=== PATIENT | female | born 1980 | race African-American/Black ===

== ENCOUNTER 2016-10-12 14:43 | Emergency (ER) | payer OTHER ==
[2016-10-12 15:07] VITALS: BP 131/63; PULSE 87; TEMP 98.5; BMI 34.1
[2016-10-12] MEDS ORDERED: SODIUM CHLORIDE 1,000 ML IV ONE (16:36)
[2016-10-12] MEDS ORDERED: ONDANSETRON 4 MG/2 ML VIAL IVPB ONE (16:36)
[2016-10-12] MEDS ORDERED: ONDANSETRON 4 MG/2 ML VIAL ONE (16:40)
--- NOTE | 2016-10-12 17:26 | PDOC ---
History of Present Illness - General Chief Complaint: Vomiting/Diarrhea Stated Complaint: ABD PAIN, VOMIT, HX OF CROHNS DX Time Seen by Provider: 10/12/16 16:21 History Source: Patient Exam Limitations: No Limitations - History of Present Illness Travel History: No Initial Comments: 10/12/16 19:16 The patient is a 36 year old female with significant past medical history of bipolar disorder, asthma, GERD, gastroparesis, pancreatitis, interstitial cystitis, colitis, C. difficile, Crohn's disease, diabetes, arthritis, avascular necrosis, kidney stone status post stents, cholecystectomy and lupus who presents to the ED with diarrhea, right lower abdominal pain, nausea and vomiting. She states that she has been having diarrhea for 7 days that initially started as watery and brown and now is watery and darker colored, denies melena.Pt endorsedfoul smell for th stool. She reports having one episode of blood in her stool for which she saw Dr. Herzog for who prompted her to present to the ED. She notes that her abdominal pain has worsened. She reports 2-3 days of vomiting yellowish in nature. She notes that using the bathroom or vomiting does not alleviate her symptoms. She reports chills but denies fever. She reports recent abx use for sinusitis her last done was 10/07. No sick contact. PCP: Dr. Chadwick Energy Sales Broker: Dr. Herzog Past History - Past Medical History Allergies/Adverse Reactions: Allergies Allergy/AdvReac Type Severity Reaction Status Date / Time metronidazole [From Flagyl] Allergy Rash Verified 10/12/16 15:02 PAPER TAPE Allergy Rash Uncoded 10/12/16 15:02 raw onion Allergy Uncoded 10/12/16 15:02 Home Medications: Ambulatory Orders Adalimumab [Humira] 40 mg SQ ASDIR 06/23/15 Azelastine HCl [Astepro] 1 - 2 spr NS BID 06/23/15 Calcium 600 mg PO DAILY 06/23/15 Cyclobenzaprine HCl [Flexeril] 10 mg PO TID 06/23/15 Escitalopram Oxalate [Lexapro -] 15 mg PO DAILY 06/23/15 Fluticasone Prop 0.05% Nasal [Flonase -] 1 - 2 spray NS DAILY 06/23/15 Gabapentin [Neurontin] 600 mg PO QID 06/23/15 Mometasone/Formoterol [Dulera 100 Mcg/5 Mcg Inhaler] 2 inh IH BID 06/23/15 Multivitamin [Poly-Vitamin] 1 each PO DAILY 06/23/15 Omalizumab [Xolair -] 150 mg SQ ASDIR 06/23/15 Omeprazole [Prilosec] 40 mg PO HS 06/23/15 Pentosan Polysulfate Sodium [Elmiron] 100 mg PO DAILY 06/23/15 Quetiapine Fumarate [Seroquel -] 200 mg PO AM 06/23/15 Quetiapine Fumarate [Seroquel -] 600 mg PO HS 06/23/15 Ergocalciferol (Vitamin D2) [Vitamin D2] 50,000 unit PO ASDIR 07/02/15 Oxybutynin Chloride [Ditropan -] 5 mg PO DAILY 07/02/15 Erythromycin Base [Erythromycin] 250 mg PO BID 10/03/15 Levocetirizine Dihydrochloride [Xyzal] 5 mg PO DAILY 10/03/15 Atorvastatin Ca [Lipitor] 10 mg PO HS 02/09/16 Lipase/Protease/Amylase [Crefina Dr 36,000 Units Capsule] 1 each PO TID 02/09/16 Lamotrigine [LaMICtal -] 100 mg PO DAILY 05/02/16 Benztropine Mesylate [Cogentin -] 0.5 mg PO DAILY 06/28/16 Nitrofurantoin Monohyd/M-Cryst [Macrobid -] 100 mg PO HS 06/28/16 Pantoprazole Sodium [Protonix] 40 mg PO DAILY #30 tablet.dr 06/28/16 Trazodone HCl [Oleptro ER] 150 mg PO HS 06/28/16 Anemia: Yes Asthma: Yes Cancer: No Cardiac Disorders: No CVA: No COPD: No CHF: No Dementia: No Diabetes: Yes (NIDDM) GI Disorders: Yes (Crohn's disease, GASTROPARESIS, IBS, GERD) Disorders: Yes (kidney stones, INTERSTITIAL CYSTITIS) HTN: No Hypercholesterolemia: Yes Kidney Stones: Yes Liver Disease: No Psychiatric Problems: Yes (BIPOLAR, SCHIZOPHRENIA) Suicide Attempt (Hx): No Seizures: No Thyroid Disease: No - Surgical History Abdominal Surgery: Yes Appendectomy: No Cardiac Surgery: No Cholecystectomy: Yes Lung Surgery: No Neurologic Surgery: Yes (SPINAL FUSION) Orthopedic Surgery: Yes (spinal fusion 05/2011,L KNEE ARTHROSCOPY) - Immunization History Immunization Up to Date: Yes (FLU AND PNA 05/2012) - Psycho/Social/Smoking Cessation Hx Anxiety: No Suicidal Ideation: No Smoking Status: Yes Smoking History: Current some day smoker Have you smoked in the past 12 months: No Number of Cigarettes Smoked Daily: 2 If you are a former smoker, when did you quit?: 2013 Cigars Per Day: 2 Information on smoking cessation initiated: No 'Breaking Loose' booklet given: 01/15/15 Hx Alcohol Use: No Drug/Substance Use Hx: No Substance Use Type: None Hx Substance Use Treatment: No Review of Systems - Review of Systems Able to Perform ROS?: Yes Comments:: 10/12/16 19:17 CONSTITUTIONAL: Reported: chills No reported: Fever, Diaphoresis, Generalized Weakness, Malaise, Loss of Appetite HEENT: No reported: Rhinorrhea, Nasal Congestion, Throat Pain, Throat Swelling, Difficulty Swallowing, Mouth Swelling, Ear Pain, Eye Pain, Visual Changes CARDIOVASCULAR: No reported: Chest Pain, Syncope, Palpitations, Irregular Heart Rate, Lightheadedness, Peripheral Edema RESPIRATORY: No reported: Cough, Shortness of Breath, SOB with Exertion, Orthopnea, Wheezing , Stridor, Hemoptysis GASTROINTESTINAL: Reported: abdominal pain, nausea, vomiting, diarrhea, melena, hematochezia No reported: Abdominal Distension, Constipation GENITOURINARY: No reported: Dysuria, Frequency, Urgency, Hesitancy, Flank Pain, Genital Pain MUSCULOSKELETAL: No reported: Myalgia, Arthralgia, Joint Swelling, Back pain, Neck Pain SKIN: No reported: Rash, Itching, Pallor HEMATOLOGIC/IMMUNOLOGIC: No reported: Easy Bleeding, Easy Bruising, Lymphadenopathy, Frequent infections ENDOCRINE: No reported: Unexplained Weight Gain, Unexplained Weight Loss, Heat Intolerance , Cold Intolerance NEUROLOGIC: No reported: Headache, Focal Weakness, Paresthesias, Vertigo, Lightheadedness, Unsteady Gait, Seizure, Mental Status Changes, Incontinence PSYCHIATRIC: No reported: Anxiety, Depression *Physical Exam - Vital Signs Last Vital Signs Temp Pulse Resp BP Pulse Ox 98.5 F 87 19 131/63 99 10/12/16 15:03 10/12/16 15:03 10/12/16 15:03 10/12/16 15:03 10/12/16 15:03 - Physical Exam Comments: 10/12/16 19:18 GENERAL: The patient is awake, alert, and fully oriented, Nontoxic - in no acute distress. HEAD: Normocephalic, atraumatic. EYES: extraocular movements intact, sclera anicteric, conjunctiva clear. ENT: Normal voice, Moist mucous membranes. NECK: Normal range of motion, No JVD LUNGS: Breath sounds equal, clear to auscultation bilaterally. No wheezes, no rhonchi, no rales. HEART: Regular rate and rhythm, normal S1 and S2 without murmur, rub or gallop. ABDOMEN: +Tenderness over RLQ. Soft, normoactive bowel sounds. No guarding, no rebound. No masses. No CVA tenderness EXTREMITIES: Normal range of motion, no edema. No clubbing or cyanosis. No cords , erythema, or tenderness. NEUROLOGICAL: No facial asymmetry, Normal speech, normal gait. PSYCH: Normal mood, normal affect. SKIN: Warm, Dry, normal turgor. ED Treatment Course - LABORATORY CBC & Chemistry Diagram: 10/12/16 18:00 10/12/16 18:00 - Medications Given in the ED: ED Medications Discontinued Medications Generic Name Dose Route Start Last Admin Trade Name Freq PRN Reason Stop Dose Admin Ondansetron HCl 4 mg 10/12/16 16:36 10/12/16 16:42 Zofran Injection IVPB 10/12/16 16:37 4 mg ONCE ONE Administration Medical Decision Making - Medical Decision Making 10/12/16 18:43 36y hx of crohns on meds (no history of compliations secondary to crohns), pancreatitis, gastroparesis, bipolar disorder, gerd, cdiff presents with abdominal pain diarrhe x 7 days associated with vomiting for 3 days. pt had one episode of bloody diarrhea earlier today. on exam the pt is well appearing in no acute distress, mild R sided abdominal tenderness blood work reviewed will obtain CT abd with iv contrast pt given fluids/zofran for symptomatic releive morphine for pain. will sign pt out to dr. vargas to fu with CT results fallick: AMA christiansen PMD A portion of this note was documented by scribe services under my direction. I have reviewed the details of the note, within reason, and agree with the documentation with the following case summary and management plan written by me *DC/Admit/Observation/Transfer Diagnosis at time of Disposition: Abdominal pain - Discharge Dispostion Disposition: HOME Condition at time of disposition: Stable - Referrals Referrals: Behzad Chadwick MD [Primary Care Provider] - Karsten Herzog MD [Staff Physician] - - Patient Instructions Printed Discharge Instructions: DI for Abdominal Pain-Adult
[2016-10-12] MEDS ORDERED: morphine CARPU-JECT 2 MG/1 ML DISP.SYRIN IVPUSH ONE (18:02)
[2016-10-12] MEDS ORDERED: morphine CARPU-JECT 4 MG/1 ML DISP.SYRIN IVPUSH ONE (18:03)
[2016-10-12] MEDS ORDERED: morphine CARPU-JECT 4 MG/1 ML DISP.SYRIN ONE (18:04)
[2016-10-12 18:08] LABS: BASOPHIL 0.8 % (0-2.0); EOSINOPHIL 0.4 % (0-4.5); MCH 30.8 pg (25.7-33.7); MCHC 33.6 g/dl (32.0-36.0); MEAN CELL VOLUME 91.5 fl (80-96); MEAN PLT VOLUME 8.8 fl (7.5-11.1); NEUTROPHILS 57.5 % (42.8-82.8); PLATELET COUNT 298 K/MM3 (134-434); RDW 13.7 % (11.6-15.6); WHITE BLOOD COUNT 12.4 K/mm3 (4.0-10.0)
[2016-10-12 18:35] LABS: URINE APPEARANCE CLEAR; URINE BILIRUBIN NEGATIVE (NEGATIVE); URINE BLOOD NEGATIVE (NEGATIVE); URINE COLOR LTYELLOW; URINE GLUCOSE (UA) NEGATIVE (NEGATIVE); URINE KETONE NEGATIVE (NEGATIVE); URINE LEUK ESTERASE NEGATIVE (NEGATIVE); URINE NITRITE NEGATIVE (NEGATIVE); URINE PROTEIN NEGATIVE (NEGATIVE); URINE UROBILINOGEN NEGATIVE E.U./dl (0.2-1.0)
[2016-10-12 18:38] LABS: ALBUMIN 4.5 g/dl (3.4-5.0); ALK PHOS 83 U/L (45-117); ANION GAP 13 (8-16); BILIRUBIN,TOTAL 0.4 mg/dL (0.2-1.0); CALCIUM 9.6 mg/dL (8.5-10.1); CO2 22 mmol/L (21-32); CREATININE 0.8 mg/dL (0.55-1.02); GLUCOSE,RANDOM 79 mg/dL (74-106); SGOT/AST 22 U/L (15-37); SGPT/ALT 68 U/L (12-78); TOT PROT 8.2 g/dl (6.4-8.2)
--- NOTE | 2016-10-12 21:55 | PDOC ---
*Physical Exam - Vital Signs Last Vital Signs Temp Pulse Resp BP Pulse Ox 98.5 F 87 19 131/63 99 10/12/16 15:03 10/12/16 15:03 10/12/16 15:03 10/12/16 15:03 10/12/16 15:03 ED Treatment Course - LABORATORY CBC & Chemistry Diagram: 10/12/16 18:00 10/12/16 18:00 - ADDITIONAL ORDERS Additional order review: Laboratory Results 10/12/16 10/12/16 10/12/16 18:11 18:00 18:00 Sodium 142 Potassium 4.0 Chloride 107 Carbon Dioxide 22 Anion Gap 13 BUN 6 L Creatinine 0.8 D Creat Clearance w eGFR > 60 Random Glucose 79 Calcium 9.6 Total Bilirubin 0.4 D AST 22 D ALT 68 D Alkaline Phosphatase 83 Total Protein 8.2 Albumin 4.5 Lipase 165 Serum , Qual Negative Urine Color Ltyellow Urine Appearance Clear Urine pH 6.0 Ur Specific Gulliver 1.011 Urine Protein Negative Urine Glucose (UA) Negative Urine Ketones Negative Urine Blood Negative Urine Nitrite Negative Urine Bilirubin Negative Urine Urobilinogen Negative Ur Leukocyte Esterase Negative 10/12/16 18:00 RBC 4.87 MCV 91.5 MCHC 33.6 RDW 13.7 MPV 8.8 Neutrophils % 57.5 Lymphocytes % 38.0 Monocytes % 3.3 L Eosinophils % 0.4 D Basophils % 0.8 - Medications Given in the ED: ED Medications Discontinued Medications Generic Name Dose Route Start Last Admin Trade Name Freq PRN Reason Stop Dose Admin Sodium Chloride 1,000 mls @ 1,000 mls/hr 10/12/16 16:36 10/12/16 16:42 Normal Saline - IV 10/12/16 17:35 1,000 mls/hr .Q1H ONE Administration Morphine Sulfate 2 mg 10/12/16 18:02 10/12/16 20:50 Morphine Injection - IVPUSH 10/12/16 18:03 Not Given ONCE ONE Morphine Sulfate 4 mg 10/12/16 18:03 10/12/16 18:10 Morphine Injection - IVPUSH 10/12/16 18:04 4 mg ONCE ONE Administration Ondansetron HCl 4 mg 10/12/16 16:36 10/12/16 16:42 Zofran Injection IVPB 10/12/16 16:37 4 mg ONCE ONE Administration Medical Decision Making - Medical Decision Making 10/12/16 21:54 Ct scan negative for intra-abdominal pathology. Pt will be discharge Pt to follow up with Dr. Herzog *DC/Admit/Observation/Transfer Diagnosis at time of Disposition: Abdominal pain Qualifiers: Abdominal location: generalized Qualified Code(s): R10.84 - Generalized abdominal pain - Discharge Dispostion Disposition: HOME Condition at time of disposition: Stable Admit: No - Referrals Referrals: Behzad Chadwick MD [Primary Care Provider] - Karsten Herzog MD [Staff Physician] - - Patient Instructions Printed Discharge Instructions: DI for Abdominal Pain-Adult
== END 2016-10-12 22:18 | disposition home or self-care (01) ==
LOC: JER 14:43
PROC: 3E033NZ Introduction of Analgesics, Hypnotics, Sedatives into Peripheral Vein, Percutaneous Approach (ICD-10-PCS; principal; 2016-10-12)
PROC: 3E033GC Introduction of Other Therapeutic Substance into Peripheral Vein, Percutaneous Approach (ICD-10-PCS; 2016-10-12)
DX: R10.84 Generalized abdominal pain (principal); K50.90 Crohn's disease, unspecified, without complications; E11.9 Type 2 diabetes mellitus without complications; Z79.84 Long term (current) use of oral hypoglycemic drugs; K86.1 Other chronic pancreatitis; K31.84 Gastroparesis; J45.909 Unspecified asthma, uncomplicated; D64.9 Anemia, unspecified; F25.0 Schizoaffective disorder, bipolar type; E78.00 Pure hypercholesterolemia, unspecified
CPT/HCPCS: 36415; 74177-TC; 80053; 81003; 83690; 84703; 85025; 99281-25; Q9967

== ENCOUNTER 2016-10-15 13:23 | Inpatient (IN) | payer OTHER ==
[2016-10-15 13:30] VITALS: BMI 34.1
--- NOTE | 2016-10-15 14:26 | PDOC ---
History of Present Illness - General History Source: Patient Exam Limitations: No Limitations - History of Present Illness Initial Comments: 10/15/16 14:42 The patient is a 36 year old female, with a significant past medical history of bipolar disorder, asthma, GERD, gastroparesis, pancreatitis, interstitial cystitis, colitis, C.difficile, Crohns disease, diabetes, arthritis, avascular necrosis, kidney stones s/p stents, and lupus, who presents to the emergency department with abdominal pain, nausea, vomiting and diarrhea for 10 days. She ranks her abdominal pain a 10/10 in pain intensity. The patient reports she was here 10/12/16 where she because she wasn't feeling better. She reports having about 11 episodes of diarrhea per day. She denies any blood in her vomit and diarrhea. She denies fever, chills, headache and dizziness. Allergies: Metronidazole Past surgical history:Colectomy Social history: Current smoker. Drinks socially. PCP: GASTRO: <Watson Santos - Last Filed: 10/15/16 17:01> <Rima Tracy - Last Filed: 10/18/16 14:30> - General Chief Complaint: Pain Stated Complaint: ABDOMINAL PAIN Time Seen by Provider: 10/15/16 14:05 Past History <Watson Santos - Last Filed: 10/15/16 17:01> - Past Medical History Anemia: Yes Asthma: Yes Cancer: No Cardiac Disorders: No CVA: No COPD: No CHF: No Dementia: No Diabetes: Yes (NIDDM) GI Disorders: Yes (Crohn's disease, GASTROPARESIS, IBS, GERD) Disorders: Yes (kidney stones, INTERSTITIAL CYSTITIS) HTN: No Hypercholesterolemia: Yes Kidney Stones: Yes Liver Disease: No Psychiatric Problems: Yes (BIPOLAR, SCHIZOPHRENIA) Suicide Attempt (Hx): No Seizures: No Thyroid Disease: No Other medical history: LUPUS - Surgical History Abdominal Surgery: Yes Appendectomy: No Cardiac Surgery: No Cholecystectomy: Yes Lung Surgery: No Neurologic Surgery: Yes (SPINAL FUSION) Orthopedic Surgery: Yes (spinal fusion 05/2011,L KNEE ARTHROSCOPY) - Immunization History Immunization Up to Date: Yes (FLU AND PNA 05/2012) - Psycho/Social/Smoking Cessation Hx Anxiety: No Suicidal Ideation: No Smoking Status: Yes Smoking History: Current every day smoker Have you smoked in the past 12 months: No Number of Cigarettes Smoked Daily: 3 If you are a former smoker, when did you quit?: 2013 Cigars Per Day: 2 Information on smoking cessation initiated: No 'Breaking Loose' booklet given: 01/15/15 Hx Alcohol Use: Yes (SOCIAL) Drug/Substance Use Hx: No Substance Use Type: None Hx Substance Use Treatment: No <Rima Tracy - Last Filed: 10/18/16 14:30> - Past Medical History Allergies/Adverse Reactions: Allergies Allergy/AdvReac Type Severity Reaction Status Date / Time metronidazole [From Flagyl] AdvReac Vomiting Verified 10/15/16 18:27 PAPER TAPE Allergy Rash Uncoded 10/15/16 13:30 raw onion Allergy Uncoded 10/15/16 13:30 Home Medications: Ambulatory Orders Adalimumab [Humira] 40 mg SQ ASDIR 06/23/15 Azelastine HCl [Astepro] 1 - 2 spr NS BID 06/23/15 Calcium 600 mg PO DAILY 06/23/15 Cyclobenzaprine HCl [Flexeril] 10 mg PO TID 06/23/15 Escitalopram Oxalate [Lexapro -] 15 mg PO DAILY 06/23/15 Fluticasone Prop 0.05% Nasal [Flonase -] 1 - 2 spray NS DAILY 06/23/15 Gabapentin [Neurontin] 600 mg PO QID 06/23/15 Mometasone/Formoterol [Dulera 100 Mcg/5 Mcg Inhaler] 2 inh IH BID 06/23/15 Multivitamin [Poly-Vitamin] 1 each PO DAILY 06/23/15 Omeprazole [Prilosec] 40 mg PO HS 06/23/15 Quetiapine Fumarate [Seroquel -] 200 mg PO AM 06/23/15 Quetiapine Fumarate [Seroquel -] 600 mg PO HS 06/23/15 Oxybutynin Chloride [Ditropan -] 5 mg PO DAILY 07/02/15 Atorvastatin Ca [Lipitor] 10 mg PO HS 02/09/16 Lamotrigine [LaMICtal -] 100 mg PO DAILY 05/02/16 Benztropine Mesylate [Cogentin -] 0.5 mg PO DAILY 06/28/16 Pantoprazole Sodium [Protonix] 40 mg PO DAILY #30 tablet.dr 06/28/16 Metronidazole 500 mg PO TID #15 tablet 10/17/16 Review of Systems - Review of Systems Able to Perform ROS?: Yes Comments:: 10/15/16 14:42 GENERAL/CONSTITUTIONAL: No fever or chills. No weakness. HEAD, EYES, EARS, NOSE AND THROAT: No change in vision. No ear pain or discharge. No sore throat. CARDIOVASCULAR: No chest pain or shortness of breath. RESPIRATORY: No cough, wheezing, or hemoptysis. GASTROINTESTINAL: yes nausea, vomiting, diarrhea and abd pain. GENITOURINARY: No dysuria, frequency, or change in urination. MUSCULOSKELETAL: No joint or muscle swelling or pain. No neck or back pain. SKIN: No rash NEUROLOGIC: No headache, vertigo, loss of consciousness, or change in strength/ sensation. ENDOCRINE: No increased thirst. No abnormal weight change. HEMATOLOGIC/LYMPHATIC: No anemia, easy bleeding, or history of blood clots. ALLERGIC/IMMUNOLOGIC: No hives or skin allergy. <Watson Santos - Last Filed: 10/15/16 17:01> *Physical Exam - Vital Signs Last Vital Signs Temp Pulse Resp BP Pulse Ox 98.0 F 110 H 20 133/79 97 10/15/16 13:27 10/15/16 13:27 10/15/16 13:27 10/15/16 13:27 10/15/16 13:27 - Physical Exam Comments: 10/15/16 14:42 GENERAL: Awake, alert, and fully oriented, in no acute distress HEAD: No signs of trauma EYES: PERRLA, EOMI, sclera anicteric, conjunctiva clear ENT: Auricles normal inspection, hearing grossly normal, nares patent, oropharynx clear without exudates. Dry mucosa NECK: Normal ROM, supple, no lymphadenopathy, JVD, or masses LUNGS: Breath sounds equal, clear to auscultation bilaterally. No wheezes, and no crackles HEART: Tachycardia. Regular rate and rhythm, normal S1 and S2, no murmurs, rubs or gallops ABDOMEN: Diffuse mild tenderness. Soft, normoactive bowel sounds. No guarding, no rebound. No masses EXTREMITIES: Normal range of motion, no edema. No clubbing or cyanosis. No cords, erythema, or tenderness NEUROLOGICAL: Cranial nerves II through XII grossly intact. Normal speech, normal gait SKIN: Warm, Dry, normal turgor, no rashes or lesions noted. <Watson Santos - Last Filed: 10/15/16 17:01> - Vital Signs Last Vital Signs Temp Pulse Resp BP Pulse Ox 98.0 F 110 H 20 133/79 97 10/15/16 13:27 10/15/16 13:27 10/15/16 13:27 10/15/16 13:27 10/15/16 13:27 <Rima Tracy - Last Filed: 10/18/16 14:30> ED Treatment Course - LABORATORY CBC & Chemistry Diagram: 10/15/16 14:55 10/15/16 14:55 <Watson Santos - Last Filed: 10/15/16 17:01> - LABORATORY CBC & Chemistry Diagram: 10/16/16 07:00 10/17/16 06:15 <Rima Tracy - Last Filed: 10/18/16 14:30> Medical Decision Making - Medical Decision Making 10/15/16 16:06 Call made to , will call back. 10/15/16 16:46 Call made to , awaiting call back. 10/15/16 17:01 Call back from , case discussed. <Watson Santos - Last Filed: 10/15/16 17:01> - Medical Decision Making 10/15/16 17:02 Patient recently in the ED for similar symptoms, was discharged home after negative CT. Results reviewed- no signs of colitis. She has been taking immodium at the recommendation of Dr. Herzog, which is not working. I have given lomotil in ED, as recent CT was normal. Patient with some improvement. I will continue IV hydration and pain medication. Case d/w Dr. Fournier. Will evaluate tomorrow. <Rima Tracy - Last Filed: 10/18/16 14:30> *DC/Admit/Observation/Transfer - Attestations Scribe Attestion: 10/15/16 14:42 Documentation prepared by Watson Santos, acting as anesthesiology medical doctor for Rima Tracy MD. <Watson Santos - Last Filed: 10/15/16 17:01> - Discharge Dispostion Admit: Yes <Rima Tracy - Last Filed: 10/18/16 14:30> Diagnosis at time of Disposition: Diarrhea Qualifiers: Diarrhea type: unspecified type Qualified Code(s): R19.7 - Diarrhea, unspecified Crohn's disease (regional enteritis) Qualifiers: Gastrointestinal tract location: unspecified location Digestive disease complication type: without complication Qualified Code(s): K50.90 - Crohn's disease, unspecified, without complications - Discharge Dispostion Disposition: HOME Condition at time of disposition: Stable - Prescriptions - Referrals
[2016-10-15] MEDS ORDERED: DIPHENOXYLATE 2.5/ATROPINE.025 1 COMBO TABLET PO ONE (14:40)
[2016-10-15] MEDS ORDERED: SODIUM CHLORIDE 1,000 ML IV STA ×2 (14:40→16:24)
[2016-10-15] MEDS ORDERED: HYDROmorphone HCL CARPU-JECT 1 MG/1 ML DISP.SYRIN IVPUSH ONE ×2 (14:42→16:24)
[2016-10-15] MEDS ORDERED: HYDROmorphone HCL CARPU-JECT 1 MG/1 ML DISP.SYRIN ONE ×2 (14:56→16:32)
[2016-10-15] MEDS ORDERED: DIPHENOXYLATE 2.5/ATROPINE.025 1 COMBO TABLET ONE (14:57)
[2016-10-15 15:03] LABS: URINE APPEARANCE SLCLOUDY; URINE BILIRUBIN NEGATIVE (NEGATIVE); URINE BLOOD NEGATIVE (NEGATIVE); URINE COLOR YELLOW; URINE GLUCOSE (UA) NEGATIVE (NEGATIVE); URINE KETONE NEGATIVE (NEGATIVE); URINE LEUK ESTERASE NEGATIVE (NEGATIVE); URINE NITRITE NEGATIVE (NEGATIVE); URINE PROTEIN 1+ (NEGATIVE); URINE UROBILINOGEN NEGATIVE E.U./dl (0.2-1.0)
[2016-10-15] MEDS ORDERED: ONDANSETRON 4 MG/2 ML VIAL IVPUSH ONE (15:03)
[2016-10-15 15:08] LABS: URINE BACTERIA RARE /hpf (NONE SEEN); URINE MUCUS FEW; URINE RBC 1 /hpf (0-3); URINE WBC 3 /hpf (3-5)
[2016-10-15] MEDS ORDERED: ONDANSETRON 4 MG/2 ML VIAL ONE (15:08)
[2016-10-15 15:15] LABS: BASOPHIL 0.1 % (0-2.0); EOSINOPHIL 0.6 % (0-4.5); MCH 30.3 pg (25.7-33.7); MCHC 33.5 g/dl (32.0-36.0); MEAN CELL VOLUME 90.4 fl (80-96); MEAN PLT VOLUME 8.6 fl (7.5-11.1); NEUTROPHILS 83.8 % (42.8-82.8); PLATELET COUNT 292 K/MM3 (134-434); RDW 13.7 % (11.6-15.6); WHITE BLOOD COUNT 16.1 K/mm3 (4.0-10.0)
[2016-10-15 15:49] LABS: ANION GAP 12 (8-16); BILIRUBIN,TOTAL 0.5 mg/dL (0.2-1.0); CALCIUM 9.1 mg/dL (8.5-10.1); CO2 19 mmol/L (21-32); CREATININE 0.9 mg/dL (0.55-1.02); GLUCOSE,RANDOM 104 mg/dL (74-106); SGOT/AST 16 U/L (15-37); SGPT/ALT 49 U/L (12-78); TOT PROT 7.9 g/dl (6.4-8.2)
[2016-10-15 15:52] LABS: ALK PHOS 76 U/L (45-117)
[2016-10-15] MEDS ORDERED: VANCOMYCIN 250 MG/5 ML ORAL SOLUTION PO ONE (16:45)
[2016-10-15] MEDS ORDERED: VANCOMYCIN 1 GRAM (PRE-DOCKED) 250 ML IVPB ONE (17:11)
[2016-10-15] MEDS ORDERED: FAMOTIDINE 20 MG/50 ML IVPB 50 ML IVPB ONE ×2 (17:20→17:21)
[2016-10-15] MEDS ORDERED: MAG HYDROX/AL HYDROX/SIMETH 30 ML UNIT-DOSE CUP PO ONE (17:37)
[2016-10-15] MEDS ORDERED: MAG HYDROX/AL HYDROX/SIMETH 30 ML UNIT-DOSE CUP ONE (17:39)
--- NOTE | 2016-10-15 17:39 | HP ---
[id number] old female with PMHx of Crohns Disease, GERD, gastroparesis, c.diff , colitis, interstitial cystitis, diabetes, nephrolithiasis S/P stent placement , bipolar disorder, asthma who was sent to to the ED by GI Dr. Soto for abdominal pain and diarrhea. The patient reports diarrhea began on 10/06 and has become progressively worse. She reports on Sunday she began to vomit bilious substance. She denies any blood in in stool or vomitus. She states for two days she has not been able to keep any solid food down. She reports pain is epigastric that radiates down to her RLQ. She also reports fever of 102.2 last night. She took tylenol but vomited it up. CTAP on 10/12/16 with no evidence of Crohn's disease or acute pathology within the abdomen or pelvis. The patient denies chills, dysuria, frequency, headache, dizziness, chest pain, shortness of breath ER course was notable for: (1) temp 98, HR 110, BP 133/79, resp 20, O2 97% (2) WBC 16.1 (3) Lomotil given Recent Travel: No PAST MEDICAL HISTORY: As above Social History: Smoking: Yest Alcohol: Socially Drugs: No Family History: Allergies metronidazole [From Flagyl] Allergy (Verified 10/15/16 13:30) Rash PAPER TAPE Allergy (Uncoded 10/15/16 13:30) Rash raw onion Allergy (Uncoded 10/15/16 13:30) HOME MEDICATIONS: Medication Instructions Recorded Adalimumab [Humira] 40 mg SQ ASDIR 06/23/15 Azelastine HCl [Astepro] 1 - 2 spr NS BID 06/23/15 Calcium 600 mg PO DAILY 06/23/15 Cyclobenzaprine HCl [Flexeril] 10 mg PO TID 06/23/15 Escitalopram Oxalate [Lexapro -] 15 mg PO DAILY 06/23/15 Fluticasone Prop 0.05% Nasal 1 - 2 spray NS DAILY 06/23/15 [Flonase -] Gabapentin [Neurontin] 600 mg PO QID 06/23/15 Mometasone/Formoterol [Dulera 100 2 inh IH BID 06/23/15 Mcg/5 Mcg Inhaler] Multivitamin [Poly-Vitamin] 1 each PO DAILY 06/23/15 Omeprazole [Prilosec] 40 mg PO HS 06/23/15 Quetiapine Fumarate [Seroquel -] 200 mg PO AM 06/23/15 Quetiapine Fumarate [Seroquel -] 600 mg PO HS 06/23/15 Oxybutynin Chloride [Ditropan -] 5 mg PO DAILY 07/02/15 Atorvastatin Ca [Lipitor] 10 mg PO HS 02/09/16 Lamotrigine [LaMICtal -] 100 mg PO DAILY 05/02/16 Benztropine Mesylate [Cogentin -] 0.5 mg PO DAILY 06/28/16 Nitrofurantoin Monohyd/M-Cryst 100 mg PO HS 06/28/16 [Macrobid -] Pantoprazole Sodium [Protonix] 40 mg PO DAILY #30 tablet.dr 06/28/16 Trazodone HCl [Oleptro ER] 150 mg PO HS 06/28/16 REVIEW OF SYSTEMS CONSTITUTIONAL: Fever 102.2 last night. Absent: chills, diaphoresis, generalized weakness, malaise, loss of appetite, weight change HEENT: Absent: rhinorrhea, nasal congestion, throat pain, throat swelling, difficulty swallowing, mouth swelling, ear pain, eye pain, visual changes CARDIOVASCULAR: Absent: chest pain, syncope, palpitations, irregular heart rate , lightheadedness, peripheral edema RESPIRATORY: Absent: cough, shortness of breath, dyspnea with exertion, orthopnea, wheezing, stridor, hemoptysis GASTROINTESTINAL: Diarrhea since 10/06/16, vomiting began on 10/10. Epigastric abdominal pain radiating to RLQ. Absent: abdominal distension, constipation, melena, hematochezia GENITOURINARY: Absent: dysuria, frequency, urgency, hesitancy, hematuria, flank pain, genital pain MUSCULOSKELETAL: Absent: myalgia, arthralgia, joint swelling, back pain, neck pain SKIN: Absent: rash, itching, pallor HEMATOLOGIC/IMMUNOLOGIC: Absent: easy bleeding, easy bruising, lymphadenopathy, frequent infections ENDOCRINE:Absent: unexplained weight gain, unexplained weight loss, heat intolerance, cold intolerance NEUROLOGIC: Absent: headache, focal weakness or paresthesias, dizziness, unsteady gait, seizure, mental status changes, bladder or bowel incontinence PSYCHIATRIC: Absent: anxiety, depression, suicidal or homicidal ideation, hallucinations. PHYSICAL EXAMINATION GENERAL: Awake, alert, and fully oriented, in no acute distress. HEAD: Normal with no signs of trauma. EYES: Pupils equal, round and reactive to light, extraocular movements intact, sclera anicteric, conjunctiva clear. No lid lag. EARS, NOSE, THROAT: Tongue piercing. Ears normal, nares patent, oropharynx clear without exudates. Moist mucous membranes. NECK: Normal range of motion, supple without lymphadenopathy, JVD, or masses. LUNGS: Breath sounds equal, clear to auscultation bilaterally. No wheezes, and no crackles. No accessory muscle use. HEART: Regular rate and rhythm, normal S1 and S2 without murmur, rub or gallop. ABDOMEN: Soft, Epigastric and RLQ tenderness. Soft, not distended, normoactive bowel sounds, no guarding, no rebound, no masses. MUSCULOSKELETAL: Normal range of motion at all joints. No bony deformities or tenderness. No CVA tenderness. UPPER EXTREMITIES: 2+ pulses, warm, well-perfused. No cyanosis. No clubbing. Cap refill <2 seconds. No peripheral edema. LOWER EXTREMITIES: 2+ pulses, warm, well-perfused. No calf tenderness. No peripheral edema. NEUROLOGICAL: Cranial nerves II-XII intact. Normal speech. Normal gait. PSYCHIATRIC: Cooperative. Good eye contact. Appropriate mood and affect. SKIN: Warm, dry, normal turgor, no rashes or lesions noted. CBCD WBC 16.1 K/mm3 (4.0-10.0) H 10/15/16 14:55 RBC 4.61 M/mm3 (3.60-5.2) 10/15/16 14:55 Hgb 14.0 GM/dL (10.7-15.3) 10/15/16 14:55 Hct 41.7 % (32.4-45.2) 10/15/16 14:55 MCV 90.4 fl (80-96) 10/15/16 14:55 MCHC 33.5 g/dl (32.0-36.0) 10/15/16 14:55 RDW 13.7 % (11.6-15.6) 10/15/16 14:55 Plt Count 292 K/MM3 (134-434) 10/15/16 14:55 MPV 8.6 fl (7.5-11.1) 10/15/16 14:55 CMP Sodium 139 mmol/L (136-145) 10/15/16 14:55 Potassium 3.6 mmol/L (3.5-5.1) 10/15/16 14:55 Chloride 108 mmol/L (98-107) H 10/15/16 14:55 Carbon Dioxide 19 mmol/L (21-32) L 10/15/16 14:55 Anion Gap 12 (8-16) 10/15/16 14:55 BUN 8 mg/dL (7-18) D 10/15/16 14:55 Creatinine 0.9 mg/dL (0.55-1.02) 10/15/16 14:55 Creat Clearance w eGFR > 60 (>60) 10/15/16 14:55 Random Glucose 104 mg/dL (74-106) D 10/15/16 14:55 Calcium 9.1 mg/dL (8.5-10.1) 10/15/16 14:55 Total Bilirubin 0.5 mg/dL (0.2-1.0) D 10/15/16 14:55 AST 16 U/L (15-37) D 10/15/16 14:55 ALT 49 U/L (12-78) D 10/15/16 14:55 Alkaline Phosphatase 76 U/L (45-117) 10/15/16 14:55 Total Protein 7.9 g/dl (6.4-8.2) 10/15/16 14:55 Albumin 4.0 g/dl (3.4-5.0) 10/15/16 14:55 Assessment: This is a 36 year old female with PMHx of Crohns Disease, GERD, gastroparesis, colitis, interstitial cystitis, diabetes, nephrolithiasis S/P stent placement, bipolar disorder, asthma who was sent to to the ED by GI Dr. Soto for abdominal pain and diarrhea since 10/06. Plan: 1) GI: Diarrhea, r/o c.diff colitis, sepsis 2/2 gastroenteritis +/- c/diff - CTAP from 10/12 with no evidence of acute pathology - Per patient, hx of c.diff - Leukocytosis - F/u c.diff culture - F/u stool cultures - Continue Vancomycin po - IV fluids - Zofran prn nausea - F/u GI consult GERD - Continue Protonix 2) Psych: Bipolar disorder - Continue home medications 3) Pulmonary: Asthma - No active issues - Continue Dulera 4) F/E/N: - Monitor electrolytes - CL diet 5) Prophylaxis: - SCDs bilaterally - Lovenox 40mg sq daily 6) Dispo: - Requires continued inpatient care CODE STATUS: FULL CODE Visit type - Emergency Visit Emergency Visit: Yes ED Registration Date: 10/15/16 Care time: The patient presented to the Emergency Department on the above date and was hospitalized for further evaluation of their emergent condition. - New Patient This patient is new to me today: Yes Date on this admission: 10/15/16 - Critical Care Critical Care patient: No
[2016-10-15] MEDS ORDERED: SODIUM CHLORIDE 1,000 ML IV SCH (17:45)
[2016-10-15] MEDS ORDERED: ONDANSETRON 4 MG/2 ML VIAL IVPB PRN (18:16)
[2016-10-15] MEDS: GABAPENTIN 300 MG CAPSULE (FP) PO SCH ×2 (18:30→22:00)
[2016-10-15] MEDS ORDERED: GABAPENTIN 100 MG CAPSULE (FP) ONE (18:39)
[2016-10-15] MEDS: SODIUM CHLORIDE 1,000 ML IV SCH (18:45)
[2016-10-15] MEDS ORDERED: PT OWN MED DRAWER 7, Y5N ONE (21:20)
[2016-10-15] MEDS ORDERED: TRAZODONE HCL 150 MG PO SCH (22:00)
[2016-10-15] MEDS ORDERED: AZELASTINE HCL NS SCH (22:00)
[2016-10-15] MEDS: QUEtiapine FUMARATE 200 MG TABLET PO SCH (22:00)
[2016-10-15] MEDS: CYCLOBENZAPRINE HCL 10 MG TABLET (FP) PO SCH (22:01)
[2016-10-15] MEDS: VANCOMYCIN 250 MG/5 ML ORAL SOLUTION PO SCH (23:05)
[2016-10-16] MEDS: VANCOMYCIN 250 MG/5 ML ORAL SOLUTION PO SCH ×3 (06:09→17:31)
[2016-10-16] MEDS: QUEtiapine FUMARATE 200 MG TABLET PO SCH ×2 (06:09→21:42)
[2016-10-16] MEDS: CYCLOBENZAPRINE HCL 10 MG TABLET (FP) PO SCH ×3 (06:09→21:41)
--- NOTE | 2016-10-16 07:44 | PN ---
[id number] bedside, she states she had 4 bowel movements in the ED, and has not had one since yesterday afternoon just prior to receiving Lomotil. Tmax 99.5 Current Medications Generic Name Dose Route Start Last Admin Trade Name Freq PRN Reason Stop Dose Admin Benztropine Mesylate 0.5 mg 10/16/16 10:00 Cogentin - PO DAILY KAITLIN Cyclobenzaprine HCl 10 mg 10/15/16 22:00 10/16/16 06:09 Flexeril - PO 10 mg TID KAITLIN Administration Enoxaparin Sodium 40 mg 10/16/16 10:00 Lovenox - SQ DAILY KAITLIN Escitalopram Oxalate 15 mg 10/16/16 10:00 Lexapro - PO DAILY KAITLIN Fluticasone Propionate 2 spray 10/16/16 10:00 Flonase - NS DAILY KAITLIN Gabapentin 600 mg 10/15/16 18:00 10/15/16 22:00 Neurontin - PO 600 mg QID KAITLIN Administration Sodium Chloride 1,000 mls @ 125 mls/hr 10/15/16 18:37 10/15/16 18:45 Normal Saline - IV 125 mls/hr ASDIR KAITLIN Administration Lamotrigine 100 mg 10/16/16 10:00 Lamictal - PO DAILY KAITLIN Multivitamins/Minerals/Vitamin C 1 tab 10/16/16 10:00 Tab-A-Vit - PO DAILY KAITLIN Non-Formulary Medication 1 - 2 spr 10/15/16 22:00 Azelastine Hcl [Astepro] NS BID KAITLIN Non-Formulary Medication 2 inh 10/15/16 22:00 Mometasone/Formoterol [Dulera 100 Mcg/5 Mcg Inhaler] IH BID KAITLIN Non-Formulary Medication 150 mg 10/15/16 22:00 Trazodone Hcl [Oleptro Er] PO HS KAITLIN Ondansetron HCl 4 mg 10/15/16 18:16 Zofran Injection IVPB Q6H PRN NAUSEA Oxybutynin Chloride 5 mg 10/16/16 10:00 Ditropan - PO DAILY KAITLIN Pantoprazole Sodium 40 mg 10/16/16 10:00 Protonix - PO DAILY KAITLIN Quetiapine Fumarate 200 mg 10/16/16 07:00 10/16/16 06:09 Seroquel - PO 200 mg AM KAITLIN Administration Quetiapine Fumarate 600 mg 10/15/16 22:00 10/15/16 22:00 Seroquel - PO 600 mg HS KAITLIN Administration Vancomycin HCl 250 mg 10/16/16 00:00 10/16/16 06:09 Vancomycin Oral Solution PO 250 mg Q6HPO KAITLIN Administration Objective: Vital Signs Period Temp Pulse Resp BP Sys/Borrego Pulse Ox Last 24 Hr 98.0 F-99.5 F 70-110 16-20 93-133/55-79 97-100 Physical Exam: General: NAD, A&Ox3 Lungs: CTA bilaterally Heart: RRR, S1S2 Abd: Soft, mild epigastric tenderness. Non-distended. Normoactive bowel sounds Ext: Warm, well-perfused. 2+ DP/PT bilaterally Neuro: CN 2-12 intact CBCD WBC 16.1 K/mm3 (4.0-10.0) H 10/15/16 14:55 RBC 4.61 M/mm3 (3.60-5.2) 10/15/16 14:55 Hgb 14.0 GM/dL (10.7-15.3) 10/15/16 14:55 Hct 41.7 % (32.4-45.2) 10/15/16 14:55 MCV 90.4 fl (80-96) 10/15/16 14:55 MCHC 33.5 g/dl (32.0-36.0) 10/15/16 14:55 RDW 13.7 % (11.6-15.6) 10/15/16 14:55 Plt Count 292 K/MM3 (134-434) 10/15/16 14:55 MPV 8.6 fl (7.5-11.1) 10/15/16 14:55 CMP Sodium 139 mmol/L (136-145) 10/15/16 14:55 Potassium 3.6 mmol/L (3.5-5.1) 10/15/16 14:55 Chloride 108 mmol/L (98-107) H 10/15/16 14:55 Carbon Dioxide 19 mmol/L (21-32) L 10/15/16 14:55 Anion Gap 12 (8-16) 10/15/16 14:55 BUN 8 mg/dL (7-18) D 10/15/16 14:55 Creatinine 0.9 mg/dL (0.55-1.02) 10/15/16 14:55 Creat Clearance w eGFR > 60 (>60) 10/15/16 14:55 Random Glucose 104 mg/dL (74-106) D 10/15/16 14:55 Calcium 9.1 mg/dL (8.5-10.1) 10/15/16 14:55 Total Bilirubin 0.5 mg/dL (0.2-1.0) D 10/15/16 14:55 AST 16 U/L (15-37) D 10/15/16 14:55 ALT 49 U/L (12-78) D 10/15/16 14:55 Alkaline Phosphatase 76 U/L (45-117) 10/15/16 14:55 Total Protein 7.9 g/dl (6.4-8.2) 10/15/16 14:55 Albumin 4.0 g/dl (3.4-5.0) 10/15/16 14:55 Assessment: This is a 36 year old female with PMHx of Crohns Disease, GERD, gastroparesis, colitis, interstitial cystitis, diabetes, nephrolithiasis S/P stent placement, bipolar disorder, asthma who was sent to to the ED by GI Dr. Soto for abdominal pain and diarrhea since 10/06. Plan: 1) GI: Diarrhea, r/o c.diff colitis, sepsis 2/2 gastroenteritis +/- c.diff - No bowel movements since yesterday afternoon - CTAP from 10/12 with no evidence of acute pathology - Per patient, hx of c.diff - Leukocytosis resolved - F/u c.diff culture - F/u stool cultures - Continue Vancomycin po - IV fluids - Zofran prn nausea - F/u GI consult GERD - Continue Protonix Elevated liver enzymes - F/u lipase - F/u ultrasound 2) Psych: Bipolar disorder - Continue home medications 3) Pulmonary: Asthma - No active issues - Continue Dulera 4) F/E/N: - Monitor electrolytes - CL diet, patient has only tolerated ice overnight 5) Prophylaxis: - SCDs bilaterally - Lovenox 40mg sq daily 6) Dispo: - Requires continued inpatient care CODE STATUS: FULL CODE Visit type - Emergency Visit Emergency Visit: Yes ED Registration Date: 10/15/16 Care time: The patient presented to the Emergency Department on the above date and was hospitalized for further evaluation of their emergent condition. - New Patient This patient is new to me today: No - Critical Care Critical Care patient: No
[2016-10-16 07:59] LABS: BASOPHIL 0.3 % (0-2.0); EOSINOPHIL 1.8 % (0-4.5); MCH 31.5 pg (25.7-33.7); MCHC 34.4 g/dl (32.0-36.0); MEAN CELL VOLUME 91.7 fl (80-96); MEAN PLT VOLUME 8.5 fl (7.5-11.1); NEUTROPHILS 67.4 % (42.8-82.8); PLATELET COUNT 219 K/MM3 (134-434); RDW 13.9 % (11.6-15.6); WHITE BLOOD COUNT 7.8 K/mm3 (4.0-10.0)
[2016-10-16 08:36] LABS: ALBUMIN 2.9 g/dl (3.4-5.0); ALK PHOS 75 U/L (45-117); ANION GAP 10 (8-16); BILIRUBIN,TOTAL 0.3 mg/dL (0.2-1.0); CO2 20 mmol/L (21-32); CREATININE 0.7 mg/dL (0.55-1.02); GLUCOSE,RANDOM 78 mg/dL (74-106); MAGNESIUM 2.3 mg/dL (1.8-2.4); SGOT/AST 51 U/L (15-37); SGPT/ALT 92 U/L (12-78); TOT PROT 5.5 g/dl (6.4-8.2)
[2016-10-16] MEDS ORDERED: PT OWN MED DRAWER 7, Y5N ONE ×4 (09:32→20:38)
[2016-10-16] MEDS: OXYBUTYNIN CHLORIDE 5 MG TABLET PO SCH (09:36)
[2016-10-16] MEDS: BENZTROPINE MESYLATE 0.5 MG TABLET (FP) PO SCH (09:36)
[2016-10-16] MEDS: ESCITALOPRAM OXALATE 10 MG TABLET (FP) PO SCH (09:37)
[2016-10-16] MEDS: PANTOPRAZOLE 40 MG TABLET (FP) PO SCH (09:39)
[2016-10-16] MEDS: MULTIVITAMINS (DAILY MVI) TABLET (FP) PO SCH (09:39)
[2016-10-16] MEDS: ENOXAPARIN NA (PORCINE) 40 MG/0.4 ML DISP.SYRIN SQ SCH (09:39)
[2016-10-16] MEDS: KCL 10 MEQ IVPB 100 ML IVPB SCH ×2 (09:42→10:45)
[2016-10-16] MEDS: GABAPENTIN 300 MG CAPSULE (FP) PO SCH ×4 (09:44→21:41)
--- NOTE | 2016-10-16 10:26 | EKG ---
Test Reason : Blood Pressure : / mmHG Vent. Rate : 081 BPM Atrial Rate : 081 BPM P-R Int : 156 ms QRS Dur : 076 ms QT Int : 376 ms P-R-T Axes : 052 051 023 degrees QTc Int : 436 ms NORMAL SINUS RHYTHM NONSPECIFIC T WAVE ABNORMALITY ABNORMAL ECG WHEN COMPARED WITH ECG OF 03-OCT-2015 18:37, NONSPECIFIC T WAVE ABNORMALITY NOW EVIDENT IN ANTERIOR LEADS Confirmed by LINDA GARCÍA MD ([id number]) on 10/16/2016 10:25:42 AM Referred By: Confirmed By:LINDA GARCÍA MD
[2016-10-16] MEDS: FLUTICASONE PROP 0.05% 16 GM NASAL SPRAY NS SCH (10:35)
[2016-10-16] MEDS: lamoTRIgine 100 MG TABLET (FP) PO SCH (10:36)
[2016-10-16] MEDS ORDERED: HYDROmorphone HCL CARPU-JECT 1 MG/1 ML DISP.SYRIN IVPB ONE ×2 (10:58→16:55)
[2016-10-16] MEDS: SODIUM CHLORIDE 1,000 ML IV SCH ×3 (13:52→23:05)
[2016-10-16] MEDS ORDERED: HYDROmorphone HCL CARPU-JECT 1 MG/1 ML DISP.SYRIN IVPB PRN (17:44)
--- NOTE | 2016-10-16 19:08 | CON.GI ---
Consult Consult Specialty:: GI Referred by:: Dr Saldaña Reason for Consultation:: Abdominal pain and diarrhea - History of Present Illness Chief Complaint: Diarrhea History of Present Illness: 36 F well-known to myself, formerly seen by Dr Rodriguez, admitted with abdominal pain and diarrhea. She was seen in my office and sent to the ER because her complaint of 20 BM per day" and severe 10/10 pain. The pain is epigastric and RLQ. She carries a diagnosis of Crohns but it is not clear that she ever had this problem. She has been on biologic meds in the past by her account. Prior w/u negative to date. - History Source History Provided By: Patient, Medical Record Limitations to Obtaining History: Poor Historian - Past Medical History Gastrointestinal: Yes: Crohn's Disease, GERD Renal/: Yes: Renal Calculi ...LMP: 09/16/15 - Alcohol/Substance Use Hx Alcohol Use: Yes (SOCIAL) - Smoking History Smoking history: Current every day smoker Have you smoked in the past 12 months: No Aproximately how many cigarettes per day: 3 If you are a former smoker, when did you quit?: 2014 Home Medications - Allergies Allergies/Adverse Reactions: Allergies Allergy/AdvReac Type Severity Reaction Status Date / Time metronidazole [From Flagyl] AdvReac Vomiting Verified 10/15/16 18:27 PAPER TAPE Allergy Rash Uncoded 10/15/16 13:30 raw onion Allergy Uncoded 10/15/16 13:30 - Home Medications Home Medications: Ambulatory Orders Adalimumab [Humira] 40 mg SQ ASDIR 06/23/15 Azelastine HCl [Astepro] 1 - 2 spr NS BID 06/23/15 Calcium 600 mg PO DAILY 06/23/15 Cyclobenzaprine HCl [Flexeril] 10 mg PO TID 06/23/15 Escitalopram Oxalate [Lexapro -] 15 mg PO DAILY 06/23/15 Fluticasone Prop 0.05% Nasal [Flonase -] 1 - 2 spray NS DAILY 06/23/15 Gabapentin [Neurontin] 600 mg PO QID 06/23/15 Mometasone/Formoterol [Dulera 100 Mcg/5 Mcg Inhaler] 2 inh IH BID 06/23/15 Multivitamin [Poly-Vitamin] 1 each PO DAILY 06/23/15 Omeprazole [Prilosec] 40 mg PO HS 06/23/15 Quetiapine Fumarate [Seroquel -] 200 mg PO AM 06/23/15 Quetiapine Fumarate [Seroquel -] 600 mg PO HS 06/23/15 Oxybutynin Chloride [Ditropan -] 5 mg PO DAILY 07/02/15 Atorvastatin Ca [Lipitor] 10 mg PO HS 02/09/16 Lamotrigine [LaMICtal -] 100 mg PO DAILY 05/02/16 Benztropine Mesylate [Cogentin -] 0.5 mg PO DAILY 06/28/16 Nitrofurantoin Monohyd/M-Cryst [Macrobid -] 100 mg PO HS 06/28/16 Pantoprazole Sodium [Protonix] 40 mg PO DAILY #30 tablet. 06/28/16 Trazodone HCl [Oleptro ER] 150 mg PO HS 06/28/16 Family Disease History - Family Disease History Family Disease History: Diabetes: Father, Heart Disease: Father, Respiratory: Mother (two brain aneurysms), Other: Mother Physical Exam-GI Vital Signs: Vital Signs Temperature 99.1 F 10/16/16 15:00 Pulse Rate 79 10/16/16 15:00 Respiratory Rate 18 10/16/16 15:00 Blood Pressure 111/63 10/16/16 09:00 O2 Sat by Pulse Oximetry (%) 100 10/15/16 21:00 Constitutional: Yes: Well Nourished HENT: Yes: Normocephalic Neck: Yes: Supple Cardiovascular: Yes: Regular Rate and Rhythm Respiratory: Yes: CTA Bilaterally Gastrointestinal Inspection: Yes: WNL ...Auscultate: Yes: Normoactive Bowel Sounds ...Palpate: Yes: Soft, Tenderness (RLQ), Tenderness, Epigastium Labs: CBC, BMP 10/16/16 07:00 10/16/16 07:00 Assessment/Plan Patient with elaborate PMH but very little in the way of objective findings. Will do EGD and colon while admitted. Will check IBD serologies. Stool collected for analysis. Continue clear liquids for now.
[2016-10-16] MEDS: BUDESONIDE/FORMETEROL FUMARATE 80/4.5 mcg INHALER IH SCH (21:41)
[2016-10-17] MEDS: VANCOMYCIN 250 MG/5 ML ORAL SOLUTION PO SCH ×3 (00:08→11:50)
[2016-10-17] MEDS ORDERED: PT OWN MED DRAWER 7, Y5N ONE ×3 (05:04→11:47)
[2016-10-17] MEDS: CYCLOBENZAPRINE HCL 10 MG TABLET (FP) PO SCH ×2 (05:59→14:01)
[2016-10-17] MEDS: QUEtiapine FUMARATE 200 MG TABLET PO SCH (05:59)
[2016-10-17] MEDS: SODIUM CHLORIDE 1,000 ML IV SCH ×2 (07:05→11:50)
[2016-10-17 07:53] LABS: ALBUMIN 2.6 g/dl (3.4-5.0); ANION GAP 9 (8-16); CALCIUM 7.6 mg/dL (8.5-10.1); CO2 21 mmol/L (21-32); CREATININE 0.6 mg/dL (0.55-1.02); GLUCOSE,RANDOM 112 mg/dL (74-106); SGOT/AST 35 U/L (15-37); SGPT/ALT 82 U/L (12-78)
[2016-10-17 07:55] LABS: ALK PHOS 78 U/L (45-117); BILIRUBIN,TOTAL 0.1 mg/dL (0.2-1.0); TOT PROT 5.3 g/dl (6.4-8.2)
[2016-10-17] MEDS: OXYBUTYNIN CHLORIDE 5 MG TABLET PO SCH (09:12)
[2016-10-17] MEDS: GABAPENTIN 300 MG CAPSULE (FP) PO SCH ×2 (09:12→14:01)
[2016-10-17] MEDS: BENZTROPINE MESYLATE 0.5 MG TABLET (FP) PO SCH (09:12)
[2016-10-17] MEDS: FLUTICASONE PROP 0.05% 16 GM NASAL SPRAY NS SCH (09:13)
[2016-10-17] MEDS: BUDESONIDE/FORMETEROL FUMARATE 80/4.5 mcg INHALER IH SCH (09:13)
[2016-10-17] MEDS: PANTOPRAZOLE 40 MG TABLET (FP) PO SCH (09:13)
[2016-10-17] MEDS: MULTIVITAMINS (DAILY MVI) TABLET (FP) PO SCH (09:13)
[2016-10-17] MEDS: ENOXAPARIN NA (PORCINE) 40 MG/0.4 ML DISP.SYRIN SQ SCH (09:14)
[2016-10-17] MEDS: ESCITALOPRAM OXALATE 10 MG TABLET (FP) PO SCH (09:14)
[2016-10-17] MEDS: lamoTRIgine 100 MG TABLET (FP) PO SCH (09:42)
[2016-10-17 09:48] VITALS: BP 111/62; PULSE 82; TEMP 98.1
[2016-10-17] MEDS ORDERED: POTASSIUM CHLORIDE TABS 20 MEQ TABLET.ER (FP) PO ONE (11:15)
--- NOTE | 2016-10-17 13:43 | DS ---
Physical Exam: SUBJECTIVE: Patient seen and examined at bedside. OBJECTIVE: Vital Signs Period Temp Pulse Resp BP Sys/Borrego Pulse Ox Last 24 Hr 97.9 F-99.1 F 78-90 16-20 106-134/62-68 100 PHYSICAL EXAM GENERAL: The patient is awake, alert, and fully oriented, in no acute distress. HEAD: Normal with no signs of trauma. EYES: PERRL, extraocular movements intact, sclera anicteric, conjunctiva clear. LUNGS: Breath sounds equal, clear to auscultation bilaterally, no wheezes, no crackles, no accessory muscle use. HEART: Regular rate and rhythm, S1, S2 without murmur, rub or gallop. ABDOMEN: Soft, nontender, nondistended, normoactive bowel sounds, no guarding, no rebound EXTREMITIES: 2+ pulses, warm, well-perfused, no edema. NEUROLOGICAL: Cranial nerves II through XII grossly intact. Normal speech, gait not observed. Laboratory Results - last 24 hr 10/17/16 06:15 Sodium 144 Potassium 3.4 L Chloride 114 H Carbon Dioxide 21 Anion Gap 9 BUN 3 L D Creatinine 0.6 Creat Clearance w eGFR > 60 Random Glucose 112 H D Calcium 7.6 L Total Bilirubin 0.1 L D AST 35 D ALT 82 H Alkaline Phosphatase 78 Total Protein 5.3 L Albumin 2.6 L HOSPITAL COURSE: Date of Admission:10/15/16 Date of Discharge: 10/17/16 Pre hospital course This is a 36 year old female with PMHx of Crohns Disease, GERD, gastroparesis, c.diff, colitis, interstitial cystitis, diabetes, nephrolithiasis S/P stent placement, bipolar disorder, asthma who was sent to to the ED by GI Dr. Soto for abdominal pain and diarrhea. The patient reports diarrhea began on 10/06 and has become progressively worse. She reports on Sunday she began to vomit bilious substance. She denies any blood in in stool or vomitus. She states for two days she has not been able to keep any solid food down. She reports pain is epigastric that radiates down to her RLQ. She also reports fever of 102.2 last night. She took tylenol but vomited it up. CTAP on 10/12/16 with no evidence of Crohn's disease or acute pathology within the abdomen or pelvis. The patient denies chills, dysuria, frequency, headache, dizziness, chest pain, shortness of breath ER course was notable for: (1) temp 98, HR 110, BP 133/79, resp 20, O2 97% (2) WBC 16.1 (3) Lomotil given Subsequent hospital course by assessment and plan Diarrhea --10/12 CTAP: no acute pathology seen --diarrhea improved, one BM over the past 24 hours --C.diff study: positive for antigen, negative for toxin --treated for two (2) days with PO vanc; discharged with a prescription for flagyl x 5 days --patient has EGD and colon scheduled with Dr. Herzog GERD --continued Protonix Bipolar disorder --stable --continued home medications Asthma --stable --continued Dulera Minutes to complete discharge: 35 Discharge Summary Reason For Visit: DIARRHEA, CROHN'S DISEASE Current Active Problems Crohn's disease (regional enteritis) (Acute) Diarrhea (Acute) Condition: Stable - Instructions Diet, Activity, Other Instructions: [facility] Take this medication as directed. You should follow up with your GI doctor, Dr. Herzog, for your scheduled appointment. Return to the emergency department for any new or worsening symptoms. Appointment with Dr. Chadwick on October 25, 2016 at 3:45pm. Referrals: Behzad Chadwick MD [Primary Care Provider] - Karsten Herzog MD [Staff Physician] - Disposition: HOME - Home Medications Comprehensive Discharge Medication List: Ambulatory Orders Adalimumab [Humira] 40 mg SQ ASDIR 06/23/15 Azelastine HCl [Astepro] 1 - 2 spr NS BID 06/23/15 Calcium 600 mg PO DAILY 06/23/15 Cyclobenzaprine HCl [Flexeril] 10 mg PO TID 06/23/15 Escitalopram Oxalate [Lexapro -] 15 mg PO DAILY 06/23/15 Fluticasone Prop 0.05% Nasal [Flonase -] 1 - 2 spray NS DAILY 06/23/15 Gabapentin [Neurontin] 600 mg PO QID 06/23/15 Mometasone/Formoterol [Dulera 100 Mcg/5 Mcg Inhaler] 2 inh IH BID 06/23/15 Multivitamin [Poly-Vitamin] 1 each PO DAILY 06/23/15 Omeprazole [Prilosec] 40 mg PO HS 06/23/15 Quetiapine Fumarate [Seroquel -] 200 mg PO AM 06/23/15 Quetiapine Fumarate [Seroquel -] 600 mg PO HS 06/23/15 Oxybutynin Chloride [Ditropan -] 5 mg PO DAILY 07/02/15 Atorvastatin Ca [Lipitor] 10 mg PO HS 02/09/16 Lamotrigine [LaMICtal -] 100 mg PO DAILY 05/02/16 Benztropine Mesylate [Cogentin -] 0.5 mg PO DAILY 06/28/16 Pantoprazole Sodium [Protonix] 40 mg PO DAILY #30 tablet. 06/28/16 Metronidazole 500 mg PO TID #15 tablet 10/17/16 This patient is new to me today: Yes Date on this admission: 10/17/16 Emergency Visit: Yes ED Registration Date: 10/15/16 Care time: The patient presented to the Emergency Department on the above date and was hospitalized for further evaluation of their emergent condition. Critical Care patient: No - Discharge Referral Referred to [facility] Yes Physician Referral: Behzad Arriola MD ([facility])
[2016-10-17] MEDS ORDERED: traZODone HCL 150 MG TABLET PO SCH (22:00)
[2016-10-20 00:07] LABS: C-ANCA <1:20 titer (Neg:<1:20); MYELOPEROXIDASE ANTIBODY <9.0 U/mL (0.0-9.0); P-ANCA <1:20 titer (Neg:<1:20); PROTEINASE-3 ANTIBODY <3.5 U/mL (0.0-3.5)
== END 2016-10-17 16:26 | disposition home or self-care (01) | DRG 872 ==
LOC: JER 13:23 → JERBED 16:52 → J8W 19:56
PROVIDERS: ADMIT Internal Medicine; ATTEND Nurse Practitioner Acute Care
DX: A41.9 Sepsis, unspecified organism (principal); A04.7 Enterocolitis due to Clostridium difficile; K50.90 Crohn's disease, unspecified, without complications; K21.9 Gastro-esophageal reflux disease without esophagitis; F31.9 Bipolar disorder, unspecified; J45.909 Unspecified asthma, uncomplicated; M19.90 Unspecified osteoarthritis, unspecified site; M32.9 Systemic lupus erythematosus, unspecified; Z87.442 Personal history of urinary calculi; E11.9 Type 2 diabetes mellitus without complications; D72.829 Elevated white blood cell count, unspecified
CPT/HCPCS: 36415; 74000-TC; 76705-TC; 80053; 81003; 81015; 83520; 83605; 83690; 83735; 84100; 85025; 86256; 86671; 87045; 87046; 87086; 87177; 87205; 87207; 87209; 87324; 87328; 87329; 87449; 93005; 93010; 99284-25

== ENCOUNTER 2016-10-26 21:20 | Emergency (ER) | payer OTHER ==
[2016-10-26 21:30] VITALS: BMI 33.3
[2016-10-26] MEDS ORDERED: SODIUM CHLORIDE 1,000 ML IV STA (21:53)
[2016-10-26] MEDS ORDERED: ONDANSETRON 4 MG/2 ML VIAL IVPB ONE (21:53)
[2016-10-26] MEDS ORDERED: morphine CARPU-JECT 4 MG/1 ML DISP.SYRIN IVPUSH ONE (21:53)
[2016-10-26] MEDS ORDERED: ONDANSETRON 4 MG/2 ML VIAL ONE (22:00)
--- NOTE | 2016-10-26 22:13 | PDOC ---
[id number] 10/26/16 21:26 10/26/16 21:26 10/26/16 21:26 10/26/16 21:26 10/26/16 21:26 ED Treatment Course - LABORATORY CBC & Chemistry Diagram: 10/26/16 22:45 10/26/16 22:45 Medical Decision Making - Medical Decision Making 10/26/16 22:12 agree with care from FORESTRY AIDE Camilo BalbuenaDC/Admit/Observation/Transfer Diagnosis at time of Disposition: Colitis - Discharge Dispostion Disposition: HOME - Prescriptions Prescriptions: Mupirocin Ointment [Bactroban 2% Ointment -] 1 applic TP BID PRN #1 tube PRN Reason: MRSA Clindamycin HCl 300 mg PO Q8H #30 capsule Metronidazole [Flagyl -] 500 mg PO TID #30 tablet Oxycodone HCl/Acetaminophen [Percocet 10-325 mg Tablet] 1 each PO Q6H PRN #20 tablet MDD 4 tabs PRN Reason: Severe Pain Ondansetron [Zofran Odt -] 4 mg SL Q6H PRN #20 od.tablet PRN Reason: Nausea - Referrals Referrals: Behzad Chadwick MD [Primary Care Provider] - - Patient Instructions Printed Discharge Instructions: DI for Antibiotic -- associated Colitis -- C difficile, DI for Colitis Additional Instructions: FOLLOW UP WITH YOUR DOCTOR THIS WEEK. CALL TO SCHEDULE APPOINTMENT. KEEP GI SPECIALIST APPOINTMENT. DRINK LOTS OF FLUIDS. TAKE MEDICATIONS PRESCRIBED. TRY TAKING PROBIOTICS. DO NOT DRIVE, DRINK ALCOHOL, OR OPERATE HEAVY MACHINERY WHILE TAKING PERCOCET. Print Language: COMORAN
[2016-10-26] MEDS ORDERED: morphine CARPU-JECT 4 MG/1 ML DISP.SYRIN ONE (22:26)
--- NOTE | 2016-10-26 22:31 | PDOC ---
History of Present Illness - General Chief Complaint: Nausea/Vomiting Stated Complaint: PAIN Time Seen by Provider: 10/26/16 21:39 History Source: Patient Exam Limitations: No Limitations - History of Present Illness Travel History: No Initial Comments: 10/26/16 22:21 36yo Female patient with a past medical history that includes DM, Crohn's, Lupus , Asthma, GERD, Gastroparesis, Bipolar Disorder, Pancreatitis, Colitis, IBS, MRSA and recent admission for abdominal pain w/ n/v +C-Diff. She presents with c /o fever 102.0 around 1pm today, worsening abd pain w/ poor appetite, nausea/ vomiting "17 times." She reports she was admitted to this hospital last and found to have C-Diff. She is not sure what she was treated with in the hospital with but was discharged home on Flagyl po which she reportedly completed. Patient states last meal: Sunday (soup), last normal BM: Sunday. LNMP: 09/2016- currently on Depo-provera. Has GI follow up with Dr. Herzog scheduled Nov 13. ---After further review of patient chart. Patient had CT-Scan with no abd pathology identified. Treated with Vanco po x 2 days and d/c home on Flagyl. Dr. Saunders (PCP) Dr. Herzog (GI) Timing/Duration: reports: constant, getting worse Quality: reports: moderate Abdominal Pain Onset Location: reports: generalized abdomen Pain Radiation: reports: no radiation Activities at Onset: reports: no specific activity Treatment Prior to Arrive: worse with: analgesics, antacids, cold pack, heat, laxative, enema, other Aggravating Factors: worse with: None, Defecation, Eating, Emotional upset, Exertion, [place], Movement, Voiding, Change in position Alleviating Factors: worse with: None, Belching, Shallow Breathing, Defecation, Eating, Holding Breath, Passing Gas, Change in Position, Rest, Voiding, Vomiting Past History - Travel Traveled outside of the country in the last 30 days: No Close contact w/someone who was outside of country & ill: No - Past Medical History Allergies/Adverse Reactions: Allergies Allergy/AdvReac Type Severity Reaction Status Date / Time metronidazole [From Flagyl] AdvReac Vomiting Verified 10/26/16 21:26 PAPER TAPE Allergy Rash Uncoded 10/26/16 21:26 raw onion Allergy Uncoded 10/26/16 21:26 Home Medications: Ambulatory Orders Adalimumab [Humira] 40 mg SQ ASDIR 06/23/15 Azelastine HCl [Astepro] 1 - 2 spr NS BID 06/23/15 Calcium 600 mg PO DAILY 06/23/15 Cyclobenzaprine HCl [Flexeril] 10 mg PO TID 06/23/15 Escitalopram Oxalate [Lexapro -] 15 mg PO DAILY 06/23/15 Fluticasone Prop 0.05% Nasal [Flonase -] 1 - 2 spray NS DAILY 06/23/15 Gabapentin [Neurontin] 600 mg PO QID 06/23/15 Mometasone/Formoterol [Dulera 100 Mcg/5 Mcg Inhaler] 2 inh IH BID 06/23/15 Multivitamin [Poly-Vitamin] 1 each PO DAILY 06/23/15 Omeprazole [Prilosec] 40 mg PO HS 06/23/15 Quetiapine Fumarate [Seroquel -] 200 mg PO AM 06/23/15 Quetiapine Fumarate [Seroquel -] 600 mg PO HS 06/23/15 Oxybutynin Chloride [Ditropan -] 5 mg PO DAILY 07/02/15 Atorvastatin Ca [Lipitor] 10 mg PO HS 02/09/16 Lamotrigine [LaMICtal -] 100 mg PO DAILY 05/02/16 Benztropine Mesylate [Cogentin -] 0.5 mg PO DAILY 06/28/16 Pantoprazole Sodium [Protonix] 40 mg PO DAILY #30 tablet. 06/28/16 Metronidazole 500 mg PO TID #15 tablet 10/17/16 Clindamycin HCl 300 mg PO Q8H #30 capsule 10/27/16 Mupirocin Ointment [Bactroban 2% Ointment -] 1 applic TP BID PRN #1 tube Ondansetron [Zofran Odt -] 4 mg SL Q6H PRN #20 od.tablet 10/27/16 Oxycodone HCl/Acetaminophen [Percocet 10-325 mg Tablet] 1 each PO Q6H PRN #20 tablet MDD 4 tabs 10/27/16 Anemia: Yes Asthma: Yes Cancer: No Cardiac Disorders: No CVA: No COPD: No CHF: No Dementia: No Diabetes: Yes (NIDDM) GI Disorders: Yes (Crohn's disease, GASTROPARESIS, IBS, GERD) Disorders: Yes (kidney stones, INTERSTITIAL CYSTITIS) HTN: No Hypercholesterolemia: Yes Kidney Stones: Yes Liver Disease: No Psychiatric Problems: Yes (BIPOLAR, SCHIZOPHRENIA) Suicide Attempt (Hx): No Seizures: No Thyroid Disease: No Other medical history: lupus - Surgical History Abdominal Surgery: Yes Appendectomy: No Cardiac Surgery: No Cholecystectomy: Yes Lung Surgery: No Neurologic Surgery: Yes (SPINAL FUSION) Orthopedic Surgery: Yes (spinal fusion 05/2011,L KNEE ARTHROSCOPY) - Immunization History Immunization Up to Date: Yes (FLU AND PNA 05/2012) - Psycho/Social/Smoking Cessation Hx Anxiety: No Suicidal Ideation: No Smoking Status: Yes Smoking History: Current every day smoker Have you smoked in the past 12 months: No Number of Cigarettes Smoked Daily: 3 If you are a former smoker, when did you quit?: 2014 Cigars Per Day: 2 Information on smoking cessation initiated: Yes 'Breaking Loose' booklet given: 10/26/16 Hx Alcohol Use: Yes (SOCIAL) Drug/Substance Use Hx: No Substance Use Type: None Hx Substance Use Treatment: No Abd/GI Specific PMHX - Complaint Specific PMHX Colitis: Yes Diverticulitis: No Gall Bladder Disease: No GERD: Yes Hepatitis: No Irritable Bowel Synd (IBS): Yes Pancreatitis: Yes GI Ulcer Disease: No Review of Systems - Review of Systems Able to Perform ROS?: Yes Is the patient limited Malian proficient: No Constitutional: Yes: Fever. No: Chills Respiratory: No: Cough, Orthopnea, Shortness of Breath, Stridor, Wheezing Cardiac (ROS): No: Chest Pain, Edema, Lightheadedness, Palpitations, Syncope, Chest Tightness ABD/GI: Yes: Diarrhea, Nausea, Poor Appetite, Vomiting, Abdominal cramping. No : Abdominal Distended, Constipated, Difficulty Swallowing, Poor Fluid Intake, Rectal Bleeding, Indigestion, Tarry Stools : No: Burning, Dysuria, Discharge, Frequency, Flank Pain, Hematuria, Pain, Urgency Musculoskeletal: No: Back Pain, Gout, Muscle Weakness Integumentary: No: Bruising, Erythema, Rash, Sweating Neurological: No: Headache, Numbness, Paresthesia, Seizure, Tingling, Tremors, Weakness All Other Systems: Reviewed and Negative *Physical Exam - Vital Signs Last Vital Signs Temp Pulse Resp BP Pulse Ox 98.6 F 92 H 18 141/73 99 10/26/16 21:26 10/26/16 21:26 10/26/16 21:26 10/26/16 21:26 10/26/16 21:26 - Physical Exam Comments: 10/26/16 22:37 Patient tearful during examination. General Appearance: Yes: Nourished, Appropriately Dressed, Mild Distress. No: Apparent Distress, Moderate Distress, Severe Distress Neck: positive: Trachea midline, Supple. negative: Stridor, Lymphadenopathy (R) , Lymphadenopathy (L) Respiratory/Chest: positive: Lungs Clear, Normal Breath Sounds. negative: Respiratory Distress, Accessory Muscle Use, Labored Respiration, Rapid RR, Rhonchi, Stridor, Wheezing Cardiovascular: positive: Regular Rhythm, Regular Rate. negative: Edema, JVD, Murmur Gastrointestinal/Abdominal: positive: Soft, Increased Bowel Sounds, Tenderness ( Lower Abdomen on light and deep palpation.). negative: Distended, Guarding, Rebound, Hernia, Mass Lymphatic: negative: Adenopathy Musculoskeletal: positive: Normal Inspection. negative: CVA Tenderness Extremity: positive: Normal Capillary Refill, Normal Inspection, Normal Range of Motion. negative: Tender, Pedal Edema, Swelling Integumentary: positive: Normal Color, Dry, Warm Neurologic: positive: medical leader II-XII NML intact, Fully Oriented, Alert, Normal Mood/ Affect, Normal Response, Motor Strength 5/5 ED Treatment Course - LABORATORY CBC & Chemistry Diagram: 10/26/16 22:45 10/26/16 22:45 - RADIOLOGY Radiology Studies Ordered: Category Date Time Status ABDOMEN & PELVIS CT WITH CONTR [CT] Stat CT Scan 10/26/16 21:53 Ordered Progress Note - Progress Note Progress Note: Patient c/o abd pain returning 06/26 severity report. Morphine/Reglan/1L NS reordered. Awaiting Ct testing. Report Viewer powered by: PIA Name: Mary Back : 1980 Sex: F Study Date & Time: 10/27/201601:09:28 Description: ABDOMEN & PELVIS CT WITH CONTR Assistant Counsel: (tiffanie) Begin of Report Content Referring Physician: Alexandro Page Patient Name: Nazanin Hernandez THIS IS A PRELIMINARY REPORT FROM IMAGING MACHINE COMPOSITOR IMAGES: [id number] EXAM DATE AND TIME: 2016-10-27 01:09:28.0 EXAM: CT ABDOMEN AND PELVIS WITH CONTRAST Minimal diffuse colon thickening appearing since 10/12/16, possibly colitis. No bowel obstruction, diverticulitis, free fluid or free air. Normal appendix. Unremarkable pancreas and gallbladder. Small umbilical hernia containing fat. Subcentimeter cortical hypodensity left kidney. Surgical changes lumbosacral spine. THIS DOCUMENT HAS BEEN ELECTRONICALLY SIGNED Cheryl Vaz M.D. 10/27/2016 01:57 REHANA Corona Please call Imaging Microsoft Office Instructor [phone] with questions. *DC/Admit/Observation/Transfer Diagnosis at time of Disposition: Colitis - Discharge Dispostion Disposition: HOME Condition at time of disposition: Improved Admit: No - Prescriptions Prescriptions: Mupirocin Ointment [Bactroban 2% Ointment -] 1 applic TP BID PRN #1 tube PRN Reason: MRSA Clindamycin HCl 300 mg PO Q8H #30 capsule Oxycodone HCl/Acetaminophen [Percocet 10-325 mg Tablet] 1 each PO Q6H PRN #20 tablet MDD 4 tabs PRN Reason: Severe Pain Ondansetron [Zofran Odt -] 4 mg SL Q6H PRN #20 od.tablet PRN Reason: Nausea - Patient Instructions Printed Discharge Instructions: DI for Colitis, DI for Antibiotic -- associated Colitis -- C difficile Additional Instructions: FOLLOW UP WITH YOUR DOCTOR THIS WEEK. CALL TO SCHEDULE APPOINTMENT. KEEP GI SPECIALIST APPOINTMENT. DRINK LOTS OF FLUIDS. TAKE MEDICATIONS PRESCRIBED. TRY TAKING PROBIOTICS. DO NOT DRIVE, DRINK ALCOHOL, OR OPERATE HEAVY MACHINERY WHILE TAKING PERCOCET. Print Language: CITIZ[place]
[2016-10-26 22:57] LABS: BASOPHIL 0.5 % (0-2.0); MCH 30.2 pg (25.7-33.7); MCHC 32.8 g/dl (32.0-36.0); MEAN CELL VOLUME 91.8 fl (80-96); MEAN PLT VOLUME 8.2 fl (7.5-11.1); NEUTROPHILS 70.2 % (42.8-82.8); PLATELET COUNT 318 K/MM3 (134-434); RDW 13.4 % (11.6-15.6); WHITE BLOOD COUNT 14.2 K/mm3 (4.0-10.0)
[2016-10-26 23:41] LABS: ANION GAP 12 (8-16); CO2 23 mmol/L (21-32); CREATININE 0.7 mg/dL (0.55-1.02); GLUCOSE,RANDOM 82 mg/dL (74-106); SGPT/ALT 38 U/L (12-78)
[2016-10-26 23:42] LABS: ALK PHOS 90 U/L (45-117); BILIRUBIN,TOTAL 0.4 mg/dL (0.2-1.0); TOT PROT 7.3 g/dl (6.4-8.2)
[2016-10-26 23:46] LABS: SGOT/AST 14 U/L (15-37)
[2016-10-27 00:57] LABS: URINE APPEARANCE CLEAR; URINE BILIRUBIN NEGATIVE (NEGATIVE); URINE BLOOD NEGATIVE (NEGATIVE); URINE COLOR STRAW; URINE GLUCOSE (UA) NEGATIVE (NEGATIVE); URINE KETONE NEGATIVE (NEGATIVE); URINE LEUK ESTERASE NEGATIVE (NEGATIVE); URINE NITRITE NEGATIVE (NEGATIVE); URINE PROTEIN NEGATIVE (NEGATIVE); URINE UROBILINOGEN NEGATIVE E.U./dl (0.2-1.0)
[2016-10-27] MEDS ORDERED: METOCLOPRAMIDE HCL INJECTION 10 MG/2 ML VIAL IVPUSH ONE (01:14)
[2016-10-27] MEDS ORDERED: SODIUM CHLORIDE 1,000 ML IV STA (01:14)
[2016-10-27] MEDS ORDERED: morphine CARPU-JECT 4 MG/1 ML DISP.SYRIN IVPUSH ONE (01:14)
[2016-10-27] MEDS ORDERED: morphine CARPU-JECT 4 MG/1 ML DISP.SYRIN ONE (01:43)
[2016-10-27] MEDS ORDERED: METOCLOPRAMIDE HCL INJECTION 10 MG/2 ML VIAL ONE (01:52)
[2016-10-27] MEDS ORDERED: CLINDAMYCIN 600MG PREMIX IVPB 50 ML IVPB ONE ×2 (02:35→02:40)
[2016-10-27 02:52] VITALS: TEMP 98.1
[2016-10-27 03:24] VITALS: BP 130/73; PULSE 79
[2016-10-27 07:32] LABS: AMYLASE 51 U/L (25-115)
== END 2016-10-27 03:24 | disposition home or self-care (01) ==
LOC: JER 21:20
PROC: 3E03329 Introduction of Other Anti-infective into Peripheral Vein, Percutaneous Approach (ICD-10-PCS; principal; 2016-10-26)
PROC: 3E033GC Introduction of Other Therapeutic Substance into Peripheral Vein, Percutaneous Approach (ICD-10-PCS; 2016-10-26)
PROC: 3E033NZ Introduction of Analgesics, Hypnotics, Sedatives into Peripheral Vein, Percutaneous Approach (ICD-10-PCS; 2016-10-26)
PROC: 3E0337Z Introduction of Electrolytic and Water Balance Substance into Peripheral Vein, Percutaneous Approach (ICD-10-PCS; 2016-10-26)
DX: K52.9 Noninfective gastroenteritis and colitis, unspecified (principal); K21.9 Gastro-esophageal reflux disease without esophagitis; F31.9 Bipolar disorder, unspecified; K85.90 Acute pancreatitis without necrosis or infection, unspecified; Z86.14 Personal history of Methicillin resistant Staphylococcus aureus infection; L93.0 Discoid lupus erythematosus; E11.9 Type 2 diabetes mellitus without complications; J45.909 Unspecified asthma, uncomplicated; E78.00 Pure hypercholesterolemia, unspecified; Z87.442 Personal history of urinary calculi; F17.210 Nicotine dependence, cigarettes, uncomplicated
CPT/HCPCS: 36415; 74177-TC; 80053; 81003; 82150; 83690; 84703; 85025; 87040; 87086; 99283-25

== ENCOUNTER 2017-01-01 17:04 | Emergency (ER) | payer OTHER ==
[2017-01-01 17:08] VITALS: TEMP 101.3; BMI 34.1
--- NOTE | 2017-01-01 17:34 | PDOC ---
History of Present Illness - History of Present Illness Initial Comments: 01/01/17 18:06 The patient is a 36 year old female, with a significant past medical history of DM (diet controlled), Crohns (16 years), Lupus, asthma, GERD, gastroparesis, kidney stones s/p stent placement September 2016), bipolar disorder, pancreatitis , colitis, IBS, MRSA, and +C.Diff, who presents to the emergency department with shortness of breath, pleuritic chest pain, fever and headache since yesterday morning. She states she woke up with shortness of breath yesterday and states she took her albuterol treatment with minimal relief. She reports diffuse chest pain with deep inspiration, which also reproduces a cough. She states she woke up this morning with a raspy voice, but denies throat pain. She reports taking tylenol for her fever since the onset, and states her last tylenol dose was taken at 3PM today. The patient also reports a diffuse headache. The patient states her grandmother is currently an admitted patient in the hospital for pneumonia and reports she spent the entire morning with her yesterday. She denies dizziness. She denies nausea, vomit, diarrhea and constipation. She denies dysuria, frequency, urgency and hematuria. Allergies: metronidazole, paper tape, and raw onion Past surgical history: spinal fusion, cholecystectomy, PCP - Dr. Chadwick Fuel Verification Technician - Dr. Herzog <Tess Go - Last Filed: 01/01/17 18:05> <Ruth Green - Last Filed: 01/01/17 20:47> - General Chief Complaint: Chest Pain Stated Complaint: CHEST PAIN/FEVER Time Seen by Provider: 01/01/17 17:33 Past History <Tess Go - Last Filed: 01/01/17 18:05> - Past Medical History Anemia: Yes Asthma: Yes Cancer: No Cardiac Disorders: No CVA: No COPD: No CHF: No Dementia: No Diabetes: Yes (NIDDM) GI Disorders: Yes (Crohn's disease, GASTROPARESIS, IBS, GERD) Disorders: Yes (kidney stones, INTERSTITIAL CYSTITIS) HTN: No Hypercholesterolemia: Yes Kidney Stones: Yes Liver Disease: No Psychiatric Problems: Yes (BIPOLAR, SCHIZOPHRENIA) Suicide Attempt (Hx): No Seizures: No Thyroid Disease: No - Surgical History Abdominal Surgery: Yes Appendectomy: No Cardiac Surgery: No Cholecystectomy: Yes Lung Surgery: No Neurologic Surgery: Yes (SPINAL FUSION) Orthopedic Surgery: Yes (spinal fusion 05/2011,L KNEE ARTHROSCOPY) - Immunization History Immunization Up to Date: Yes (FLU AND PNA 05/2012) - Psycho/Social/Smoking Cessation Hx Anxiety: No Suicidal Ideation: No Smoking Status: Yes Smoking History: Current every day smoker Have you smoked in the past 12 months: No Number of Cigarettes Smoked Daily: 3 If you are a former smoker, when did you quit?: 2013 Cigars Per Day: 2 Information on smoking cessation initiated: No 'Breaking Loose' booklet given: 10/26/16 Hx Alcohol Use: Yes (SOCIAL) Drug/Substance Use Hx: No Substance Use Type: None Hx Substance Use Treatment: No <Ruth Green - Last Filed: 01/01/17 20:47> - Past Medical History Allergies/Adverse Reactions: Allergies Allergy/AdvReac Type Severity Reaction Status Date / Time metronidazole [From Flagyl] AdvReac Vomiting Verified 01/01/17 17:08 PAPER TAPE Allergy Rash Uncoded 01/01/17 17:08 raw onion Allergy Uncoded 01/01/17 17:08 Home Medications: Ambulatory Orders Adalimumab [Humira] 40 mg SQ ASDIR 06/23/15 Azelastine HCl [Astepro] 1 - 2 spr NS BID 06/23/15 Calcium 600 mg PO DAILY 06/23/15 Cyclobenzaprine HCl [Flexeril] 10 mg PO TID 06/23/15 Escitalopram Oxalate [Lexapro -] 15 mg PO DAILY 06/23/15 Fluticasone Prop 0.05% Nasal [Flonase -] 1 - 2 spray NS DAILY 06/23/15 Gabapentin [Neurontin] 600 mg PO QID 06/23/15 Mometasone/Formoterol [Dulera 100 Mcg/5 Mcg Inhaler] 2 inh IH BID 06/23/15 Multivitamin [Poly-Vitamin] 1 each PO DAILY 06/23/15 Omeprazole [Prilosec] 40 mg PO HS 06/23/15 Quetiapine Fumarate [Seroquel -] 200 mg PO AM 06/23/15 Quetiapine Fumarate [Seroquel -] 600 mg PO HS 06/23/15 Oxybutynin Chloride [Ditropan -] 5 mg PO DAILY 07/02/15 Atorvastatin Ca [Lipitor] 10 mg PO HS 02/09/16 Lamotrigine [LaMICtal -] 100 mg PO DAILY 05/02/16 Benztropine Mesylate [Cogentin -] 0.5 mg PO DAILY 06/28/16 Pantoprazole Sodium [Protonix] 40 mg PO DAILY #30 tablet.dr 06/28/16 Clindamycin HCl 300 mg PO Q8H #30 capsule 10/27/16 Mupirocin Ointment [Bactroban 2% Ointment -] 1 applic TP BID PRN #1 tube Ondansetron [Zofran Odt -] 4 mg SL Q6H PRN #20 od.tablet 10/27/16 Oxycodone HCl/Acetaminophen [Percocet 10-325 mg Tablet] 1 each PO Q6H PRN #20 tablet MDD 4 tabs 10/27/16 Albuterol Sulfate Inhaler - [Ventolin Hfa Inhaler -] 1 puff IH PRN PRN 01/01/17 Review of Systems - Review of Systems Able to Perform ROS?: Yes Comments:: 01/01/17 18:06 CONSTITUTIONAL: (+) fever, chills, Absent: diaphoresis, generalized weakness, malaise, loss of appetite HEENT: (+) laryngitic voice. Absent: rhinorrhea, nasal congestion, throat pain, throat swelling, difficulty swallowing, mouth swelling, ear pain, eye pain, visual Changes CARDIOVASCULAR: (+) pleuritic chest pain, Absent: syncope, palpitations, irregular heart rate, lightheadedness, peripheral edema RESPIRATORY: (+) cough, shortness of breath, Absent: dyspnea with exertion, orthopnea, wheezing, stridor, hemoptysis GASTROINTESTINAL: Absent: abdominal pain, abdominal distension, nausea, vomiting, diarrhea, constipation, melena, hematochezia GENITOURINARY: Absent: dysuria, frequency, urgency, hesitancy, hematuria, flank pain, genital pain MUSCULOSKELETAL: Absent: myalgia, arthralgia, joint swelling SKIN: Absent: rash, itching, pallor HEMATOLOGIC/IMMUNOLOGIC: Absent: easy bleeding, easy bruising, lymphadenopathy, frequent infections ENDOCRINE: Absent: unexplained weight gain, unexplained weight loss, heat intolerance, cold intolerance NEUROLOGIC: (+) headache, Absent: focal weakness or paresthesias, dizziness, unsteady gait, seizure, mental status changes, bladder or bowel incontinence PSYCHIATRIC: Absent: anxiety, depression, suicidal or homicidal ideation, hallucinations. <Tess Go - Last Filed: 01/01/17 18:05> *Physical Exam - Vital Signs Last Vital Signs Temp Pulse Resp BP Pulse Ox 101.3 F H 110 H 18 141/80 98 01/01/17 17:05 01/01/17 17:39 01/01/17 17:05 01/01/17 17:05 01/01/17 17:39 - Physical Exam Comments: 01/01/17 18:07 GENERAL: (+) Febrile. Well developed, well nourished. Awake and alert. No acute distress. HEENT: (+) Oropharynx is erythematous, no signs of exudates. Laryngitic voice. Normocephalic, atraumatic. PERRLA, EOMI. No conjunctival pallor. Sclera are non- icteric. Moist mucous membranes. NECK: Supple. Full ROM. No JVD. Carotid pulses 2+ and symmetric, without bruits. No thyromegaly. No lymphadenopathy. CARDIOVASCULAR: Regular rate and rhythm. No murmurs, rubs, or gallops. Distal pulses are 2+ and symmetric. PULMONARY: (+) Pt is coughing with deep inspiration. No evidence of respiratory distress. Lungs clear to auscultation bilaterally. No wheezing, rales or rhonchi. ABDOMINAL: Soft. Non-tender. Non-distended. No rebound or guarding. No organomegaly. Normoactive bowel sounds. MUSCULOSKELETAL Normal range of motion at all joints. No bony deformities or tenderness. No CVA tenderness. EXTREMITIES: No cyanosis. No clubbing. No edema. No calf tenderness. SKIN: Warm and dry. Normal capillary refill. No rashes. No jaundice. NEUROLOGICAL: Alert, awake, appropriate. Cranial nerves 2-12 intact. Normoreflexic in the upper and lower extremities. Normal speech. Toes are down-going bilaterally. Gait is normal without ataxia. PSYCHIATRIC: Cooperative. Good eye contact. Appropriate mood and affect. <Tess Go - Last Filed: 01/01/17 18:05> - Vital Signs Last Vital Signs Temp Pulse Resp BP Pulse Ox 101.3 F H 118 H 18 141/80 98 01/01/17 17:05 01/01/17 17:05 01/01/17 17:05 01/01/17 17:05 01/01/17 17:05 <Ruth Green - Last Filed: 01/01/17 20:47> ED Treatment Course - LABORATORY CBC & Chemistry Diagram: 01/01/17 17:54 01/01/17 17:54 - ADDITIONAL ORDERS Additional order review: 01/01/17 17:54 RBC 4.24 MCV 89.8 MCHC 33.5 RDW 13.9 MPV 8.1 Neutrophils % 71.8 Lymphocytes % 13.8 D Monocytes % 13.1 H D Eosinophils % 0.5 Basophils % 0.8 <Tess Go - Last Filed: 01/01/17 18:05> - LABORATORY CBC & Chemistry Diagram: 01/01/17 17:54 01/01/17 17:54 <Ruth Green - Last Filed: 01/01/17 20:47> Medical Decision Making - Medical Decision Making 01/01/17 20:39 36 yo female w 1 day of fever and pkleuretic chest pain -lungs no wheezing but her coughing stopped after her resp treatment -cxr no infiltrates -cbc is normal chemistry glu sl elevated,renal ,lft,electrolyses are normal negtaive strep culture pt never hypoxic IMP viral syndrone/ laryngitis/bronchitis <Ruth Green - Last Filed: 01/01/17 20:47> *DC/Admit/Observation/Transfer - Attestations Scribe Attestion: 01/01/17 18:09 Documentation prepared by Tess Go, acting as medical field representative for Ruth Green MD <Tess Go - Last Filed: 01/01/17 18:05> <Ruth Green - Last Filed: 01/01/17 20:47> Diagnosis at time of Disposition: Bronchitis, Laryngitis, Viral infection - Discharge Dispostion Disposition: HOME Condition at time of disposition: Stable - Referrals Referrals: Behzad Chadwick MD [Primary Care Provider] - - Patient Instructions Printed Discharge Instructions: DI for Viral Syndrome, DI for Acute Bronchitis Additional Instructions: please use your inhaler if you develop any wheezing take tylenol for any fever or muscle aches followup with your regular physician return to the emergency department for any worsening symptoms
[2017-01-01] MEDS ORDERED: SODIUM CHLORIDE 0.9% 1000 ML INFUS.BAG IV PRN (17:36)
[2017-01-01 18:01] LABS: BASOPHIL 0.8 % (0-2.0); EOSINOPHIL 0.5 % (0-4.5); MCH 30.1 pg (25.7-33.7); MCHC 33.5 g/dl (32.0-36.0); MEAN CELL VOLUME 89.8 fl (80-96); MEAN PLT VOLUME 8.1 fl (7.5-11.1); NEUTROPHILS 71.8 % (42.8-82.8); PLATELET COUNT 242 K/MM3 (134-434); RDW 13.9 % (11.6-15.6); WHITE BLOOD COUNT 6.3 K/mm3 (4.0-10.0)
[2017-01-01] MEDS ORDERED: ACETAMINOPHEN 500 MG TABLET (FP) PO ONE (18:11)
[2017-01-01 18:23] LABS: ALBUMIN 3.6 g/dl (3.4-5.0); ALK PHOS 74 U/L (45-117); ANION GAP 9 (8-16); BILIRUBIN,TOTAL 0.6 mg/dL (0.2-1.0); CALCIUM 8.3 mg/dL (8.5-10.1); CO2 21 mmol/L (21-32); CREATININE 0.7 mg/dL (0.55-1.02); GLUCOSE,RANDOM 100 mg/dL (74-106); SGOT/AST 14 U/L (15-37); SGPT/ALT 24 U/L (12-78)
[2017-01-01 18:25] LABS: URINE APPEARANCE CLEAR; URINE BILIRUBIN NEGATIVE (NEGATIVE); URINE BLOOD NEGATIVE (NEGATIVE); URINE COLOR STRAW; URINE GLUCOSE (UA) NEGATIVE (NEGATIVE); URINE KETONE NEGATIVE (NEGATIVE); URINE LEUK ESTERASE NEGATIVE (NEGATIVE); URINE NITRITE NEGATIVE (NEGATIVE); URINE PROTEIN NEGATIVE (NEGATIVE); URINE UROBILINOGEN NEGATIVE E.U./dl (0.2-1.0)
[2017-01-01 18:25] LABS: TROPONIN I < 0.02 ng/ml (0.00-0.05)
[2017-01-01] MEDS ORDERED: ACETAMINOPHEN 325 MG TABLET (FP) ONE (18:26)
[2017-01-01] MEDS ORDERED: ALBUTEROL SO4 2.5/IPRATROPIUM 0.5 INH SOL 3 ML VIAL.NEB. NEB ONE ×2 (18:57→18:58)
[2017-01-01 19:05] LABS: VENOUS BLOOD GAS HCO3 20.4 meq/L (19-25); VENOUS PH 7.43 (7.32-7.42)
--- NOTE | 2017-01-04 12:30 | EKG ---
Test Reason : Blood Pressure : / mmHG Vent. Rate : 110 BPM Atrial Rate : 110 BPM P-R Int : 174 ms QRS Dur : 068 ms QT Int : 304 ms P-R-T Axes : 065 052 018 degrees QTc Int : 411 ms SINUS TACHYCARDIA NONSPECIFIC T WAVE ABNORMALITY ABNORMAL ECG WHEN COMPARED WITH ECG OF 15-OCT-2016 19:00, NO SIGNIFICANT CHANGE WAS FOUND Confirmed by BRAIN FELICIANO MD ([id number]) on 01/04/2017 12:30:24 PM Referred By: Confirmed By:BRAIN FELICIANO MD
[2017-01-06 09:40] VITALS: BP 136/76; PULSE 92
== END 2017-01-01 20:56 | disposition home or self-care (01) ==
LOC: JER 17:04
PROC: 3E0F7GC Introduction of Other Therapeutic Substance into Respiratory Tract, Via Natural or Artificial Opening (ICD-10-PCS; principal; 2017-01-01)
DX: J40 Bronchitis, not specified as acute or chronic (principal); J37.0 Chronic laryngitis; B97.89 Other viral agents as the cause of diseases classified elsewhere; E11.9 Type 2 diabetes mellitus without complications; J45.909 Unspecified asthma, uncomplicated; K50.90 Crohn's disease, unspecified, without complications; F31.9 Bipolar disorder, unspecified; F20.9 Schizophrenia, unspecified
CPT/HCPCS: 36415; 71020-TC; 80053; 81003; 82550; 82803; 83605; 84484; 84703; 85025; 86850; 86900; 86901; 87040; 87070; 87086; 87430; 93005; 93010; 99285-25

== ENCOUNTER 2017-03-29 21:00 | Emergency (ER) | payer OTHER ==
[2017-03-29 21:12] VITALS: BP 152/108; PULSE 91; TEMP 98.5; BMI 33.6
[2017-03-29] MEDS ORDERED: methylPREDNISolone NA SUCC 125 MG/2 ML VIAL IVPB ONE (21:24)
[2017-03-29] MEDS ORDERED: METRONIDAZOLE 500 MG PREMIXED 100 ML IVPB ONE ×2 (21:24→21:54)
[2017-03-29] MEDS ORDERED: SODIUM CHLORIDE 1,000 ML IV STA (21:25)
--- NOTE | 2017-03-29 21:26 | PDOC ---
History of Present Illness - General History Source: Patient Exam Limitations: No Limitations - History of Present Illness Initial Comments: 03/29/17 22:16 The patient is a 37-year-old female, with a significant past medical history of DM (diet controlled), Crohns (16 years), Lupus, asthma, GERD, gastroparesis, kidney stones, who presents to the ED with exacerbation of her Crohns. Pt states that she prepares for a flare up by staying hydrated and taking bentyl. Pt reports to the ED because she has developed diarrhea accompanied by worsening abdominal pain and abdominal distention. She reports nausea but no vomiting. Her periods are very well controlled and she is on control. The patient denies any fever. She denies any urinary complaints. Pt denies any recent travel. Allergies: Pt does report having an adverse side effect to flagyl, however she is treated for her diarrhea with flagyl, but is given benadryl and steroids to prevent any reaction. <Irma Mora - Last Filed: 03/29/17 22:21> - General History Source: Patient <Christian Maddox - Last Filed: 03/30/17 00:01> - General Chief Complaint: Pain Stated Complaint: ABD PAIN Time Seen by Provider: 03/29/17 21:18 Past History <Irma Mora - Last Filed: 03/29/17 22:21> - Past Medical History Anemia: Yes Asthma: Yes Cancer: No Cardiac Disorders: No CVA: No COPD: No CHF: No Dementia: No Diabetes: Yes (NIDDM) GI Disorders: Yes (Crohn's disease, GASTROPARESIS, IBS, GERD) Disorders: Yes (kidney stones, INTERSTITIAL CYSTITIS) HTN: No Hypercholesterolemia: Yes Kidney Stones: Yes Liver Disease: No Psychiatric Problems: Yes (BIPOLAR, SCHIZOPHRENIA) Suicide Attempt (Hx): No Seizures: No Thyroid Disease: No - Surgical History Abdominal Surgery: Yes Appendectomy: No Cardiac Surgery: No Cholecystectomy: Yes Lung Surgery: No Neurologic Surgery: Yes (SPINAL FUSION) Orthopedic Surgery: Yes (spinal fusion 05/2011,L KNEE ARTHROSCOPY) - Immunization History Immunization Up to Date: Yes (FLU AND PNA 05/2012) - Psycho/Social/Smoking Cessation Hx Anxiety: No Suicidal Ideation: No Smoking Status: Yes Smoking History: Former smoker Have you smoked in the past 12 months: Yes Number of Cigarettes Smoked Daily: 3 If you are a former smoker, when did you quit?: 3 weeks ago Cigars Per Day: 2 Information on smoking cessation initiated: No 'Breaking Loose' booklet given: 10/26/16 Hx Alcohol Use: Yes (SOCIAL) Drug/Substance Use Hx: No Substance Use Type: None Hx Substance Use Treatment: No <Christian Maddox - Last Filed: 03/30/17 00:01> - Past Medical History Allergies/Adverse Reactions: Allergies Allergy/AdvReac Type Severity Reaction Status Date / Time metronidazole [From Flagyl] AdvReac Vomiting Verified 01/01/17 17:08 PAPER TAPE Allergy Rash Uncoded 01/01/17 17:08 raw onion Allergy Uncoded 01/01/17 17:08 Home Medications: Ambulatory Orders Adalimumab [Humira] 40 mg SQ ASDIR 06/23/15 Azelastine HCl [Astepro] 1 - 2 spr NS BID 06/23/15 Calcium 600 mg PO DAILY 06/23/15 Cyclobenzaprine HCl [Flexeril] 10 mg PO TID 06/23/15 Escitalopram Oxalate [Lexapro -] 15 mg PO DAILY 06/23/15 Fluticasone Prop 0.05% Nasal [Flonase -] 1 - 2 spray NS DAILY 06/23/15 Gabapentin [Neurontin] 600 mg PO QID 06/23/15 Mometasone/Formoterol [Dulera 100 Mcg/5 Mcg Inhaler] 2 inh IH BID 06/23/15 Multivitamin [Poly-Vitamin] 1 each PO DAILY 06/23/15 Omeprazole [Prilosec] 40 mg PO HS 06/23/15 Quetiapine Fumarate [Seroquel -] 200 mg PO AM 06/23/15 Quetiapine Fumarate [Seroquel -] 600 mg PO HS 06/23/15 Oxybutynin Chloride [Ditropan -] 5 mg PO DAILY 07/02/15 Atorvastatin Ca [Lipitor] 10 mg PO HS 02/09/16 Lamotrigine [LaMICtal -] 100 mg PO DAILY 05/02/16 Benztropine Mesylate [Cogentin -] 0.5 mg PO DAILY 06/28/16 Albuterol Sulfate Inhaler - [Ventolin Hfa Inhaler -] 1 puff IH PRN PRN 01/01/17 Vitamin B Complex [B Complex] 1 each PO DAILY 01/31/17 Diphenhydramine HCl [Benadryl Capsules -] 25 mg PO TID #20 capsule 03/29/17 Methylprednisolone [Medrol Dose Carlos Manuel] 4 mg PO ASDIR #21 tablet 03/29/17 Metronidazole [Flagyl] 500 mg PO BID #14 tablet 03/29/17 Oxycodone HCl/Acetaminophen [Percocet 5-325 mg Tablet] 1 - 2 tab PO Q6H #20 tablet MDD 4 03/29/17 Review of Systems - Review of Systems Able to Perform ROS?: Yes Comments:: 03/29/17 22:18 CONSTITUTIONAL: Absent: fever, chills, diaphoresis, generalized weakness, malaise, loss of appetite HEENT: Absent: rhinorrhea, nasal congestion, throat pain, throat swelling, difficulty swallowing, mouth swelling, ear pain, eye pain, visual Changes CARDIOVASCULAR: Absent: chest pain, syncope, palpitations, irregular heart rate, lightheadedness , peripheral edema RESPIRATORY: Absent: cough, shortness of breath, dyspnea with exertion, orthopnea, wheezing, stridor, hemoptysis GASTROINTESTINAL: Present: abdominal pain, abdominal distension, nausea, diarrhea Absent: vomiting, constipation, melena, hematochezia GENITOURINARY: Absent: dysuria, frequency, urgency, hesitancy, hematuria, flank pain, genital pain MUSCULOSKELETAL: Absent: myalgia, arthralgia, joint swelling SKIN: Absent: rash, itching, pallor HEMATOLOGIC/IMMUNOLOGIC: Absent: easy bleeding, easy bruising, lymphadenopathy, frequent infections ENDOCRINE: Absent: unexplained weight gain, unexplained weight loss, heat intolerance, cold intolerance NEUROLOGIC: Absent: headache, focal weakness or paresthesias, dizziness, unsteady gait, seizure, mental status changes, bladder or bowel incontinence PSYCHIATRIC: Absent: anxiety, depression, suicidal or homicidal ideation, hallucinations. <Irma Mora - Last Filed: 03/29/17 22:21> *Physical Exam - Vital Signs Last Vital Signs Temp Pulse Resp BP Pulse Ox 98.5 F 91 H 20 152/108 100 03/29/17 21:10 03/29/17 21:10 03/29/17 21:10 03/29/17 21:10 03/29/17 21:10 - Physical Exam Comments: 03/29/17 22:19 Well developed, well nourished. Awake and alert. No acute distress. HEENT: Normocephalic, atraumatic. PERRLA, EOMI. No conjunctival pallor. Sclera are non- icteric. Moist mucous membranes. Oropharynx is clear. NECK: Supple. Full ROM. No JVD. Carotid pulses 2+ and symmetric, without bruits. No thyromegaly. No lymphadenopathy. CARDIOVASCULAR: Regular rate and rhythm. No murmurs, rubs, or gallops. Distal pulses are 2+ and symmetric. PULMONARY: No evidence of respiratory distress. Lungs clear to auscultation bilaterally. No wheezing, rales or rhonchi. ABDOMINAL: Soft. No rebound or guarding. No organomegaly. Normoactive bowel sounds. + Abdomen appears distended, tenderness to right side of abdomen (upper and lower region). MUSCULOSKELETAL Normal range of motion at all joints. No bony deformities or tenderness. No CVA tenderness. EXTREMITIES: No cyanosis. No clubbing. No edema. No calf tenderness. SKIN: Warm and dry. Normal capillary refill. No rashes. No jaundice. NEUROLOGICAL: Alert, awake, appropriate. PSYCHIATRIC: Cooperative. Good eye contact. Appropriate mood and affect. <Irma Mora - Last Filed: 03/29/17 22:21> - Vital Signs Last Vital Signs Temp Pulse Resp BP Pulse Ox 98.5 F 91 H 20 152/108 100 03/29/17 21:10 03/29/17 21:10 03/29/17 21:10 03/29/17 21:10 03/29/17 21:10 <Christian Maddox - Last Filed: 03/30/17 00:01> ED Treatment Course - LABORATORY CBC & Chemistry Diagram: 03/29/17 21:50 03/29/17 21:50 - ADDITIONAL ORDERS Additional order review: 03/29/17 21:50 RBC 4.40 MCV 91.9 MCHC 32.6 RDW 14.3 MPV 8.9 Neutrophils % 56.9 D Lymphocytes % 35.2 D Monocytes % 5.4 Eosinophils % 1.5 D Basophils % 1.0 - Medications Given in the ED: ED Medications Discontinued Medications Generic Name Dose Route Start Last Admin Trade Name Freq PRN Reason Stop Dose Admin Diphenhydramine HCl 25 mg 03/29/17 21:24 03/29/17 21:51 Benadryl Injection - IVPB 03/29/17 21:25 25 mg ONCE ONE Administration Methylprednisolone Sodium Succinate 125 mg 03/29/17 21:24 03/29/17 21:52 Solu-Medrol - IVPB 03/29/17 21:25 125 mg ONCE ONE Administration <Irma Mora - Last Filed: 03/29/17 22:21> - LABORATORY CBC & Chemistry Diagram: 03/29/17 21:50 03/29/17 21:50 <Christian Maddox - Last Filed: 03/30/17 00:01> Medical Decision Making - Medical Decision Making 03/30/17 00:00 Dr. Maddox: The scribe's documentation has been prepared under my direction and personally reviewed by me in its entirery. I confirm that the note above accurately reflects all work, treatment, procedures, and medical decision making performed by me. Pt feels better. not having any pain at this time. Pt to be discharged and follow up with her GI doctor. <Christian Maddox - Last Filed: 03/30/17 00:01> *DC/Admit/Observation/Transfer - Attestations Scribe Attestion: 03/29/17 22:21 Documentation prepared by Irma Mora, acting as medical equipment technician for Christian Maddox MD. <Irma Mora - Last Filed: 03/29/17 22:21> - Discharge Dispostion Admit: No <Christian Maddox - Last Filed: 03/30/17 00:01> Diagnosis at time of Disposition: Colitis, Abdominal pain - Discharge Dispostion Disposition: HOME Condition at time of disposition: Improved - Prescriptions Prescriptions: Diphenhydramine HCl [Benadryl Capsules -] 25 mg PO TID #20 capsule Metronidazole [Flagyl] 500 mg PO BID #14 tablet Methylprednisolone [Medrol Dose Carlos Manuel] 4 mg PO ASDIR #21 tablet Oxycodone HCl/Acetaminophen [Percocet 5-325 mg Tablet] 1 - 2 tab PO Q6H #20 tablet MDD 4 - Referrals Referrals: Behzad Chadwick MD [Primary Care Provider] - Karsten Herzog MD [Staff Physician] -
[2017-03-29] MEDS ORDERED: ONDANSETRON 4 MG/2 ML VIAL IVPUSH STA (21:53)
[2017-03-29] MEDS ORDERED: methylPREDNISolone NA SUCC 125 MG/2 ML VIAL ONE (21:54)
[2017-03-29] MEDS ORDERED: ONDANSETRON 4 MG/2 ML VIAL ONE ×2 (21:54→21:55)
[2017-03-29] MEDS ORDERED: morphine CARPU-JECT 2 MG/1 ML DISP.SYRIN IVPUSH ONE ×2 (22:04→22:52)
[2017-03-29 22:09] LABS: EOSINOPHIL 1.5 % (0-4.5); MCHC 32.6 g/dl (32.0-36.0); MEAN CELL VOLUME 91.9 fl (80-96); MEAN PLT VOLUME 8.9 fl (7.5-11.1); NEUTROPHILS 56.9 % (42.8-82.8); PLATELET COUNT 273 K/MM3 (134-434); RDW 14.3 % (11.6-15.6); WHITE BLOOD COUNT 11.3 K/mm3 (4.0-10.0)
[2017-03-29 22:14] LABS: URINE APPEARANCE CLEAR; URINE BILIRUBIN NEGATIVE (NEGATIVE); URINE BLOOD NEGATIVE (NEGATIVE); URINE COLOR YELLOW; URINE GLUCOSE (UA) NEGATIVE (NEGATIVE); URINE KETONE NEGATIVE (NEGATIVE); URINE LEUK ESTERASE NEGATIVE (NEGATIVE); URINE NITRITE NEGATIVE (NEGATIVE); URINE PROTEIN NEGATIVE (NEGATIVE); URINE UROBILINOGEN NEGATIVE mg/dL (0.2-1.0)
[2017-03-29] MEDS ORDERED: morphine CARPU-JECT 4 MG/1 ML DISP.SYRIN ONE ×2 (22:22→23:05)
[2017-03-29 22:33] LABS: ALBUMIN 3.9 g/dl (3.4-5.0); AMYLASE 82 U/L (25-115); ANION GAP 9 (8-16); BILIRUBIN,TOTAL 0.2 mg/dL (0.2-1.0); CALCIUM 9.1 mg/dL (8.5-10.1); CO2 27 mmol/L (21-32); CREATININE 0.9 mg/dL (0.55-1.02); GLUCOSE,RANDOM 87 mg/dL (74-106); SGOT/AST 16 U/L (15-37); SGPT/ALT 20 U/L (12-78); TOT PROT 7.5 g/dl (6.4-8.2)
[2017-03-29 22:34] LABS: ALK PHOS 75 U/L (45-117)
[2017-03-29] MEDS ORDERED: morphine CARPU-JECT 2 MG/1 ML DISP.SYRIN ONE (23:04)
== END 2017-03-30 00:20 | disposition home or self-care (01) ==
LOC: JER 21:00
PROC: 3E0337Z Introduction of Electrolytic and Water Balance Substance into Peripheral Vein, Percutaneous Approach (ICD-10-PCS; principal; 2017-03-29)
PROC: 3E03329 Introduction of Other Anti-infective into Peripheral Vein, Percutaneous Approach (ICD-10-PCS; 2017-03-29)
PROC: 3E033GC Introduction of Other Therapeutic Substance into Peripheral Vein, Percutaneous Approach (ICD-10-PCS; 2017-03-29)
PROC: 3E033NZ Introduction of Analgesics, Hypnotics, Sedatives into Peripheral Vein, Percutaneous Approach (ICD-10-PCS; 2017-03-29)
PROC: 3E0333Z Introduction of Anti-inflammatory into Peripheral Vein, Percutaneous Approach (ICD-10-PCS; 2017-03-29)
DX: K52.9 Noninfective gastroenteritis and colitis, unspecified (principal); Z87.19 Personal history of other diseases of the digestive system; Z87.898 Personal history of other specified conditions; E11.9 Type 2 diabetes mellitus without complications; K21.9 Gastro-esophageal reflux disease without esophagitis; J45.909 Unspecified asthma, uncomplicated
CPT/HCPCS: 36415; 80053; 81003; 82150; 83690; 84703; 85025; 85610; 87040; 99282-25

== ENCOUNTER 2017-04-09 17:43 | Emergency (ER) | payer OTHER ==
[2017-04-09 18:03] VITALS: BP 121/69; PULSE 95; TEMP 99.1; BMI 32.9
--- NOTE | 2017-04-09 18:33 | PDOC ---
History of Present Illness - General Chief Complaint: Pain, Acute Stated Complaint: ABDOMINAL PAIN/DIARRHEA Time Seen by Provider: 04/09/17 18:29 History Source: Patient Exam Limitations: No Limitations - History of Present Illness Initial Comments: 04/09/17 18:32 CHIEF COMPLAINT: Diarrhea HISTORY OF PRESENT ILLNESS: This is a 37 year old female with a history of Crohn 's disease, lupus, asthma, GERD, gastroparesis, nephrolithiasis, and diet- controlled DM. In September of this year, she was C diff antigen (but pos toxin neg) and was treated with a course of Flagyl. She was seen here on 03/29 for abdominal pain and diarrhea and was treated empirically with Flagyl. Of note, she is allergic to Flagyl and takes it with Benadryl/prednisone. She has now completed the course of antibiotics, but reports that her symptoms are worsening. She states that she had more than 25 episodes of watery diarrhea today, as well as some trace blood. She states that the diarrhea "smells like c diff." She has cramping epigastric and right-sided abdominal pain. She denies fevers/chills. She has had some nausea. She denies recent travel, hospitalization, antibiotic use, and sick contacts. She states that these symptoms are not consistent with her prior Crohn's flares. PCP: Dr. Chadwick GI: Dr. Herzog REVIEW OF SYSTEMS: GENERAL/CONSTITUTIONAL: No fever or chills. No weakness. No weight change. HEAD, EYES, EARS, NOSE AND THROAT: No change in vision. No ear pain or discharge. No sore throat. CARDIOVASCULAR: No chest pain or palpitations. RESPIRATORY: No cough, wheezing, or shortness of breath. GASTROINTESTINAL: See HPI. GENITOURINARY: No dysuria, frequency, or change in urination. MUSCULOSKELETAL: No joint or muscle swelling or pain. No neck or back pain. SKIN: No rash or easy bruising. NEUROLOGIC: No headache, vertigo, loss of consciousness, or loss of sensation. PSYCHIATRIC: No depression or anxiety. ENDOCRINE: No increased thirst. No abnormal weight change. HEMATOLOGIC/LYMPHATIC: No anemia, easy bleeding, or history of blood clots. ALLERGIC/IMMUNOLOGIC: No hives or skin allergy. No latex allergy. PHYSICAL EXAM: GENERAL: The patient is awake, alert, and fully oriented, in no acute distress. HEAD: Normal with no signs of trauma. ENT: Pupils equal, round and reactive to light, extraocular movements intact, sclera anicteric, conjunctiva clear. Neck supple. LUNGS: Clear to auscultation bilaterally. Normal excursion. No respiratory distress or use of accessory muscles. CV: RRR, S1/S2, no MRG. Cap refill < 2 sec. ABDOMEN: Soft, obese, tender to deep palpation in epigastrium, RUQ, and RLQ. EXTREMITIES: Normal range of motion, no edema. NEUROLOGICAL: Normal speech, normal gait. CN II-XII grossly intact. PSYCH: Normal mood, normal affect. SKIN: Warm, dry, normal turgor, no rashes or lesions noted. Past History - Past Medical History Allergies/Adverse Reactions: Allergies Allergy/AdvReac Type Severity Reaction Status Date / Time metronidazole [From Flagyl] AdvReac Vomiting Verified 04/09/17 18:00 PAPER TAPE Allergy Rash Uncoded 04/09/17 18:00 raw onion Allergy Uncoded 04/09/17 18:00 Home Medications: Ambulatory Orders Adalimumab [Humira] 40 mg SQ ASDIR 06/23/15 Azelastine HCl [Astepro] 1 - 2 spr NS BID 06/23/15 Calcium 600 mg PO DAILY 06/23/15 Cyclobenzaprine HCl [Flexeril] 10 mg PO TID 06/23/15 Escitalopram Oxalate [Lexapro -] 15 mg PO DAILY 06/23/15 Fluticasone Prop 0.05% Nasal [Flonase -] 1 - 2 spray NS DAILY 06/23/15 Gabapentin [Neurontin] 600 mg PO QID 06/23/15 Mometasone/Formoterol [Dulera 100 Mcg/5 Mcg Inhaler] 2 inh IH BID 06/23/15 Multivitamin [Poly-Vitamin] 1 each PO DAILY 06/23/15 Omeprazole [Prilosec] 40 mg PO HS 06/23/15 Quetiapine Fumarate [Seroquel -] 200 mg PO AM 06/23/15 Quetiapine Fumarate [Seroquel -] 600 mg PO HS 06/23/15 Oxybutynin Chloride [Ditropan -] 5 mg PO DAILY 07/02/15 Atorvastatin Ca [Lipitor] 10 mg PO HS 02/09/16 Lamotrigine [LaMICtal -] 100 mg PO DAILY 05/02/16 Benztropine Mesylate [Cogentin -] 0.5 mg PO DAILY 06/28/16 Albuterol Sulfate Inhaler - [Ventolin Hfa Inhaler -] 1 puff IH PRN PRN 01/01/17 Vitamin B Complex [B Complex] 1 each PO DAILY 01/31/17 Diphenhydramine HCl [Benadryl Capsules -] 25 mg PO TID #20 capsule 03/29/17 Methylprednisolone [Medrol Dose Carlos Manuel] 4 mg PO ASDIR #21 tablet 03/29/17 Metronidazole [Flagyl] 500 mg PO BID #14 tablet 03/29/17 Oxycodone HCl/Acetaminophen [Percocet 5-325 mg Tablet] 1 - 2 tab PO Q6H #20 tablet MDD 4 03/29/17 Anemia: Yes Asthma: Yes Cancer: No Cardiac Disorders: No CVA: No COPD: No CHF: No Dementia: No Diabetes: Yes (NIDDM) GI Disorders: Yes (Crohn's disease, GASTROPARESIS, IBS, GERD) Disorders: Yes (kidney stones, INTERSTITIAL CYSTITIS) HTN: No Hypercholesterolemia: Yes Kidney Stones: Yes Liver Disease: No Psychiatric Problems: Yes (BIPOLAR, SCHIZOPHRENIA) Suicide Attempt (Hx): No Seizures: No Thyroid Disease: No - Surgical History Abdominal Surgery: Yes Appendectomy: No Cardiac Surgery: No Cholecystectomy: Yes Lung Surgery: No Neurologic Surgery: Yes (SPINAL FUSION) Orthopedic Surgery: Yes (spinal fusion 05/2011,L KNEE ARTHROSCOPY) - Immunization History Immunization Up to Date: Yes (FLU AND PNA 05/2012) - Psycho/Social/Smoking Cessation Hx Anxiety: No Suicidal Ideation: No Smoking Status: Yes Smoking History: Current some day smoker Have you smoked in the past 12 months: Yes Number of Cigarettes Smoked Daily: 3 If you are a former smoker, when did you quit?: 3 weeks ago Cigars Per Day: 2 Information on smoking cessation initiated: No 'Breaking Loose' booklet given: 10/26/16 Hx Alcohol Use: Yes (SOCIAL) Drug/Substance Use Hx: No Substance Use Type: None Hx Substance Use Treatment: No *Physical Exam - Vital Signs Last Vital Signs Temp Pulse Resp BP Pulse Ox 99.1 F 95 H 19 121/69 100 04/09/17 18:00 04/09/17 18:00 04/09/17 18:00 04/09/17 18:00 04/09/17 18:00 Medical Decision Making - Medical Decision Making 04/09/17 18:51 A/P: 37 year old female with relevant history of Crohn's disease and c diff colitis presenting with abdominal pain and diarrhea, worsening despite course of po Flagyl as outpatient. 1. Labs including CBC, comp, lipase, UA, urine 2. Stool for C diff 3. CTAP with PO/IV contrast 4. IV hydration 5. Re-evaluate, discuss with GI
[2017-04-09] MEDS ORDERED: SODIUM CHLORIDE 1,000 ML IV STA (18:39)
[2017-04-09] MEDS ORDERED: ONDANSETRON 4 MG/2 ML VIAL IVPUSH ONE (19:04)
[2017-04-09] MEDS ORDERED: morphine CARPU-JECT 4 MG/1 ML DISP.SYRIN IVPUSH ONE ×2 (19:04→22:31)
[2017-04-09 19:10] LABS: BASOPHIL 0.5 % (0-2.0); EOSINOPHIL 1.7 % (0-4.5); MCH 30.3 pg (25.7-33.7); MCHC 32.8 g/dl (32.0-36.0); MEAN CELL VOLUME 92.4 fl (80-96); MEAN PLT VOLUME 8.3 fl (7.5-11.1); NEUTROPHILS 53.1 % (42.8-82.8); PLATELET COUNT 271 K/MM3 (134-434); RDW 14.3 % (11.6-15.6); WHITE BLOOD COUNT 8.4 K/mm3 (4.0-10.0)
[2017-04-09] MEDS ORDERED: morphine CARPU-JECT 4 MG/1 ML DISP.SYRIN ONE ×2 (19:12→22:39)
[2017-04-09 19:13] LABS: URINE APPEARANCE CLEAR; URINE BILIRUBIN NEGATIVE (NEGATIVE); URINE BLOOD 1+ (NEGATIVE); URINE COLOR COLORLESS; URINE GLUCOSE (UA) NEGATIVE (NEGATIVE); URINE KETONE NEGATIVE (NEGATIVE); URINE LEUK ESTERASE NEGATIVE (NEGATIVE); URINE NITRITE NEGATIVE (NEGATIVE); URINE PROTEIN NEGATIVE (NEGATIVE); URINE UROBILINOGEN NEGATIVE mg/dL (0.2-1.0)
[2017-04-09 19:46] LABS: ALBUMIN 3.8 g/dl (3.4-5.0); ALK PHOS 82 U/L (45-117); ANION GAP 5 (8-16); BILIRUBIN,TOTAL 0.1 mg/dL (0.2-1.0); CALCIUM 9.1 mg/dL (8.5-10.1); CO2 27 mmol/L (21-32); CREATININE 0.7 mg/dL (0.55-1.02); GLUCOSE,RANDOM 83 mg/dL (74-106); MAGNESIUM 2.6 mg/dL (1.8-2.4); SGOT/AST 21 U/L (15-37); SGPT/ALT 29 U/L (12-78); TOT PROT 7.1 g/dl (6.4-8.2)
[2017-04-09 20:22] LABS: URINE BACTERIA RARE /hpf (NONE SEEN); URINE RBC 1 /hpf (0-3); URINE WBC 2 /hpf (3-5)
--- NOTE | 2017-04-09 22:50 | PDOC ---
*Physical Exam - Vital Signs Last Vital Signs Temp Pulse Resp BP Pulse Ox 99.1 F 95 H 19 121/69 100 04/09/17 18:00 04/09/17 18:00 04/09/17 18:00 04/09/17 18:00 04/09/17 18:00 ED Treatment Course - LABORATORY CBC & Chemistry Diagram: 04/09/17 18:47 04/09/17 18:47 - ADDITIONAL ORDERS Additional order review: Laboratory Results 04/09/17 04/09/17 18:47 18:47 Sodium 141 Potassium 4.1 Chloride 109 H Carbon Dioxide 27 Anion Gap 5 L BUN 3 L D Creatinine 0.7 D Creat Clearance w eGFR > 60 Random Glucose 83 Calcium 9.1 Magnesium 2.6 H Total Bilirubin 0.1 L D AST 21 D ALT 29 D Alkaline Phosphatase 82 Total Protein 7.1 Albumin 3.8 Lipase 143 Urine Color Colorless Urine Appearance Clear Urine pH 8.0 Ur Specific [place] 1.010 Urine Protein Negative Urine Glucose (UA) Negative Urine Ketones Negative Urine Blood 1+ H Urine Nitrite Negative Urine Bilirubin Negative Urine Urobilinogen Negative Ur Leukocyte Esterase Negative Urine RBC 1 Urine WBC 2 Ur Epithelial Cells Rare Urine Bacteria Rare Urine HCG, Qual Negative 04/09/17 18:47 RBC 4.47 MCV 92.4 MCHC 32.8 RDW 14.3 MPV 8.3 Neutrophils % 53.1 Lymphocytes % 38.8 Monocytes % 5.9 Eosinophils % 1.7 Basophils % 0.5 - Medications Given in the ED: ED Medications Discontinued Medications Generic Name Dose Route Start Last Admin Trade Name Freq PRN Reason Stop Dose Admin Sodium Chloride 1,000 mls @ 1,000 mls/hr 04/09/17 18:39 04/09/17 19:17 Normal Saline - IV 04/09/17 19:38 1,000 mls/hr ASDIR STA Administration Morphine Sulfate 4 mg 04/09/17 19:04 04/09/17 19:17 Morphine Injection - IVPUSH 04/09/17 19:05 4 mg ONCE ONE Administration Morphine Sulfate 4 mg 04/09/17 22:31 04/09/17 22:43 Morphine Injection - IVPUSH 04/09/17 22:32 4 mg ONCE ONE Administration Ondansetron HCl 4 mg 04/09/17 19:04 04/09/17 19:17 Zofran Injection IVPUSH 04/09/17 19:05 4 mg ONCE ONE Administration Progress Note - Progress Note Progress Note: A/P: Received pt from [facility]. CT scan completed with no signs of colitis. Dilated biliary tree without obvious obstruction. Lipase- 143. LFT's WNL. She reports approximately 27 episodes of watery diarrhea today. Taking Flagyl at home with minimal response. - Vanco 125 po qid - d/c home - Tylenol for pain prn - f/u with Dr. Herzog as outpatient *DC/Admit/Observation/Transfer Diagnosis at time of Disposition: Colitis - Discharge Dispostion Disposition: HOME Condition at time of disposition: Stable Admit: No - Prescriptions Prescriptions: Vancomycin HCl 125 mg PO QID #40 capsule - Referrals Referrals: Behzad Chadwick MD [Primary Care Provider] - Karsten Herzog MD [Staff Physician] - - Patient Instructions Printed Discharge Instructions: DI for Colitis Additional Instructions: Call Dr. Herzog for appointment within 1 week. Take Vancomycin as prescibed. Drink plenty of fluids. Eat a well balanced diet. Return to ER for any concerns.
== END 2017-04-09 23:50 | disposition home or self-care (01) ==
LOC: JER 17:43
PROC: 3E033NZ Introduction of Analgesics, Hypnotics, Sedatives into Peripheral Vein, Percutaneous Approach (ICD-10-PCS; principal; 2017-04-09)
PROC: 3E033GC Introduction of Other Therapeutic Substance into Peripheral Vein, Percutaneous Approach (ICD-10-PCS; 2017-04-09)
PROC: 3E033NZ Introduction of Analgesics, Hypnotics, Sedatives into Peripheral Vein, Percutaneous Approach (ICD-10-PCS; 2017-04-09)
DX: K52.9 Noninfective gastroenteritis and colitis, unspecified (principal); E11.9 Type 2 diabetes mellitus without complications; K21.9 Gastro-esophageal reflux disease without esophagitis; F31.9 Bipolar disorder, unspecified; F20.9 Schizophrenia, unspecified; J45.909 Unspecified asthma, uncomplicated
CPT/HCPCS: 36415; 74177-TC; 80053; 81003; 81015; 83690; 83735; 84703; 85025; 87086; 96374; 96375; 99283-25; Q9967

== ENCOUNTER 2017-05-12 16:25 | Emergency (ER) | payer OTHER ==
[2017-05-12 16:40] VITALS: BP 114/72; PULSE 87; TEMP 98.6; BMI 32.9
--- NOTE | 2017-05-12 18:02 | PDOC ---
Attending Attestation - Resident Resident Name: KarthikJayson dang - ED Attending Attestation I have performed the following: I have examined & evaluated the patient, The case was reviewed & discussed with the resident, I agree w/resident's findings & plan, Exceptions are as noted - HPI HPI: 37 yo F history Crohn's, lupus, prior bouts with colitis and C Diff presents with N/V/D. She states that she has had 11 watery bowel movements so far today. Last CT 1 month ago, no abnormal findings at the time. She states that she typically has 3-4 bowel movements per day, so this is out of the ordinary for her. She also has been vomiting multiple times- nonbilious, nonbloody. Denies fever, chills. She has mild to moderate epigastric pain. - Physicial Exam PE: GENERAL: Awake, alert, and fully oriented, in no acute distress HEAD: No signs of trauma EYES: PERRLA, EOMI, sclera anicteric, conjunctiva clear ENT: Auricles normal inspection, hearing grossly normal, nares patent, oropharynx clear without exudates. Moist mucosa NECK: Normal ROM, supple, no lymphadenopathy, JVD, or masses LUNGS: Breath sounds equal, clear to auscultation bilaterally. No wheezes, and no crackles HEART: Regular rate and rhythm, normal S1 and S2, no murmurs, rubs or gallops ABDOMEN: Soft, +minimal epigastric tenderness, +hyperactive bowel sounds. No guarding, no rebound. No masses EXTREMITIES: Normal range of motion, no edema. No clubbing or cyanosis. No cords , erythema, or tenderness NEUROLOGICAL: Cranial nerves II through XII grossly intact. Normal speech, normal gait SKIN: Warm, Dry, normal turgor, no rashes or lesions noted. - Medical Decision Making Pt with minimal epigastric tenderness, hyperactive bowel sounds. Appears mildly dehydrated. Will send labs, start IV hydration, and test for CDiff. Will not obtain advanced imaging at present, as patient has had many CTs in the past due to her condition, would like to avoid whenever possible, and in the absence of significant tenderness today, not indicated.
--- NOTE | 2017-05-12 18:37 | PDOC ---
History of Present Illness - General History Source: Patient Exam Limitations: No Limitations - History of Present Illness Initial Comments: 05/12/17 18:32 The patient is a 37F with a PMH of Crohn's, lupus, asthma, diet controlled DM, c -diff, and nephrolithiasis who presents to the ED with nausea, vomiting, abdominal pain, and diarrhea. The patient states that this started in the morning with diarrhea, nausea and NBNB vomitus. The patient was here on 04/[address] done (negative) and was treated with flagyll. Today the patient states that she had diarrhea, then had diarrhea with vomiting. The patient also states that she was dizzy during the day. The patient states that she normally does not have abdominal pain after having a BM but the abdominal pain continues after having a BM. The pain is diffuse and started this morning. The patient states that this does not feel like a Crohn's flare up and does not feel like c- diff. <Jayson Malcolm - Last Filed: 05/13/17 08:13> <Rima Tracy - Last Filed: 05/14/17 09:19> - General Chief Complaint: Vomiting/Diarrhea Stated Complaint: VOMITTING, PAIN Time Seen by Provider: 05/12/17 17:29 Past History - Past Medical History Anemia: Yes Asthma: Yes Cancer: No Cardiac Disorders: No CVA: No COPD: No CHF: No Dementia: No Diabetes: Yes (NIDDM) GI Disorders: Yes (Crohn's disease, GASTROPARESIS, IBS, GERD) Disorders: Yes (kidney stones, INTERSTITIAL CYSTITIS) HTN: No Hypercholesterolemia: Yes Kidney Stones: Yes Liver Disease: No Psychiatric Problems: Yes (BIPOLAR, SCHIZOPHRENIA) Suicide Attempt (Hx): No Seizures: No Thyroid Disease: No - Surgical History Abdominal Surgery: Yes Appendectomy: No Cardiac Surgery: No Cholecystectomy: Yes Lung Surgery: No Neurologic Surgery: Yes (SPINAL FUSION) Orthopedic Surgery: Yes (spinal fusion 05/2011,L KNEE ARTHROSCOPY) - Immunization History Immunization Up to Date: Yes (FLU AND PNA 05/2012) - Psycho/Social/Smoking Cessation Hx Anxiety: No Suicidal Ideation: No Smoking Status: Yes Smoking History: Current every day smoker Have you smoked in the past 12 months: Yes Number of Cigarettes Smoked Daily: 2 If you are a former smoker, when did you quit?: 3 weeks ago Cigars Per Day: 2 Information on smoking cessation initiated: No 'Breaking Loose' booklet given: 10/26/16 Hx Alcohol Use: Yes (SOCIAL) Drug/Substance Use Hx: No Substance Use Type: None Hx Substance Use Treatment: No <Jayson Malcolm - Last Filed: 05/13/17 08:13> <Rima Tracy - Last Filed: 05/14/17 09:19> - Past Medical History Allergies/Adverse Reactions: Allergies Allergy/AdvReac Type Severity Reaction Status Date / Time metronidazole [From Flagyl] AdvReac Vomiting Verified 05/12/17 16:40 PAPER TAPE Allergy Rash Uncoded 05/12/17 16:40 raw onion Allergy Uncoded 05/12/17 16:40 Home Medications: Ambulatory Orders Adalimumab [Humira] 40 mg SQ ASDIR 06/23/15 Azelastine HCl [Astepro] 1 - 2 spr NS BID 06/23/15 Calcium 600 mg PO DAILY 06/23/15 Fluticasone Prop 0.05% Nasal [Flonase -] 1 - 2 spray NS DAILY 06/23/15 Quetiapine Fumarate [Seroquel -] 200 mg PO AM 06/23/15 Quetiapine Fumarate [Seroquel -] 600 mg PO HS 06/23/15 Lamotrigine [LaMICtal -] 200 mg PO DAILY 05/02/16 Albuterol Sulfate Inhaler - [Ventolin Hfa Inhaler -] 1 puff IH PRN PRN 01/01/17 Atorvastatin Ca [Lipitor] 40 mg PO HS 04/09/17 Benztropine Mesylate [Cogentin] 0.5 mg PO DAILY 04/09/17 Budesonide [Uceris] 33.4 gm RC DAILY 04/09/17 Cholecalciferol (Vitamin D3) [Vitamin D3 -] 50,000 unit PO ASDIR 04/09/17 Cyclobenzaprine HCl [Flexeril -] 10 mg PO TID 04/09/17 Diazepam [Valium] 10 mg PO BID 04/09/17 Diphenhydramine HCl [Benadryl -] 25 mg PO Q6H PRN 04/09/17 Escitalopram Oxalate [Lexapro -] 15 mg PO DAILY 04/09/17 Gabapentin [Neurontin] 600 mg PO QID 04/09/17 Levocetirizine Dihydrochloride [Xyzal] 10 mg PO BID 04/09/17 Lipase/Protease/Amylase [Sudhakar Alexander 36,000 Units Capsule] 1 each PO DAILY Multivitamins [Tab-A-Vit -] 1 tab PO DAILY 04/09/17 Nitrofurantoin Monohyd/M-Cryst [Macrobid -] 100 mg PO DAILY 04/09/17 Omeprazole/Sodium Bicarbonate [Zegerid 20mg Packet] 1 each PO DAILY 04/09/17 Oxybutynin Chloride [Ditropan -] 10 mg PO DAILY 04/09/17 Pentosan Polysulfate Sodium [Elmiron] 150 mg PO DAILY 04/09/17 Review of Systems - Review of Systems Able to Perform ROS?: Yes Is the patient limited Palauan proficient: No Constitutional: No: Chills, Fever Respiratory: No: Shortness of Breath Cardiac (ROS): No: Chest Pain ABD/GI: Yes: Diarrhea, Nausea, Vomiting, Other (abd pain). No: Blood Streaked Bowels, Constipated, Rectal Bleeding, Tarry Stools : No: Burning, Dysuria, Discharge Neurological: No: Headache, Numbness, Tingling, Weakness <Jayson Malcolm - Last Filed: 05/13/17 08:13> *Physical Exam - Vital Signs Last Vital Signs Temp Pulse Resp BP Pulse Ox 98.6 F 87 18 114/72 100 05/12/17 16:36 05/12/17 16:36 05/12/17 16:36 05/12/17 16:36 05/12/17 16:36 - Physical Exam General Appearance: Yes: Nourished, Appropriately Dressed. No: Apparent Distress HEENT: positive: Normal Voice, Hearing Grossly Normal Respiratory/Chest: positive: Lungs Clear, Normal Breath Sounds. negative: Chest Tender, Respiratory Distress, Accessory Muscle Use, Labored Respiration Cardiovascular: positive: Regular Rhythm, Regular Rate, S1, S2. negative: Diastolic Murmur, Systolic Murmur Gastrointestinal/Abdominal: positive: Flat. negative: Tender, Protuberent, Distended, Guarding, Rebound, Tenderness Musculoskeletal: negative: CVA Tenderness, CVA Tenderness (R), CVA Tenderness (L ) Extremity: positive: Normal Range of Motion, Pelvis Stable. negative: Swelling , Calf Tenderness Integumentary: negative: Dry, Warm Neurologic: positive: Alert, Normal Mood/Affect <Jayson Malcolm - Last Filed: 05/13/17 08:13> - Vital Signs Last Vital Signs Temp Pulse Resp BP Pulse Ox 98.6 F 87 18 114/72 100 05/12/17 16:36 05/12/17 16:36 05/12/17 16:36 05/12/17 16:36 05/12/17 16:36 <Rima Tracy - Last Filed: 05/14/17 09:19> ED Treatment Course - LABORATORY CBC & Chemistry Diagram: 05/12/17 18:20 05/12/17 20:30 <Jayson Malcolm - Last Filed: 05/13/17 08:13> - LABORATORY CBC & Chemistry Diagram: 05/12/17 18:20 05/12/17 20:30 - ADDITIONAL ORDERS Additional order review: 05/12/17 18:20 RBC 4.36 MCV 91.6 MCHC 33.8 RDW 14.4 MPV 8.4 Neutrophils % 41.1 L D Lymphocytes % 48.2 H D Monocytes % 8.2 Eosinophils % 1.6 Basophils % 0.9 - Medications Given in the ED: ED Medications Discontinued Medications Generic Name Dose Route Start Last Admin Trade Name Shara PRN Reason Stop Dose Admin Acetaminophen 650 mg 05/12/17 20:14 05/12/17 20:33 Tylenol - PO 05/12/17 20:15 650 mg ONCE ONE Administration Famotidine/Sodium Chloride 50 mls @ 100 mls/hr 05/12/17 20:14 05/12/17 20:33 Pepcid 20 Mg Premixed Ivpb - IVPB 05/12/17 20:43 100 mls/hr ONCE ONE Administration Metoclopramide HCl 10 mg 05/12/17 20:14 05/12/17 20:33 Reglan Injection - IVPB 05/12/17 20:15 10 mg ONCE ONE Administration Morphine Sulfate 4 mg 05/12/17 18:58 05/12/17 19:12 Morphine Injection - IVPUSH 05/12/17 18:59 4 mg ONCE ONE Administration Ondansetron HCl 4 mg 05/12/17 18:58 05/12/17 19:12 Zofran Injection IVPUSH 05/12/17 18:59 4 mg ONCE ONE Administration Sodium Chloride 1,000 ml 05/12/17 18:58 05/12/17 19:12 Normal Saline - IV 05/12/17 18:59 1,000 ml ONCE ONE Administration <Rima Tracy - Last Filed: 05/14/17 09:19> Medical Decision Making - Medical Decision Making 05/12/17 19:04 The patient is a 37F with a PMH of Crohn's and c-diff who presents after 1 day of diarrhea, vomiting, and abdominal pain. I have ordered labs to r/u a repeat c -diff infection. Patient signed out to night team. <Jayson Malcolm - Last Filed: 05/13/17 08:13> *DC/Admit/Observation/Transfer - Attestations Physician Attestion: 05/13/17 08:13 I, Dr. Jayson Malcolm, attest that this document has been prepared under my direction and personally reviewed by me in its entirety. I further attest, that it accurately reflects all work, treatment, procedures, and medical decision- making performed by me. <Jayson Malcolm - Last Filed: 05/13/17 08:13> <Rima Tracy - Last Filed: 05/14/17 09:19> Diagnosis at time of Disposition: Abdominal pain Qualifiers: Abdominal location: unspecified location Qualified Code(s): R10.9 - Unspecified abdominal pain - Discharge Dispostion Disposition: AGAINST MEDICAL ADVICE Condition at time of disposition: Stable - Referrals Referrals: Behzad Chadwick MD [Primary Care Provider] - - Patient Instructions Printed Discharge Instructions: DI for Crohn's Disease Additional Instructions: Please follow up with your PCP on Sunday. If you experience worsening of your current symptoms or develop any new or concerning symptoms please return to the emergency room immediately or call 911.
[2017-05-12 18:44] LABS: BASOPHIL 0.9 % (0-2.0); EOSINOPHIL 1.6 % (0-4.5); MCH 30.9 pg (25.7-33.7); MCHC 33.8 g/dl (32.0-36.0); MEAN CELL VOLUME 91.6 fl (80-96); MEAN PLT VOLUME 8.4 fl (7.5-11.1); NEUTROPHILS 41.1 % (42.8-82.8); PLATELET COUNT 264 K/MM3 (134-434); RDW 14.4 % (11.6-15.6); WHITE BLOOD COUNT 8.8 K/mm3 (4.0-10.0)
[2017-05-12 18:44] LABS: URINE APPEARANCE CLOUDY; URINE BILIRUBIN NEGATIVE (NEGATIVE); URINE BLOOD NEGATIVE (NEGATIVE); URINE COLOR YELLOW; URINE GLUCOSE (UA) NEGATIVE (NEGATIVE); URINE KETONE NEGATIVE (NEGATIVE); URINE LEUK ESTERASE NEGATIVE (NEGATIVE); URINE NITRITE NEGATIVE (NEGATIVE); URINE PROTEIN NEGATIVE (NEGATIVE); URINE UROBILINOGEN NEGATIVE mg/dL (0.2-1.0)
[2017-05-12] MEDS ORDERED: morphine CARPU-JECT 4 MG/1 ML DISP.SYRIN IVPUSH ONE (18:58)
[2017-05-12] MEDS ORDERED: SODIUM CHLORIDE 0.9% 1000 ML INFUS.BAG IV ONE (18:58)
[2017-05-12] MEDS ORDERED: ONDANSETRON 4 MG/2 ML VIAL IVPUSH ONE (18:58)
[2017-05-12] MEDS ORDERED: morphine CARPU-JECT 2 MG/1 ML DISP.SYRIN ONE (19:03)
[2017-05-12] MEDS ORDERED: ONDANSETRON 4 MG/2 ML VIAL ONE (19:03)
[2017-05-12] MEDS ORDERED: METOCLOPRAMIDE HCL INJECTION 10 MG/2 ML VIAL IVPB ONE (20:14)
[2017-05-12] MEDS ORDERED: FAMOTIDINE 20 MG/50 ML IVPB 50 ML IVPB ONE ×2 (20:14→20:17)
[2017-05-12] MEDS ORDERED: ACETAMINOPHEN 325 MG TABLET (FP) PO ONE (20:14)
[2017-05-12] MEDS ORDERED: METOCLOPRAMIDE HCL INJECTION 10 MG/2 ML VIAL ONE (20:16)
[2017-05-12] MEDS ORDERED: ACETAMINOPHEN 325 MG TABLET (FP) ONE (20:16)
--- NOTE | 2017-05-12 20:31 | PDOC ---
*Physical Exam - Vital Signs Last Vital Signs Temp Pulse Resp BP Pulse Ox 98.6 F 87 18 114/72 100 05/12/17 16:36 05/12/17 16:36 05/12/17 16:36 05/12/17 16:36 05/12/17 16:36 - Physical Exam General Appearance: Yes: Nourished, Appropriately Dressed. No: Apparent Distress HEENT: positive: EOMI, Normal Voice Neurologic: positive: Fully Oriented, Alert ED Treatment Course - LABORATORY CBC & Chemistry Diagram: 05/12/17 18:20 05/12/17 20:30 - ADDITIONAL ORDERS Additional order review: Laboratory Results 05/12/17 05/12/17 18:21 18:20 Sodium Cancelled Potassium Cancelled Chloride Cancelled Carbon Dioxide Cancelled Anion Gap Cancelled BUN Cancelled Creatinine Cancelled Creat Clearance w eGFR Cancelled Random Glucose Cancelled Calcium Cancelled Total Bilirubin Cancelled AST Cancelled ALT Cancelled Alkaline Phosphatase Cancelled Total Protein Cancelled Albumin Cancelled Lipase Cancelled Urine Color Yellow Urine Appearance Cloudy Urine pH 6.0 D Urine Protein Negative Urine Glucose (UA) Negative Urine Ketones Negative Urine Blood Negative Urine Nitrite Negative Urine Bilirubin Negative Urine Urobilinogen Negative Ur Leukocyte Esterase Negative Urine HCG, Qual Negative 05/12/17 18:20 RBC 4.36 MCV 91.6 MCHC 33.8 RDW 14.4 MPV 8.4 Neutrophils % 41.1 L D Lymphocytes % 48.2 H D Monocytes % 8.2 Eosinophils % 1.6 Basophils % 0.9 - Medications Given in the ED: ED Medications Discontinued Medications Generic Name Dose Route Start Last Admin Trade Name Shara PRN Reason Stop Dose Admin Morphine Sulfate 4 mg 05/12/17 18:58 05/12/17 19:12 Morphine Injection - IVPUSH 05/12/17 18:59 4 mg ONCE ONE Administration Ondansetron HCl 4 mg 05/12/17 18:58 05/12/17 19:12 Zofran Injection IVPUSH 05/12/17 18:59 4 mg ONCE ONE Administration Sodium Chloride 1,000 ml 05/12/17 18:58 05/12/17 19:12 Normal Saline - IV 05/12/17 18:59 1,000 ml ONCE ONE Administration Progress Note - Progress Note Progress Note: The patient is a 37 year old female signed-out to me by Dr. Malcolm Patient has a history of Crohn's disease and SLE and presented with abdominal pain, nausea, vomiting, and diarrhea. Waiting on lab results Patient can be discharged if normal Medical Decision Making - Medical Decision Making 05/12/17 21:21 Spoke with patient. She stated she wants to leave. I explained to her that we have not yet received her lab results and that she would be leaving against medical advise if she left now. I explained that leaving AMA is dangerous and can lead to worsening of her condition, permanent disability, and even . I used lay terminology. I answered all questions. It is clear to me that she understands the risks and benefits of leaving AMA. she has the capacity to make her own decisions. She stated that she understood and has an appointment at [facility] on Sunday and would like to leave and agrees to come back to the hospital if symptoms persist or worsen. 05/12/17 21:29 Patient elected to leave AMA, signed document indicating an understanding of the risks of leaving. 05/12/17 21:39 As I was printing the patient's discharge information and before the RN could attend to the patient, she removed her own IV and left the emergency department. *DC/Admit/Observation/Transfer Diagnosis at time of Disposition: Abdominal pain Qualifiers: Abdominal location: unspecified location Qualified Code(s): R10.9 - Unspecified abdominal pain - Discharge Dispostion Disposition: AGAINST MEDICAL ADVICE Condition at time of disposition: Stable - Referrals Referrals: Behzad Chadwick MD [Primary Care Provider] - - Patient Instructions Printed Discharge Instructions: DI for Crohn's Disease Additional Instructions: Please follow up with your PCP on Sunday. If you experience worsening of your current symptoms or develop any new or concerning symptoms please return to the emergency room immediately or call 911.
[2017-05-12 21:10] LABS: ALBUMIN 3.4 g/dl (3.4-5.0); ALK PHOS 73 U/L (45-117); ANION GAP 7 (8-16); BILIRUBIN,TOTAL 0.2 mg/dL (0.2-1.0); CALCIUM 8.4 mg/dL (8.5-10.1); CO2 25 mmol/L (21-32); CREATININE 0.9 mg/dL (0.55-1.02); GLUCOSE,RANDOM 99 mg/dL (74-106); SGOT/AST 21 U/L (15-37); SGPT/ALT 35 U/L (12-78); TOT PROT 6.6 g/dl (6.4-8.2)
== END 2017-05-12 21:36 | disposition left against medical advice (07) ==
LOC: JER 16:25
PROC: 3E033NZ Introduction of Analgesics, Hypnotics, Sedatives into Peripheral Vein, Percutaneous Approach (ICD-10-PCS; principal; 2017-05-12)
PROC: 3E033GC Introduction of Other Therapeutic Substance into Peripheral Vein, Percutaneous Approach (ICD-10-PCS; 2017-05-12)
DX: R10.84 Generalized abdominal pain (principal); E11.9 Type 2 diabetes mellitus without complications; J45.909 Unspecified asthma, uncomplicated; Z87.19 Personal history of other diseases of the digestive system; Z87.442 Personal history of urinary calculi; F31.9 Bipolar disorder, unspecified; F20.9 Schizophrenia, unspecified; F17.210 Nicotine dependence, cigarettes, uncomplicated
CPT/HCPCS: 36415; 80053; 81003; 83690; 84703; 85025; 96374; 96375; 99281-25

== ENCOUNTER 2017-06-24 16:45 | Emergency (ER) | payer OTHER ==
[2017-06-24 16:50] VITALS: BP 128/72; PULSE 86; TEMP 98.8; BMI 33.9
--- NOTE | 2017-06-24 17:07 | PDOC ---
Attending Attestation - Resident Resident Name: SloanePeter - ED Attending Attestation I have performed the following: I have examined & evaluated the patient, The case was reviewed & discussed with the resident, I agree w/resident's findings & plan, Exceptions are as noted - HPI HPI: 37 yo F history Crohn's, GERD, gastroparesis, C diff, interstitial cystitis, DM , s/p cholecystectomy, nephrolithiasis and asthma p/w diarrhea. She has history of diarrhea chronically, tends to wax and wane. She states she has had 11 episodes of diarrhea today, has been unable to keep anything down. She denies dysuria. She states she had a fever this morning, took antipyretic with relief. She has been seen by Dr. Herzog, but he recently recommended she move her care to [facility] for possible colostomy or fecal transplant. C/o diffuse abd pain. - Physicial Exam PE: GENERAL: Awake, alert, and fully oriented, in no acute distress HEAD: No signs of trauma EYES: PERRLA, EOMI, sclera anicteric, conjunctiva clear ENT: Auricles normal inspection, hearing grossly normal, nares patent, oropharynx clear without exudates. Moist mucosa NECK: Normal ROM, supple, no lymphadenopathy, JVD, or masses LUNGS: Breath sounds equal, clear to auscultation bilaterally. No wheezes, and no crackles HEART: Regular rate and rhythm, normal S1 and S2, no murmurs, rubs or gallops ABDOMEN: Soft, nontender, normoactive bowel sounds. No guarding, no rebound. No masses EXTREMITIES: Normal range of motion, no edema. No clubbing or cyanosis. No cords, erythema, or tenderness NEUROLOGICAL: Cranial nerves II through XII grossly intact. Normal speech, normal gait SKIN: Warm, Dry, normal turgor, no rashes or lesions noted. - Medical Decision Making Patient with multiple prior presentations with similar symptoms. No diarrhea in ED as yet, but if so, will send C Diff. Will give IVF and GI cocktail.
[2017-06-24] MEDS ORDERED: ONDANSETRON 4 MG/2 ML VIAL IVPB ONE (17:15)
[2017-06-24] MEDS ORDERED: SODIUM CHLORIDE 1,000 ML IV STA (17:15)
[2017-06-24] MEDS ORDERED: MAG HYDROX/AL HYDROX/SIMETH 30 ML UNIT-DOSE CUP PO ONE (17:15)
[2017-06-24] MEDS ORDERED: diphenhydrAMINE HCL 25 MG CAPSULE (FP) PO ONE ×2 (17:16→17:32)
--- NOTE | 2017-06-24 17:25 | PDOC ---
History of Present Illness - General Chief Complaint: Pain Stated Complaint: STOMACH PAIN Time Seen by Provider: 06/24/17 16:55 History Source: Patient Exam Limitations: No Limitations - History of Present Illness Initial Comments: 06/24/17 17:18 37F with history of chron's, GERD, gastroparesis, C diff, IC, DM, s/p cholecystectomy, nephrolithiasis s/p stenting and asthma here today complaining diarrhea, vomiting and abdominal pain. The vomiting started 3 days ago, the vomiting started 2 days ago. The abdominal pain is located in the right lower quadrant. She says that it radiates around her stomach when she's about to have a bowel movement. She says she's had 11 episodes of diarrhea today. She denies recent antibiotic use. She also endorses fever of a 103, which she treated with tylenol at home this morning. She denies bloody vomit, bloody diarrhea, coffee ground emesis and melena. Patient denies shortness of breath, chest pain, and pain with urination. Patient was followed by AMA Brown, but her care has been transferred to [facility] which she has yet to setup. Past History - Past Medical History Allergies/Adverse Reactions: Allergies Allergy/AdvReac Type Severity Reaction Status Date / Time metronidazole [From Flagyl] AdvReac Vomiting Verified 06/24/17 16:50 PAPER TAPE Allergy Rash Uncoded 06/24/17 16:50 raw onion Allergy Uncoded 06/24/17 16:50 Home Medications: Ambulatory Orders Adalimumab [Humira] 40 mg SQ ASDIR 06/23/15 Azelastine HCl [Astepro] 1 - 2 spr NS BID 06/23/15 Calcium 600 mg PO DAILY 06/23/15 Fluticasone Prop 0.05% Nasal [Flonase -] 1 - 2 spray NS DAILY 06/23/15 Quetiapine Fumarate [Seroquel -] 200 mg PO AM 06/23/15 Quetiapine Fumarate [Seroquel -] 600 mg PO HS 06/23/15 Lamotrigine [LaMICtal -] 200 mg PO DAILY 05/02/16 Albuterol Sulfate Inhaler - [Ventolin Hfa Inhaler -] 1 puff IH PRN PRN 01/01/17 Atorvastatin Ca [Lipitor] 40 mg PO HS 04/09/17 Benztropine Mesylate [Cogentin] 0.5 mg PO DAILY 04/09/17 Budesonide [Uceris] 33.4 gm RC DAILY 04/09/17 Cholecalciferol (Vitamin D3) [Vitamin D3 -] 50,000 unit PO ASDIR 04/09/17 Cyclobenzaprine HCl [Flexeril -] 10 mg PO TID 04/09/17 Diazepam [Valium] 10 mg PO BID 04/09/17 Diphenhydramine HCl [Benadryl -] 25 mg PO Q6H PRN 04/09/17 Escitalopram Oxalate [Lexapro -] 15 mg PO DAILY 04/09/17 Gabapentin [Neurontin] 600 mg PO QID 04/09/17 Levocetirizine Dihydrochloride [Xyzal] 10 mg PO BID 04/09/17 Lipase/Protease/Amylase [Creon Dr 36,000 Units Capsule] 1 each PO DAILY Multivitamins [Tab-A-Vit -] 1 tab PO DAILY 04/09/17 Nitrofurantoin Monohyd/M-Cryst [Macrobid -] 100 mg PO DAILY 04/09/17 Omeprazole/Sodium Bicarbonate [Zegerid 20mg Packet] 1 each PO DAILY 04/09/17 Oxybutynin Chloride [Ditropan -] 10 mg PO DAILY 04/09/17 Pentosan Polysulfate Sodium [Elmiron] 150 mg PO DAILY 04/09/17 Anemia: Yes Asthma: Yes Cancer: No Cardiac Disorders: No CVA: No COPD: No CHF: No Dementia: No Diabetes: Yes (NIDDM) GI Disorders: Yes (Crohn's disease, GASTROPARESIS, IBS, GERD) Disorders: Yes (kidney stones, INTERSTITIAL CYSTITIS) HTN: No Hypercholesterolemia: Yes Kidney Stones: Yes Liver Disease: No Psychiatric Problems: Yes (BIPOLAR, SCHIZOPHRENIA) Seizures: No Thyroid Disease: No - Surgical History Abdominal Surgery: Yes Appendectomy: No Cardiac Surgery: No Cholecystectomy: Yes Lung Surgery: No Neurologic Surgery: Yes (SPINAL FUSION) Orthopedic Surgery: Yes (spinal fusion 05/2011,L KNEE ARTHROSCOPY) - Immunization History Immunization Up to Date: Yes (FLU AND PNA 05/2012) - Suicide/Smoking/Psychosocial Hx Smoking Status: Yes Smoking History: Never smoked Have you smoked in the past 12 months: Yes Number of Cigarettes Smoked Daily: 2 If you are a former smoker, when did you quit?: 3 weeks ago Cigars Per Day: 2 Information on smoking cessation initiated: No 'Breaking Loose' booklet given: 10/26/16 Hx Alcohol Use: Yes (SOCIALLY) Drug/Substance Use Hx: No Substance Use Type: None Hx Substance Use Treatment: No Review of Systems - Review of Systems Comments:: 06/24/17 17:25 GENERAL/CONSTITUTIONAL: Positive for fevers and chills. Negative for weakness. HEAD, EYES, EARS, NOSE AND THROAT: No change in vision. No sore throat. CARDIOVASCULAR: No chest pain or shortness of breath RESPIRATORY: No cough, wheezing, or hemoptysis. GASTROINTESTINAL: Positive for nausea, vomiting, and diarrhea GENITOURINARY: No dysuria, frequency, or change in urination. MUSCULOSKELETAL: No joint or muscle swelling or pain. No neck or back pain. SKIN: Positive for rash yesterday, now resolved. Remaining diffuse itchiness. NEUROLOGIC: Positive for headache. Negative for vertigo, loss of consciousness, or change in strength/sensation. HEMATOLOGIC/LYMPHATIC: No anemia, easy bleeding, or history of blood clots. ALLERGIC/IMMUNOLOGIC: No hives or skin allergy. *Physical Exam - Vital Signs Last Vital Signs Temp Pulse Resp BP Pulse Ox 98.8 F 86 19 128/72 98 06/24/17 16:48 06/24/17 16:48 06/24/17 16:48 06/24/17 16:48 06/24/17 16:48 - Physical Exam Comments: 06/24/17 17:27 GENERAL: Awake, alert, and fully oriented, in no acute distress HEAD: No signs of trauma, normocephalic, atraumatic EYES: PERRLA, EOMI, sclera anicteric, conjunctiva clear ENT: Auricles normal inspection, hearing grossly normal, nares patent, oropharynx clear without exudates. Moist mucosa NECK: Normal ROM, supple, no lymphadenopathy, JVD, or masses LUNGS: No distress, speaks full sentences, clear to auscultation bilaterally HEART: Regular rate and rhythm, normal S1 and S2, no murmurs, rubs or gallops, peripheral pulses normal and equal bilaterally. ABDOMEN: Soft, distractable tenderness in RUQ and RLQ. Normoactive bowel sounds. No guarding, no rebound. No masses EXTREMITIES: Normal inspection, Normal range of motion, no edema. No clubbing or cyanosis. NEUROLOGICAL: Cranial nerves II through XII grossly intact. Normal speech, normal gait, no focal sensorimotor deficits SKIN: Warm, Dry, normal turgor, no rashes or lesions noted. ED Treatment Course - LABORATORY CBC & Chemistry Diagram: 06/24/17 17:10 06/24/17 17:10 Medical Decision Making - Medical Decision Making 06/24/17 17:34 Patient is a 37F with history of chron's, c diff, gastroparesis, DM, IC, Bipolar and asthma here today complaining of diarrhea. Vital signs normal and stable. Exam not consistent with reported pain. Patient sitting up comfortably in bed, walking easily across ED. At last visit, left AMA after receiving pain medication but before labs came back. Will evaluate with labs, ua, upreg. Will decide on need for imaging after labs are received and patient is reassessed. 06/24/17 17:59 Laboratory Tests 06/24/17 06/24/17 17:10 17:41 WBC 10.0 Hgb 14.0 Hct 41.7 Plt Count 262 Urine HCG, Qual Negative CBC normal, upreg negative. 06/24/17 18:17 CMP normal. Will reassess patient. 06/24/17 18:52 UA negative. Patient says nausea has resolved, but that abdominal pain has persistent. Patient exam is still benign. Patient has had no episodes of vomiting or diarrhea in the ED today. Patient is alert and ambulatory. Will give PO challenge and discharge if passed. Return precautions given. 06/24/17 19:03 Patient passed PO challenge. Will discharge with GI follow up already arranged. *DC/Admit/Observation/Transfer Diagnosis at time of Disposition: Abdominal pain, Diarrhea - Discharge Dispostion Disposition: HOME Condition at time of disposition: Good Admit: No - Referrals Referrals: Behzad Chadwick MD [Primary Care Provider] - - Patient Instructions Printed Discharge Instructions: DI for Abdominal Pain-Adult, DI for Diarrhea and Traveler's Diarrhea -- Adult
[2017-06-24] MEDS ORDERED: MAG HYDROX/AL HYDROX/SIMETH 30 ML UNIT-DOSE CUP ONE (17:32)
[2017-06-24] MEDS ORDERED: ONDANSETRON 4 MG/2 ML VIAL ONE (17:33)
[2017-06-24 17:47] LABS: BASOPHIL 0.4 % (0-2.0); EOSINOPHIL 1.8 % (0-4.5); MCH 30.9 pg (25.7-33.7); MCHC 33.6 g/dl (32.0-36.0); MEAN CELL VOLUME 92.1 fl (80-96); MEAN PLT VOLUME 8.5 fl (7.5-11.1); NEUTROPHILS 57.3 % (42.8-82.8); PLATELET COUNT 262 K/MM3 (134-434)
[2017-06-24 17:50] LABS: URINE APPEARANCE CLOUDY; URINE BILIRUBIN NEGATIVE (NEGATIVE); URINE BLOOD NEGATIVE (NEGATIVE); URINE COLOR YELLOW; URINE GLUCOSE (UA) NEGATIVE (NEGATIVE); URINE KETONE NEGATIVE (NEGATIVE); URINE NITRITE NEGATIVE (NEGATIVE); URINE PROTEIN NEGATIVE (NEGATIVE); URINE UROBILINOGEN NEGATIVE mg/dL (0.2-1.0)
[2017-06-24 18:08] LABS: ALBUMIN 3.5 g/dl (3.4-5.0); ALK PHOS 69 U/L (45-117); ANION GAP 7 (8-16); BILIRUBIN,TOTAL 0.4 mg/dL (0.2-1.0); CALCIUM 8.7 mg/dL (8.5-10.1); CO2 25 mmol/L (21-32); CREATININE 0.7 mg/dL (0.55-1.02); GLUCOSE,RANDOM 85 mg/dL (74-106); SGOT/AST 17 U/L (15-37); SGPT/ALT 24 U/L (12-78)
[2017-06-24 21:16] LABS: URINE LEUK ESTERASE Negative (NEGATIVE)
== END 2017-06-24 20:12 | disposition home or self-care (01) ==
LOC: JER 16:45
PROC: 3E033GC Introduction of Other Therapeutic Substance into Peripheral Vein, Percutaneous Approach (ICD-10-PCS; principal; 2017-06-24)
PROC: 3E0337Z Introduction of Electrolytic and Water Balance Substance into Peripheral Vein, Percutaneous Approach (ICD-10-PCS; 2017-06-24)
DX: R10.31 Right lower quadrant pain (principal); R19.7 Diarrhea, unspecified; K50.90 Crohn's disease, unspecified, without complications; K21.9 Gastro-esophageal reflux disease without esophagitis; E11.9 Type 2 diabetes mellitus without complications; J45.909 Unspecified asthma, uncomplicated; D64.9 Anemia, unspecified; E78.00 Pure hypercholesterolemia, unspecified; K58.9 Irritable bowel syndrome, unspecified; Z87.442 Personal history of urinary calculi
CPT/HCPCS: 36415; 80053; 81003; 83690; 84703; 85025; 99283-25

== ENCOUNTER 2017-07-11 13:36 | Emergency (ER) | payer OTHER ==
[2017-07-11 13:41] VITALS: TEMP 99.1; BMI 34.9
[2017-07-11] MEDS ORDERED: SODIUM CHLORIDE 1,000 ML IV STA (13:54)
--- NOTE | 2017-07-11 14:00 | PDOC ---
History of Present Illness - General Chief Complaint: Diarrhea Stated Complaint: DIARRHEA Time Seen by Provider: 07/11/17 13:46 History Source: Patient - History of Present Illness Timing/Duration: reports: constant, getting worse Past History - Past Medical History Allergies/Adverse Reactions: Allergies Allergy/AdvReac Type Severity Reaction Status Date / Time metronidazole [From Flagyl] AdvReac Vomiting Verified 07/11/17 13:42 PAPER TAPE Allergy Rash Uncoded 07/11/17 13:42 raw onion Allergy Uncoded 07/11/17 13:42 Home Medications: Ambulatory Orders Adalimumab [Humira] 40 mg SQ ASDIR 06/23/15 Azelastine HCl [Astepro] 1 - 2 spr NS BID 06/23/15 Calcium 600 mg PO DAILY 06/23/15 Fluticasone Prop 0.05% Nasal [Flonase -] 1 - 2 spray NS DAILY 06/23/15 Quetiapine Fumarate [Seroquel -] 200 mg PO AM 06/23/15 Quetiapine Fumarate [Seroquel -] 600 mg PO HS 06/23/15 Lamotrigine [LaMICtal -] 200 mg PO DAILY 05/02/16 Albuterol Sulfate Inhaler - [Ventolin Hfa Inhaler -] 1 puff IH PRN PRN 01/01/17 Atorvastatin Ca [Lipitor] 40 mg PO HS 04/09/17 Benztropine Mesylate [Cogentin] 0.5 mg PO DAILY 04/09/17 Budesonide [Uceris] 33.4 gm RC DAILY 04/09/17 Cholecalciferol (Vitamin D3) [Vitamin D3 -] 50,000 unit PO ASDIR 04/09/17 Cyclobenzaprine HCl [Flexeril -] 10 mg PO TID 04/09/17 Diazepam [Valium] 10 mg PO BID 04/09/17 Diphenhydramine HCl [Benadryl -] 25 mg PO Q6H PRN 04/09/17 Escitalopram Oxalate [Lexapro -] 15 mg PO DAILY 04/09/17 Gabapentin [Neurontin] 600 mg PO QID 04/09/17 Levocetirizine Dihydrochloride [Xyzal] 10 mg PO BID 04/09/17 Lipase/Protease/Amylase [Creon Dr 36,000 Units Capsule] 1 each PO DAILY Multivitamins [Tab-A-Vit -] 1 tab PO DAILY 04/09/17 Nitrofurantoin Monohyd/M-Cryst [Macrobid -] 100 mg PO DAILY 04/09/17 Omeprazole/Sodium Bicarbonate [Zegerid 20mg Packet] 1 each PO DAILY 04/09/17 Oxybutynin Chloride [Ditropan -] 10 mg PO DAILY 04/09/17 Pentosan Polysulfate Sodium [Elmiron] 150 mg PO DAILY 04/09/17 Anemia: Yes Asthma: Yes Cancer: No Cardiac Disorders: No CVA: No COPD: No CHF: No Dementia: No Diabetes: Yes (NIDDM) GI Disorders: Yes (Crohn's disease, GASTROPARESIS, IBS, GERD) Disorders: Yes (kidney stones, INTERSTITIAL CYSTITIS) HTN: No Hypercholesterolemia: Yes Kidney Stones: Yes Liver Disease: No Psychiatric Problems: Yes (BIPOLAR, SCHIZOPHRENIA) Seizures: No Thyroid Disease: No - Surgical History Abdominal Surgery: Yes Appendectomy: No Cardiac Surgery: No Cholecystectomy: Yes Lung Surgery: No Neurologic Surgery: Yes (SPINAL FUSION) Orthopedic Surgery: Yes (spinal fusion 05/2011,L KNEE ARTHROSCOPY) - Immunization History Immunization Up to Date: Yes (FLU AND PNA 05/2012) - Suicide/Smoking/Psychosocial Hx Smoking Status: Yes Smoking History: Never smoked Have you smoked in the past 12 months: Yes Number of Cigarettes Smoked Daily: 2 If you are a former smoker, when did you quit?: 3 weeks ago Cigars Per Day: 2 'Breaking Loose' booklet given: 10/26/16 Hx Alcohol Use: Yes (SOCIAL) Drug/Substance Use Hx: No Substance Use Type: None Hx Substance Use Treatment: No Abd/GI Specific PMHX - Complaint Specific PMHX Colitis: Yes Diverticulitis: No Gall Bladder Disease: No GERD: Yes Hepatitis: No Irritable Bowel Synd (IBS): Yes Pancreatitis: Yes GI Ulcer Disease: No Review of Systems - Review of Systems Constitutional: Yes: Fever ABD/GI: Yes: Diarrhea, Abdominal cramping. No: Blood Streaked Bowels, Constipated, Nausea, Vomiting *Physical Exam - Vital Signs Last Vital Signs Temp Pulse Resp BP Pulse Ox 99.1 F 94 H 20 119/65 100 07/11/17 13:39 07/11/17 13:39 07/11/17 13:39 07/11/17 13:39 07/11/17 13:39 - Physical Exam General Appearance: Yes: Appropriately Dressed. No: Apparent Distress HEENT: positive: Normal Voice Neck: positive: Supple Respiratory/Chest: negative: Respiratory Distress Gastrointestinal/Abdominal: positive: Normal Bowel Sounds, Soft. negative: Tender, Distended, Guarding, Rebound Integumentary: positive: Dry, Warm Neurologic: positive: Fully Oriented, Alert, Normal Mood/Affect ED Treatment Course - LABORATORY CBC & Chemistry Diagram: 07/11/17 14:53 07/11/17 14:53 Medical Decision Making - Medical Decision Making 07/11/17 13:54 37-year-old female, history of diet-controlled diabetes, gastroparesis, lupus, Crohn's disease on Humira every 2 weekly, no surgery to date, states IBD was under control until recently, recurrent C. difficile, last treated several months ago, scheduled for fecal transplant next month per patient, here with diarrhea. Patient complaining of multiple episodes of non-bloody watery stools for the past several days and now having some lower abdominal cramping. States she had "18" episodes of diarrhea in a 24 hr period. No hematochezia, nausea or vomiting. States she contacted her dry house tender, Dr. Herzog, on Sunday and told to take Bentyl which patient is taking, but does not relieve symptoms. States she thought she had a fever last night, but did not check temperature See exam CD, recurrent cdif w/ NB watery diarrhea and abd cramping Stable and in NAD w/ benign abd IBD flare vs recurrent cdif, unlikely SBO -IVF -labs -stool study for cdif -will discuss need for CT w/ GI -dispo pending 07/11/17 14:[address] Herzog. Wilbert states patient well-known to him and has been caring for her since 2006. States though pt endorses history of Crohn's, has never been proven to have condition based on multiple workup in the past. states patient is in fact not scheduled for fecal transplant, but did have one episode of C.difficile September of this year (+for antigen only, not toxin) based on chart review that was treated with vancomycin inhouse. States based on his experience, patient often exaggerates history, which could be a consequence of patient's bipolar disorder. Agrees with workup in ED but states if labs unremarkable and not consistent with severe diarrhea, that patient can be discharged to follow up with him in office. 07/11/17 16:29 Labs within normal limits. Cdif will not be ran today given time as per lab staff (test ran in the am/afternoon only). Patient remains stable and well appearing in ED with no n/v and tolerating po. As per d/w ED attg, will dc and have pt call us in the am for cdif results. Reasons to return discussed with patient. *DC/Admit/Observation/Transfer Diagnosis at time of Disposition: Diarrhea Qualifiers: Diarrhea type: unspecified type Qualified Code(s): R19.7 - Diarrhea, unspecified - Discharge Dispostion Disposition: HOME Condition at time of disposition: Improved - Referrals Referrals: Behzad Chadwick MD [Primary Care Provider] - - Patient Instructions Printed Discharge Instructions: Diarrhea Additional Instructions: Your blood work was normal today. We did send off your stool to rule out C. difficile but won't get results until tomorrow. We will call you if test is positive, otherwise you can call us at [phone] any time after 9 AM. If symptoms worsen tonight, return to ED Follow-up with Dr. Herzog next week
[2017-07-11 15:47] LABS: BASOPHIL 0.5 % (0-2.0); MCH 30.6 pg (25.7-33.7); MCHC 33.4 g/dl (32.0-36.0); MEAN CELL VOLUME 91.7 fl (80-96); MEAN PLT VOLUME 8.8 fl (7.5-11.1); NEUTROPHILS 69.1 % (42.8-82.8); PLATELET COUNT 290 K/MM3 (134-434); RDW 13.9 % (11.6-15.6)
[2017-07-11 15:57] LABS: URINE APPEARANCE CLEAR; URINE BILIRUBIN NEGATIVE (NEGATIVE); URINE BLOOD NEGATIVE (NEGATIVE); URINE COLOR LTYELLOW; URINE GLUCOSE (UA) NEGATIVE (NEGATIVE); URINE KETONE NEGATIVE (NEGATIVE); URINE NITRITE NEGATIVE (NEGATIVE); URINE PROTEIN NEGATIVE (NEGATIVE); URINE UROBILINOGEN NEGATIVE mg/dL (0.2-1.0)
[2017-07-11 16:17] LABS: ANION GAP 8 (8-16); BILIRUBIN,TOTAL 0.6 mg/dL (0.2-1.0); CALCIUM 8.4 mg/dL (8.5-10.1); CO2 25 mmol/L (21-32); CREATININE 0.8 mg/dL (0.55-1.02); GLUCOSE,RANDOM 83 mg/dL (74-106); SGOT/AST 19 U/L (15-37); SGPT/ALT 25 U/L (12-78); TOT PROT 7.3 g/dl (6.4-8.2)
[2017-07-11 16:18] LABS: ALK PHOS 73 U/L (45-117)
[2017-07-11 17:06] VITALS: BP 101/59; PULSE 73
[2017-07-11 20:26] LABS: URINE LEUK ESTERASE Negative (NEGATIVE)
== END 2017-07-11 17:06 | disposition home or self-care (01) ==
LOC: JER 13:36
PROC: 3E0337Z Introduction of Electrolytic and Water Balance Substance into Peripheral Vein, Percutaneous Approach (ICD-10-PCS; principal; 2017-07-11)
DX: R19.7 Diarrhea, unspecified (principal); F31.9 Bipolar disorder, unspecified; F20.9 Schizophrenia, unspecified; Z87.19 Personal history of other diseases of the digestive system; Z87.442 Personal history of urinary calculi
CPT/HCPCS: 36415; 80053; 81003; 84703; 85025; 87324; 87449; 99282-25

== ENCOUNTER 2017-08-30 20:14 | Emergency (ER) | payer OTHER ==
--- NOTE | 2017-08-30 20:40 | PDOC ---
Rapid Medical Evaluation Time Seen by Provider: 08/30/17 20:34 Medical Evaluation: Allergies Allergy/AdvReac Type Severity Reaction Status Date / Time metronidazole [From Flagyl] AdvReac Vomiting Verified 07/11/17 13:42 PAPER TAPE Allergy Rash Uncoded 07/11/17 13:42 raw onion Allergy Uncoded 07/11/17 13:42 08/30/17 20:36 I have performed a brief in-person evaluation of this patient. The patient presents with a chief complaint of: lower abd/suprapubic pain, N/V/D , denies vag bleeding, discharge, recent neg ct/gc early aug, OBGYN MD Gonzalez , hx of interstitial cystitis, crohn's Pertinent physical exam findings: n/a I have ordered the following: urine preg, UA, UCx The patient will proceed to the ED for further evaluation. Discharge Disposition - Diagnosis Lower abdominal pain - Referrals - Patient Instructions - Post Discharge Activity
[2017-08-30 20:41] VITALS: TEMP 98.2; BMI 34.1
--- NOTE | 2017-08-30 21:30 | PDOC ---
History of Present Illness - General History Source: Patient Exam Limitations: No Limitations - History of Present Illness Initial Comments: 08/30/17 21:41 The patient is a 37 year old female, with a significant past medical history of interstitial cystitis, IBS, hyperlipidemia, diabetes, Crohn's, kidney stones, bipolar disorder, and schizophrenia, who presents to the emergency department with suprapubic/ lower abdominal pain for approximately 2 days. The patient reports moderate to severe pain in the lower pelvis for 2 days. Patient reports her pain is worse with urination. She reports associated frequency and dysuria, but reports the pressure on urination is what exacerbates her pain. Patient reports similar pain in the bladder when her cystitis flares up. However, this is episode is both crampy and stabbing in nature. Patient reports her pain is alleviated when sitting down, and exacerbated when ambulating or standing for a long time. She denies any associated nausea, vomiting, fever, chills, hematuria , urinary incontinence, vaginal discharge, or vaginal bleeding/spotting. Patient reports her LMP was in December 2016, but states this was due to her Depo Provera shot. Allergies: Metronidazole Past Surgical History: None reported Social History: Non smoker. No ETOH or recreational drug use. OBGYN: Dr. Berrios <Elizabeth Espana - Last Filed: 08/30/17 22:43> - General History Source: Patient <Christian Maddox - Last Filed: 08/30/17 23:30> - General Chief Complaint: Pain Stated Complaint: ABD PAIN Time Seen by Provider: 08/30/17 20:34 Past History <Elizabeth Espana - Last Filed: 08/30/17 22:43> - Past Medical History Anemia: Yes Asthma: Yes Cancer: No Cardiac Disorders: No CVA: No COPD: No CHF: No Dementia: No Diabetes: Yes (NIDDM) GI Disorders: Yes (Crohn's disease, GASTROPARESIS, IBS, GERD) Disorders: Yes (kidney stones, INTERSTITIAL CYSTITIS) HTN: No Hypercholesterolemia: Yes Kidney Stones: Yes Liver Disease: No Psychiatric Problems: Yes (BIPOLAR, SCHIZOPHRENIA) Seizures: No Thyroid Disease: No - Surgical History Abdominal Surgery: Yes Appendectomy: No Cardiac Surgery: No Cholecystectomy: Yes Lung Surgery: No Neurologic Surgery: Yes (SPINAL FUSION) Orthopedic Surgery: Yes (spinal fusion 05/2011,L KNEE ARTHROSCOPY) - Immunization History Immunization Up to Date: Yes (FLU AND PNA 05/2012) - Suicide/Smoking/Psychosocial Hx Smoking Status: Yes Smoking History: Current some day smoker Have you smoked in the past 12 months: Yes Number of Cigarettes Smoked Daily: 2 If you are a former smoker, when did you quit?: 3 weeks ago Cigars Per Day: 2 Information on smoking cessation initiated: No 'Breaking Loose' booklet given: 10/26/16 Hx Alcohol Use: No Drug/Substance Use Hx: No Substance Use Type: None Hx Substance Use Treatment: No <Chrsitian Maddox - Last Filed: 08/30/17 23:30> - Past Medical History Allergies/Adverse Reactions: Allergies Allergy/AdvReac Type Severity Reaction Status Date / Time metronidazole [From Flagyl] AdvReac Vomiting Verified 08/30/17 21:06 PAPER TAPE Allergy Rash Uncoded 08/30/17 21:06 raw onion Allergy Uncoded 08/30/17 21:06 Home Medications: Ambulatory Orders Adalimumab [Humira] 40 mg SQ ASDIR 06/23/15 Azelastine HCl [Astepro] 1 - 2 spr NS BID 06/23/15 Calcium 600 mg PO DAILY 06/23/15 Fluticasone Prop 0.05% Nasal [Flonase -] 1 - 2 spray NS DAILY 06/23/15 Quetiapine Fumarate [Seroquel -] 200 mg PO AM 06/23/15 Quetiapine Fumarate [Seroquel -] 600 mg PO HS 06/23/15 Lamotrigine [LaMICtal -] 200 mg PO DAILY 05/02/16 Albuterol Sulfate Inhaler - [Ventolin Hfa Inhaler -] 1 puff IH PRN PRN 01/01/17 Atorvastatin Ca [Lipitor] 40 mg PO HS 04/09/17 Benztropine Mesylate [Cogentin] 0.5 mg PO DAILY 04/09/17 Cholecalciferol (Vitamin D3) [Vitamin D3 -] 50,000 unit PO ASDIR 04/09/17 Cyclobenzaprine HCl [Flexeril -] 10 mg PO TID 04/09/17 Diphenhydramine HCl [Benadryl -] 25 mg PO Q6H PRN 04/09/17 Escitalopram Oxalate [Lexapro -] 15 mg PO DAILY 04/09/17 Gabapentin [Neurontin] 600 mg PO QID 04/09/17 Levocetirizine Dihydrochloride [Xyzal] 10 mg PO BID 04/09/17 Multivitamins [Tab-A-Vit -] 1 tab PO DAILY 04/09/17 Nitrofurantoin Monohyd/M-Cryst [Macrobid -] 100 mg PO DAILY 04/09/17 Omeprazole/Sodium Bicarbonate [Zegerid 20mg Packet] 1 each PO DAILY 04/09/17 Oxybutynin Chloride [Ditropan -] 10 mg PO DAILY 04/09/17 Pentosan Polysulfate Sodium [Elmiron] 150 mg PO DAILY 04/09/17 Ibuprofen 800 mg PO TID #30 tablet 08/30/17 Methocarbamol [Robaxin-750] 750 mg PO TID #30 tablet 08/30/17 Review of Systems - Review of Systems Able to Perform ROS?: Yes Comments:: 08/30/17 21:42 CONSTITUTIONAL: Absent: fever, no chills, no fatigue EYES: Absent: visual changes ENT: Absent: ear pain, no sore throat CARDIOVASCULAR: Absent: chest pain, no palpitations RESPIRATORY: Absent: cough, no SOB GI: Present: lower abdominal/suprapubic pain. Absent: no nausea, no vomiting, no constipation, no diarrhea GENITOURINARY: Present: dysuria, frequency Absent: no hematuria, no vaginal discharge, no vaginal bleeding/spotting MUSCULOSKELETAL: Present: difficulty ambulating secondary to pelvic pain. Absent: back pain, no arthralgia, no myalgia SKIN: Absent: rash NEURO: Absent: headache <Espana,Giomilsy - Last Filed: 08/30/17 22:43> *Physical Exam - Vital Signs Last Vital Signs Temp Pulse Resp BP Pulse Ox 98.2 F 70 18 127/75 100 08/30/17 20:38 08/30/17 20:38 08/30/17 20:38 08/30/17 20:38 08/30/17 20:38 - Physical Exam Comments: 08/30/17 21:42 GENERAL: Well-appearing, well-nourished. No apparent distress. HEENT: Normocephalic, atraumatic. PERRL, EOM intact. CARDIOVASCULAR: Normal S1, S2. Regular rate and rhythm. PULMONARY: Clear to auscultation bilaterally. ABDOMEN: Moderate suprapubic tenderness. Soft, non-distended. EXTREMITIES: Normal ROM in all four extremities. No gross deformities. SKIN: Warm, dry. No rash NEUROLOGICAL: No focal neurological deficits. <Elizabeth Espana - Last Filed: 08/30/17 22:43> - Vital Signs Last Vital Signs Temp Pulse Resp BP Pulse Ox 98.2 F 70 18 127/75 100 08/30/17 20:38 08/30/17 20:38 08/30/17 20:38 08/30/17 20:38 08/30/17 20:38 <Christian Maddox - Last Filed: 08/30/17 23:30> ED Treatment Course - LABORATORY CBC & Chemistry Diagram: 08/30/17 21:41 08/30/17 21:41 - RADIOLOGY Radiograph Interpretation: 08/30/17 22:52 EXAM: CT Abdomen and Pelvis INTERPRETED BY: Dr. Murray REVIEWED BY: Dr. Maddox IMPRESSION: Normal CT scan of the abdomen and pelvis with no evidence of urinary tract calculi, obstructive uropathy or acute pathology. <Elizabeth Espana - Last Filed: 08/30/17 22:43> - LABORATORY CBC & Chemistry Diagram: 08/30/17 21:41 08/30/17 21:41 <Christian Maddox - Last Filed: 08/30/17 23:30> Medical Decision Making - Medical Decision Making 08/30/17 23:30 Dr. Maddox: The scribe's documentation has been prepared under my direction and personally reviewed by me in its entirery. I confirm that the note above accurately reflects all work, treatment, procedures, and medical decision making performed by me. <Christian Maddox - Last Filed: 08/30/17 23:30> *DC/Admit/Observation/Transfer - Attestations Scribe Attestion: 08/30/17 21:43 Documentation prepared by Elizabeth Espana, acting as medical apparatus model maker for Christian Maddox DO. <Elizabeth Espana - Last Filed: 08/30/17 22:43> - Discharge Dispostion Admit: No <Christian Maddox - Last Filed: 08/30/17 23:30> Diagnosis at time of Disposition: Lower abdominal pain - Discharge Dispostion Disposition: HOME Condition at time of disposition: Stable - Prescriptions Prescriptions: Ibuprofen 800 mg PO TID #30 tablet Methocarbamol [Robaxin-750] 750 mg PO TID #30 tablet - Referrals Referrals: Behzad Chadwick MD [Primary Care Provider] - Ceferino Calixto MD [Staff Physician] - - Patient Instructions Printed Discharge Instructions: DI for Abdominal Pain-Adult, DI for Pelvic Pain Additional Instructions: Please follow up with your doctor for further evaluation. Take medications as directed. Return if any problems - Post Discharge Activity
[2017-08-30] MEDS ORDERED: SODIUM CHLORIDE 1,000 ML IV STA (21:31)
[2017-08-30] MEDS ORDERED: KETOROLAC TROMETHAMINE 30 MG/1 ML VIAL IVPUSH ONE (21:31)
[2017-08-30] MEDS ORDERED: KETOROLAC TROMETHAMINE 30 MG/1 ML VIAL ONE (21:35)
[2017-08-30 21:43] LABS: URINE APPEARANCE CLEAR; URINE BILIRUBIN NEGATIVE (NEGATIVE); URINE BLOOD NEGATIVE (NEGATIVE); URINE COLOR LTYELLOW; URINE GLUCOSE (UA) NEGATIVE (NEGATIVE); URINE KETONE NEGATIVE (NEGATIVE); URINE LEUK ESTERASE TRACE (NEGATIVE); URINE NITRITE NEGATIVE (NEGATIVE); URINE PROTEIN NEGATIVE (NEGATIVE); URINE UROBILINOGEN NEGATIVE mg/dL (0.2-1.0)
[2017-08-30 21:46] LABS: URINE BACTERIA RARE /hpf (NONE SEEN); URINE RBC <1 /hpf (0-3); URINE WBC 2 /hpf (3-5)
[2017-08-30 21:54] LABS: BASOPHIL 0.7 % (0-2.0); EOSINOPHIL 0.8 % (0-4.5); MCH 30.7 pg (25.7-33.7); MCHC 33.2 g/dl (32.0-36.0); MEAN CELL VOLUME 92.5 fl (80-96); MEAN PLT VOLUME 8.6 fl (7.5-11.1); NEUTROPHILS 57.6 % (42.8-82.8); PLATELET COUNT 265 K/MM3 (134-434); RDW 13.8 % (11.6-15.6); WHITE BLOOD COUNT 10.5 K/mm3 (4.0-10.0)
[2017-08-30 22:43] LABS: ALBUMIN 3.6 g/dl (3.4-5.0); ANION GAP 5 (8-16); CALCIUM 8.5 mg/dL (8.5-10.1); CO2 27 mmol/L (21-32); CREATININE 0.8 mg/dL (0.55-1.02); GLUCOSE,RANDOM 94 mg/dL (74-106); SGOT/AST 13 U/L (15-37); SGPT/ALT 28 U/L (12-78)
[2017-08-30 22:45] LABS: ALK PHOS 69 U/L (45-117); BILIRUBIN,TOTAL 0.4 mg/dL (0.2-1.0); TOT PROT 6.6 g/dl (6.4-8.2)
[2017-08-30 23:41] VITALS: BP 117/88; PULSE 86
[2017-08-31 09:28] LABS: URINE LEUK ESTERASE Negative (NEGATIVE)
== END 2017-08-30 23:39 | disposition home or self-care (01) ==
LOC: JER 20:14
PROC: 3E0333Z Introduction of Anti-inflammatory into Peripheral Vein, Percutaneous Approach (ICD-10-PCS; principal; 2017-08-30)
DX: R10.30 Lower abdominal pain, unspecified (principal); Z87.440 Personal history of urinary (tract) infections; Z87.19 Personal history of other diseases of the digestive system; F31.9 Bipolar disorder, unspecified; F20.9 Schizophrenia, unspecified; Z87.442 Personal history of urinary calculi
CPT/HCPCS: 36415; 74176; 80053; 81003; 81015; 84703; 85025; 87086; 99283-25

== ENCOUNTER 2018-02-02 18:19 | Emergency (ER) | payer OTHER ==
[2018-02-02 18:24] VITALS: BP 117/69; PULSE 99; BMI 32.8
--- NOTE | 2018-02-02 19:59 | PDOC ---
Attending Attestation - Resident Resident Name: Christian Verduzcoson - ED Attending Attestation I have performed the following: I have examined & evaluated the patient, The case was reviewed & discussed with the resident, I agree w/resident's findings & plan, Exceptions are as noted - HPI HPI: 02/02/18 21:23 Ms Hernandez is a 38 yo F h/o DM, bipolar disorder, asthma GERD, Crohns Disease, gastroparesis, c.diff in the past, interstitial cystitis, nephrolithiasis who p/ w abdominal pain x 1 day, described as crampy/twisting, migrating, unremitting, generalized abdominal pain, with no identifiable triggers or alleviators. tolerating po. (+) nausea (-) vomiting (+) diarrhea - loose mucoid stools. Pt is followed closely by Dr Doe, has had 5 stool samples - 2 negative 3 positive, most recently c.diff positive sample is 01/21. Pt noted pain whic hworsens each time she tries to eat No fevers or chills 02/03/18 00:33 - Physicial Exam PE: 02/02/18 21:39 02/02/18 20:09 GENERAL: Awake, alert, and fully oriented, in no acute distress LUNGS: No distress, speaks full sentences, clear to auscultation bilaterally HEART: Regular rate and rhythm, normal S1 and S2, no murmurs, rubs or gallops, peripheral pulses normal and equal bilaterally. ABDOMEN: Soft, diffusely ttp, normoactive bowel sounds. No guarding, no rebound. EXTREMITIES : Normal inspection, Normal range of motion, no edema. No clubbing or cyanosis. SKIN: Warm, Dry, normal turgor, no rashes or lesions noted - Medical Decision Making 38 yo F with C.diff, specimen from January of this year (+) Pt has failed treatment in the past Pt GI doctor would like to do fecal txp in February Pt presents with worsening pain and difficulty eating due to pain Pt is refusing advanced imaging, stating that she has had multiple CT scans and fears her risk of cancer DD includes Colitis, Toxic joanne colon, other intraabdominal pathology (appendicitis, abscess ) Will do labs IV meds (pt is requesting Dilaudid) IV fluids 02/02/18 21:40 Laboratory Tests 02/02/18 02/02/18 02/02/18 20:40 20:40 20:40 WBC 10.5 H Hgb 13.1 Hct 39.4 Plt Count 316 Sodium 142 Potassium 4.1 Chloride 111 H Carbon Dioxide 27 BUN 13 Creatinine 0.8 Random Glucose 86 Serum , Qual Negative Urine Blood Ur Leukocyte Esterase Urine WBC (Auto) Urine RBC (Auto) Urine HCG, Qual 02/02/18 21:00 WBC Hgb Hct Plt Count Sodium Potassium Chloride Carbon Dioxide BUN Creatinine Random Glucose Serum , Qual Urine Blood Negative Ur Leukocyte Esterase Trace Urine WBC (Auto) 15 Urine RBC (Auto) 2 Urine HCG, Qual Negative 02/03/18 00:35 Case reviewed with pt GI doctor at [facility] Plan would be to treat pt pain, if pt pain uncontrolled she can be transferred to [facility] Pt given Morphine She has some pain but does not want to go to [facility] Pt will be discharged to home Labs sent - minimally elevated WBC, nml renal fxn, no signs of acidemia Pt does have a (+) UA, I am not comfortable giving abx as she has had so many bouts of C diff Will discharge to home Follow up with GI doctor Return to the ER for any other concerns or complaints Clinical Impression: abdominal pain, initial presentation C.diff, initial presentation
--- NOTE | 2018-02-02 20:12 | PDOC ---
History of Present Illness - General Chief Complaint: Pain Stated Complaint: ABDOMINAL PAIN Time Seen by Provider: 02/02/18 19:43 - History of Present Illness Initial Comments: 02/02/18 20:08 38 yo F with h/o DM, bipolar disorder, asthma GERD, Crohns Disease, gastroparesis, c.diff, colitis, interstitial cystitis, nephrolithiasis s/p stent placement, who p/w abdominal pain. Patient reports one day of crampy/ twisting, migrating, unremitting, generalized abdominal pain, with no identifiable triggers or alleviators. She is tolerating PO intake. Reports acute nausea without vomiting. Endorses 3 weeks of loose mucoid stools. Recent + c.dif stool sample (01/21/18). Recently evaluated at outside GI physician office (01-23-18) and is candidate for fecal transplant in setting of multiple failed oupt./inpt. antibiotic trials for C.dif.CT AP (08/30/17) unremarkable. Denies F/C, vomitting, CP, SOB, abdominal pain, BPR, diarrhea, constipation, urinary complaints, hematuria, weakness, lightheadedness, sensory changes. PMHx: as noted above. GI physician Dr. Santiago [phone] [facility]. H/ o choleycystectomy. Allergies: Metronidazole. ROS: as noted above SHx: Denies Eth, tobacco, or IVDA. Past History - Past Medical History Allergies/Adverse Reactions: Allergies Allergy/AdvReac Type Severity Reaction Status Date / Time metronidazole [From Flagyl] AdvReac Vomiting Verified 02/02/18 19:02 PAPER TAPE Allergy Rash Uncoded 02/02/18 19:02 raw onion Allergy Uncoded 02/02/18 19:02 Home Medications: Ambulatory Orders Adalimumab [Humira] 40 mg SQ ASDIR 06/23/15 Azelastine HCl [Astepro] 1 - 2 spr NS BID 06/23/15 Calcium 600 mg PO DAILY 06/23/15 Fluticasone Prop 0.05% Nasal [Flonase -] 1 - 2 spray NS DAILY 06/23/15 Quetiapine Fumarate [Seroquel -] 200 mg PO AM 06/23/15 Quetiapine Fumarate [Seroquel -] 600 mg PO HS 06/23/15 Lamotrigine [LaMICtal -] 200 mg PO DAILY 05/02/16 Albuterol Sulfate Inhaler - [Ventolin Hfa Inhaler -] 1 puff IH PRN PRN 01/01/17 Atorvastatin Ca [Lipitor] 40 mg PO HS 04/09/17 Benztropine Mesylate [Cogentin] 0.5 mg PO DAILY 04/09/17 Cholecalciferol (Vitamin D3) [Vitamin D3 -] 50,000 unit PO ASDIR 04/09/17 Escitalopram Oxalate [Lexapro -] 15 mg PO DAILY 04/09/17 Levocetirizine Dihydrochloride [Xyzal] 10 mg PO BID 04/09/17 Multivitamins [Tab-A-Vit -] 1 tab PO DAILY 04/09/17 Nitrofurantoin Monohyd/M-Cryst [Macrobid -] 100 mg PO DAILY 04/09/17 Omeprazole/Sodium Bicarbonate [Zegerid 20mg Packet] 1 each PO DAILY 04/09/17 Oxybutynin Chloride [Ditropan -] 10 mg PO DAILY 04/09/17 Pentosan Polysulfate Sodium [Elmiron] 150 mg PO DAILY 04/09/17 Cyclobenzaprine HCl [Flexeril -] 10 mg PO TID #90 tablet MDD 3 12/14/17 Diazepam [Valium] 5 mg PO BID 12/14/17 Gabapentin [Neurontin] 600 mg PO TID #90 tablet 12/14/17 Anemia: Yes Asthma: Yes Cancer: No Cardiac Disorders: No CVA: No COPD: No CHF: No Dementia: No Diabetes: Yes (NIDDM) GI Disorders: Yes (Crohn's disease, GASTROPARESIS, IBS, GERD) Disorders: Yes (kidney stones, INTERSTITIAL CYSTITIS) HTN: No Hypercholesterolemia: Yes Kidney Stones: Yes Liver Disease: No Psychiatric Problems: Yes (BIPOLAR, SCHIZOPHRENIA) Seizures: No Thyroid Disease: No - Surgical History Abdominal Surgery: Yes Appendectomy: No Cardiac Surgery: No Cholecystectomy: Yes Lung Surgery: No Neurologic Surgery: Yes (SPINAL FUSION) Orthopedic Surgery: Yes (spinal fusion 05/2011,L KNEE ARTHROSCOPY) - Immunization History Immunization Up to Date: Yes (FLU AND PNA 05/2012) - Suicide/Smoking/Psychosocial Hx Smoking Status: Yes Smoking History: Never smoked Have you smoked in the past 12 months: Yes Number of Cigarettes Smoked Daily: 2 If you are a former smoker, when did you quit?: 3 weeks ago Cigars Per Day: 2 Information on smoking cessation initiated: No 'Breaking Loose' booklet given: 10/26/16 Hx Alcohol Use: No Drug/Substance Use Hx: No Substance Use Type: None Hx Substance Use Treatment: No Review of Systems - Review of Systems Comments:: 02/02/18 20:09 GENERAL/CONSTITUTIONAL: No fever or chills. No weakness. HEAD, EYES, EARS, NOSE AND THROAT: No change in vision. No ear pain or discharge. No sore throat. CARDIOVASCULAR: No chest pain or shortness of breath RESPIRATORY: No cough, wheezing, or hemoptysis. GASTROINTESTINAL: + Abdominal pain and nausea. No vomiting, diarrhea or constipation. GENITOURINARY: No dysuria, frequency, or change in urination. MUSCULOSKELETAL: No joint or muscle swelling or pain. No neck or back pain. SKIN: No rash NEUROLOGIC: No headache, vertigo, loss of consciousness, or change in strength/ sensation. ENDOCRINE: No increased thirst. No abnormal weight change HEMATOLOGIC/LYMPHATIC: No anemia, easy bleeding, or history of blood clots. ALLERGIC/IMMUNOLOGIC: No hives or skin allergy. *Physical Exam - Vital Signs Last Vital Signs Temp Pulse Resp BP Pulse Ox 99 F 99 H 18 117/69 02/02/18 18:23 02/02/18 18:23 02/02/18 18:23 02/02/18 18:23 - Physical Exam Comments: 02/02/18 20:09 GENERAL: Awake, alert, and fully oriented, in no acute distress HEAD: No signs of trauma, normocephalic, atraumatic EYES: PERRLA, EOMI, sclera anicteric, conjunctiva clear ENT: Hearing grossly normal, nares patent, oropharynx clear without exudates. Moist mucosa NECK: Normal ROM, supple, no lymphadenopathy, JVD, or masses LUNGS: No distress, speaks full sentences, clear to auscultation bilaterally HEART: Regular rate and rhythm, normal S1 and S2, no murmurs, rubs or gallops, peripheral pulses normal and equal bilaterally. ABDOMEN: Soft, diffusely ttp, normoactive bowel sounds. No guarding, no rebound. No masses. Neg CVA ttp. EXTREMITIES : Normal inspection, Normal range of motion, no edema. No clubbing or cyanosis. SKIN: Warm, Dry, normal turgor, no rashes or lesions noted ED Treatment Course - LABORATORY CBC & Chemistry Diagram: 02/02/18 20:40 02/02/18 20:40 Medical Decision Making - Medical Decision Making 02/02/18 20:33 38 yo F with h/o DM, bipolar disorder, asthma GERD, Crohns Disease, gastroparesis, c.diff, colitis, interstitial cystitis, nephrolithiasis s/p stent placement, who p/w abdominal pain.VSS, A&Ox3. Recent + C-Dif stool specimen (01-21-19), patient to receive fecal transplant in setting of flagyl allergy and multiple failed treatments for c.dif. Will consider gastroenteritis , cystitis, nephrolithiasis, appendicitis, colitis. Will assess for electrolyte abnml, toxic or metabolic derangements,acid-base disturbances, or underlying infection. ED Course: CBC, CMP, UA, Urine Cx, HCG Maloox, Ranitidine, 02/02/18 21:27 CBC, CMP: Unremarkable UA: Neg Patient refuses abdominal CT 02/02/18 21:55 Contacted answering service for [address]. Doe [facility] [phone]. 02/02/18 22:09 Dr. William SERRATO [facility] if patient pain not controlled in ED, she can be placed in ED to ED transfer for possible admission to hospital at [facility]. 02/02/18 23:45 Patient pain improved with morphine. Stable for d/c with return precautions. *DC/Admit/Observation/Transfer Diagnosis at time of Disposition: Abdominal pain Qualifiers: Abdominal location: generalized Qualified Code(s): R10.84 - Generalized abdominal pain - Discharge Dispostion Disposition: HOME Condition at time of disposition: Stable Decision to Admit order: No - Referrals Referrals: Behzad Chadwick MD [Primary Care Provider] - - Patient Instructions Printed Discharge Instructions: DI for Abdominal Pain-Adult Additional Instructions: Please return to the emergency department with any new or worsening symptoms or concerns. Please follow up with your primary care physician within 72 hours. Please follow up with your salary and wage administrator within one week. - Post Discharge Activity - Attestations Physician Attestion: 02/02/18 20:11 I attest to the information provided in this note.
[2018-02-02] MEDS ORDERED: RANITIDINE HCL 150 MG TABLET (FP) PO ONE (20:34)
[2018-02-02] MEDS ORDERED: ACETAMINOPHEN 500 MG TABLET (FP) PO ONE (20:34)
[2018-02-02] MEDS ORDERED: MAG HYDROX/AL HYDROX/SIMETH 30 ML UNIT-DOSE CUP PO ONE (20:34)
[2018-02-02 20:52] LABS: BASO % 1.1 % (0-2.0); EOS % 1.2 % (0-4.5); HEMATOCRIT 39.4 % (32.4-45.2); HEMOGLOBIN 13.1 GM/dL (10.7-15.3); LYMPH % 38.1 % (8-40); MCH 30.8 pg (25.7-33.7); MCHC 33.3 g/dl (32.0-36.0); MEAN CELL VOLUME 92.4 fl (80-96); NEUT % 53.6 % (42.8-82.8); PLATELET COUNT 316 K/MM3 (134-434); RBC 4.26 M/mm3 (3.60-5.2); RDW 13.7 % (11.6-15.6); WHITE BLOOD COUNT 10.5 K/mm3 (4.0-10.0)
[2018-02-02] MEDS ORDERED: RANITIDINE HCL 150 MG TABLET (FP) ONE (20:52)
[2018-02-02] MEDS ORDERED: MAG HYDROX/AL HYDROX/SIMETH 30 ML UNIT-DOSE CUP ONE (20:52)
[2018-02-02] MEDS ORDERED: ACETAMINOPHEN 500 MG TABLET (FP) ONE (20:53)
[2018-02-02 21:08] LABS: HCG,QUALITATIVE URINE NEGATIVE
[2018-02-02 21:09] LABS: URINE APPEARANCE CLEAR; URINE BILIRUBIN NEGATIVE (<2.0 mg/dL); URINE COLOR YELLOW; URINE GLUCOSE (UA) NEGATIVE (NEGATIVE); URINE KETONE NEGATIVE (NEGATIVE); URINE LEUK ESTERASE TRACE (NEGATIVE); URINE NITRITE NEGATIVE (NEGATIVE); URINE PROTEIN NEGATIVE (NEGATIVE); URINE UROBILINOGEN NEGATIVE mg/dL (0.2-1.0)
[2018-02-02 21:18] VITALS: TEMP 98.9
[2018-02-02 21:18] LABS: ALK PHOS 81 U/L (45-117); ANION GAP 4 (8-16); BILIRUBIN,TOTAL 0.4 mg/dL (0.2-1.0); BLOOD UREA NITROGEN 13 mg/dL (7-18); CALCIUM 8.7 mg/dL (8.5-10.1); CHLORIDE 111 mmol/L (98-107); CO2 27 mmol/L (21-32); CREATININE 0.8 mg/dL (0.55-1.02); GLUCOSE,RANDOM 86 mg/dL (74-106); POTASSIUM 4.1 mmol/L (3.5-5.1); SGOT/AST 13 U/L (15-37); SGPT/ALT 22 U/L (12-78); SODIUM 142 mmol/L (136-145); TOT PROT 7.3 g/dl (6.4-8.2)
[2018-02-02 21:22] LABS: EPI CELLS FEW /HPF (FEW); URINE BACTERIA RARE /hpf (NONE SEEN); URINE MUCUS RARE
[2018-02-02] MEDS ORDERED: SODIUM CHLORIDE 1,000 ML IV STA ×2 (21:45)
[2018-02-02] MEDS ORDERED: morphine CARPU-JECT 4 MG/1 ML DISP.SYRIN IVPUSH ONE (22:13)
[2018-02-02] MEDS ORDERED: morphine SULFATE 4 MG/ML VIAL ONE (23:03)
== END 2018-02-03 00:07 | disposition home or self-care (01) ==
LOC: JER 18:19
PROC: 3E0337Z Introduction of Electrolytic and Water Balance Substance into Peripheral Vein, Percutaneous Approach (ICD-10-PCS; principal; 2018-02-02)
PROC: 3E033NZ Introduction of Analgesics, Hypnotics, Sedatives into Peripheral Vein, Percutaneous Approach (ICD-10-PCS; 2018-02-02)
DX: R10.84 Generalized abdominal pain (principal); E11.9 Type 2 diabetes mellitus without complications; K21.9 Gastro-esophageal reflux disease without esophagitis; F31.9 Bipolar disorder, unspecified; F20.9 Schizophrenia, unspecified; J45.909 Unspecified asthma, uncomplicated; Z87.19 Personal history of other diseases of the digestive system; Z87.448 Personal history of other diseases of urinary system; Z86.2 Personal history of diseases of the blood and blood-forming organs and certain disorders involving the immune mechanism; Z95.5 Presence of coronary angioplasty implant and graft
CPT/HCPCS: 36415; 80053; 81003; 81015; 83690; 84703; 85025; 87086; 96361; 96374; 99282-25; J7030

== ENCOUNTER 2018-09-02 08:12 | Day surgery (SDC) | payer MEDICARE, OTHER ==
[2018-08-30 17:26] VITALS: BMI 38.6
[2018-09-02] MEDS ORDERED: MIDAZOLAM HCL 2 MG/2 ML SINGLE DOSE VIAL ONE ×3 (09:41→11:04)
[2018-09-02] MEDS ORDERED: KETOROLAC TROMETHAMINE 30 MG/1 ML VIAL ONE (11:05)
--- NOTE | 2018-09-02 11:26 | OP ---
Operative Note - Note: Operative Date: 09/02/18 Pre-Operative Diagnosis: Right renal stone Operation: Right ESWL Findings: 5 mm mid pole Right renal stone Post-Operative Diagnosis: Same as Pre-op Surgeon: Ger Shanks Anesthesia: Fractional Estimated Blood Loss (mls): 0
[2018-09-02 11:37] VITALS: TEMP 97.4
[2018-09-02 15:07] VITALS: BP 110/73; PULSE 99
--- NOTE | 2018-09-22 18:16 | OP ---
DATE OF OPERATION: 09/02/2018 PREOPERATIVE DIAGNOSIS: Right renal stone. POSTOPERATIVE DIAGNOSIS: Right renal stone. PROCEDURE: Right extracorporeal shockwave lithotripsy. ATTENDING SURGEON: Shin Shanks MD ANESTHESIA: Fractional. OPERATION: The patient was brought to the operating room and placed in the supine position on the operating room table. Ultrasonography and fluoroscopy were performed. A 5-mm right renal stone was identified in the mid pole. Anesthesia and preoperative antibiotics were then administered. Shockwave lithotripsy was completed with excellent fragmentation of the stone under real-time ultrasonography and fluoroscopy. No complications were noted. DISPOSITION: Patient was to the recovery room. SHIN WILBURN M.D. [id number]
== END 2018-09-02 12:45 | disposition home or self-care (01) ==
LOC: JASU-SURG 08:12
PROVIDERS: ATTEND Urology
PROC: 0TF3XZZ Fragmentation in Right Kidney Pelvis, External Approach (ICD-10-PCS; principal; 2018-09-02 09:30)
DX: N20.0 Calculus of kidney (principal)
CPT/HCPCS: 84703

== ENCOUNTER 2018-10-27 14:57 | Emergency (ER) | payer MEDICARE, OTHER ==
[2018-10-27 15:06] VITALS: BP 124/68; PULSE 89; TEMP 98.3; BMI 39.1
--- NOTE | 2018-10-27 15:45 | PDOC ---
History of Present Illness - General Chief Complaint: Pain, Acute Stated Complaint: ABD PAIN/NAUSEA Time Seen by Provider: 10/27/18 15:10 History Source: Patient Exam Limitations: No Limitations - History of Present Illness Travel History: No Initial Comments: 10/27/18 15:40 38 y/o female presents to the emergency room with complaints of fever 100.3 yesterday. Patient also complaining of lower abdominal pain which she describes as a cramping worsened with movement. Patient denies recent travel recent illness or recent GI disorders. Patient states irregular menses but denies urinary complaints. Patient does state history of colitis and Crohn's but denies similar symptoms presenting with today. Patient also denies diarrhea which she normally has with exacerbations. Timing/Duration: reports: constant Quality: reports: mild Abdominal Pain Onset Location: reports: RLQ Pain Radiation: reports: no radiation Activities at Onset: reports: none Aggravating Factors: improves with: None Alleviating Factors: improves with: None Past History - Travel Traveled outside of the country in the last 30 days: No Close contact w/someone who was outside of country & ill: No - Past Medical History Allergies/Adverse Reactions: Allergies Allergy/AdvReac Type Severity Reaction Status Date / Time metronidazole [From Flagyl] AdvReac Vomiting Verified 10/27/18 14:59 PAPER TAPE Allergy Rash Uncoded 10/27/18 14:59 raw onion Allergy Uncoded 10/27/18 14:59 Home Medications: Ambulatory Orders Calcium 600 mg PO DAILY 06/23/15 Fluticasone Prop 0.05% Nasal [Flonase -] 1 - 2 spray NS DAILY 06/23/15 Quetiapine Fumarate [Seroquel -] 200 mg PO AM 06/23/15 Quetiapine Fumarate [Seroquel -] 600 mg PO HS 06/23/15 Lamotrigine [LaMICtal -] 200 mg PO DAILY 05/02/16 Albuterol Sulfate Inhaler - [Ventolin Hfa Inhaler -] 1 puff IH PRN PRN 01/01/17 Benztropine Mesylate [Cogentin] 0.5 mg PO DAILY 04/09/17 Escitalopram Oxalate [Lexapro -] 15 mg PO DAILY 04/09/17 Levocetirizine Dihydrochloride [Xyzal] 10 mg PO BID 04/09/17 Multivitamins [Tab-A-Vit -] 1 tab PO DAILY 04/09/17 Nitrofurantoin Monohyd/M-Cryst [Macrobid -] 100 mg PO DAILY 04/09/17 Omeprazole/Sodium Bicarbonate [Zegerid 20mg Packet] 1 each PO BID 04/09/17 Oxybutynin Chloride [Ditropan -] 10 mg PO DAILY 04/09/17 Pentosan Polysulfate Sodium [Elmiron] 150 mg PO DAILY 04/09/17 Diazepam [Valium] 5 mg PO BID 12/14/17 Cyanocobalamin [Vitamin B12 -] 1,000 mcg PO DAILY #30 tablet 06/03/18 Cyclobenzaprine HCl [Flexeril -] 10 mg PO TID #90 tablet MDD 3 06/03/18 Ergocalciferol (Vitamin D2) [Vitamin D2] 50,000 unit PO Q7D #4 capsule 06/03/18 Gabapentin [Neurontin] 600 mg PO TID #90 tablet 06/03/18 Omalizumab [Xolair -] 150 mg SQ MONTHLY 06/03/18 Pregabalin [Lyrica] 100 mg PO TID 08/01/18 Budesonide [Entocort EC] 3 mg PO TID 08/30/18 Certolizumab Pegol [Cimzia] 400 mg SQ WEEKLY 08/30/18 Hydroxychloroquine So4 [Plaquenil -] 200 mg PO BID 10/27/18 Tylenol .Regular Strength - 2 tab PO QID PRN 10/27/18 Anemia: Yes (NOT PRESENTLY) Asthma: Yes Cancer: No Cardiac Disorders: No CVA: No COPD: No CHF: No Dementia: No Diabetes: Yes (NIDDM-diet controlled) GI Disorders: Yes (Crohn's disease, GASTROPARESIS, IBS, GERD,lupus) Disorders: Yes (kidney stones, INTERSTITIAL CYSTITIS) HTN: No Hypercholesterolemia: Yes Kidney Stones: Yes Liver Disease: No Psychiatric Problems: Yes (BIPOLAR, SCHIZOPHRENIA) Seizures: No Thyroid Disease: No - Surgical History Abdominal Surgery: Yes Appendectomy: No Cardiac Surgery: No Cholecystectomy: Yes Lung Surgery: No Neurologic Surgery: Yes (SPINAL FUSION-rods n screws) Orthopedic Surgery: Yes (spinal fusion 05/2011,L KNEE ARTHROSCOPY) - Immunization History Immunization Up to Date: Yes (FLU AND PNA 05/2012) - Suicide/Smoking/Psychosocial Hx Smoking Status: Yes Smoking History: Unknown if ever smoked Have you smoked in the past 12 months: No Number of Cigarettes Smoked Daily: 2 If you are a former smoker, when did you quit?: 5 Cigars Per Day: 2 'Breaking Loose' booklet given: 10/26/16 Hx Alcohol Use: Yes (social) Drug/Substance Use Hx: No Substance Use Type: None Hx Substance Use Treatment: No Patient Lives Alone: No Lives with/in: spouse/SO Abd/GI Specific PMHX - Complaint Specific PMHX Colitis: Yes Diverticulitis: No Gall Bladder Disease: No GERD: Yes Hepatitis: No Irritable Bowel Synd (IBS): Yes Pancreatitis: Yes GI Ulcer Disease: No Review of Systems - Review of Systems Able to Perform ROS?: No Is the patient limited Citizen [place] proficient: No Constitutional: Yes: Chills, Weakness HEENTM: No: Symptoms Reported Respiratory: No: Symptoms reported Cardiac (ROS): No: Symptoms Reported ABD/GI: Yes: Abdominal cramping : No: Symptoms Reported Musculoskeletal: No: Symptoms Reported Integumentary: No: Symptoms Reported Neurological: No: Symptoms reported Hematologic/Lymphatic: No: Symptoms Reported *Physical Exam - Vital Signs Last Vital Signs Temp Pulse Resp BP Pulse Ox 98.3 F 89 18 124/68 99 10/27/18 15:05 10/27/18 15:05 10/27/18 15:05 10/27/18 15:05 10/27/18 15:05 - Physical Exam General Appearance: Yes: Nourished, Appropriately Dressed. No: Apparent Distress Female Pelvic Exam: positive: normal external exam Gastrointestinal/Abdominal: positive: Normal Bowel Sounds, Soft, Tenderness ( right suprapubic) Musculoskeletal: negative: CVA Tenderness Extremity: negative: Pedal Edema Integumentary: positive: Normal Color, Warm, Moist Neurologic: positive: Motor Strength 5/5 (ambulatory) Moderate Sedation - Procedure Monitoring Vital Signs: Procedure Monitoring Vital Signs Temperature 98.3 F 10/27/18 15:05 Pulse Rate 89 10/27/18 15:05 Respiratory Rate 18 10/27/18 15:05 Blood Pressure 124/68 10/27/18 15:05 O2 Sat by Pulse Oximetry (%) 99 10/27/18 15:05 ED Treatment Course - LABORATORY CBC & Chemistry Diagram: 10/27/18 15:53 10/27/18 15:53 Medical Decision Making - Medical Decision Making 10/27/18 15:42 chief complaint: Right lower abdominal pain associated with fever since yesterday. EXam: rt suprapubic tenderness Plan: ua, u cx, upreg, influenza, cbc, comp, lipase 10/27/18 17:16 Laboratory Tests 09/02/18 10/27/18 10/27/18 08:24 15:53 15:53 WBC 9.8 Hgb 14.1 Hct 40.8 Plt Count 257 Neutrophils % 55.4 Sodium Potassium Chloride Carbon Dioxide Anion Gap BUN Creatinine Random Glucose Calcium Total Bilirubin AST ALT Alkaline Phosphatase Total Protein Albumin Lipase Ur Specific [place] Urine Nitrite Urine HCG, Qual Negative Influenza A (Rapid) Negative Influenza B (Rapid) Negative 10/27/18 10/27/18 15:53 15:56 WBC Hgb Hct Plt Count Neutrophils % Sodium 139 Potassium 4.1 Chloride 109 H Carbon Dioxide 24 Anion Gap 7 L BUN 6 L Creatinine 0.7 Random Glucose 99 Calcium 8.8 Total Bilirubin 0.3 AST 19 ALT 35 Alkaline Phosphatase 72 Total Protein 7.4 Albumin 3.8 Lipase 100 Ur Specific [place] 1.003 L Urine Nitrite Negative Urine HCG, Qual Negative Influenza A (Rapid) Influenza B (Rapid) Pt recommended to take motrin or tylenol for pain. *DC/Admit/Observation/Transfer Diagnosis at time of Disposition: Abdominal pain - Discharge Dispostion Disposition: HOME Condition at time of disposition: Improved - Referrals Referrals: Behzad Chadwick MD [Primary Care Provider] - - Patient Instructions Printed Discharge Instructions: DI for Abdominal Pain-Adult Additional Instructions: Please take Tylenol Motrin for discomfort. Please rest and return to ED if symptoms worsen - Post Discharge Activity
[2018-10-27 16:03] LABS: URINE APPEARANCE CLEAR; URINE BILIRUBIN NEGATIVE (<2.0 mg/dL); URINE COLOR COLORLESS; URINE GLUCOSE (UA) NEGATIVE (NEGATIVE); URINE KETONE NEGATIVE (NEGATIVE); URINE LEUK ESTERASE NEGATIVE (NEGATIVE); URINE NITRITE NEGATIVE (NEGATIVE); URINE PROTEIN NEGATIVE (NEGATIVE); URINE UROBILINOGEN NEGATIVE mg/dL (0.2-1.0)
[2018-10-27 16:05] LABS: HCG,QUALITATIVE URINE Negative
[2018-10-27 16:15] LABS: BASO % 0.6 % (0-2.0); EOS % 0.6 % (0-4.5); HEMATOCRIT 40.8 % (32.4-45.2); HEMOGLOBIN 14.1 GM/dL (10.7-15.3); LYMPH % 36.3 % (8-40); MCH 30.9 pg (25.7-33.7); MCHC 34.5 g/dl (32.0-36.0); MEAN CELL VOLUME 89.8 fl (80-96); MEAN PLT VOLUME 8.2 fl (7.5-11.1); MONO % 7.1 % (3.8-10.2); NEUT % 55.4 % (42.8-82.8); PLATELET COUNT 257 K/MM3 (134-434); RBC 4.54 M/mm3 (3.60-5.2); RDW 14.5 % (11.6-15.6); WHITE BLOOD COUNT 9.8 K/mm3 (4.0-10.0)
[2018-10-27 16:46] LABS: ALBUMIN 3.8 g/dl (3.4-5.0); ALK PHOS 72 U/L (45-117); ANION GAP 7 MMOL/L (8-16); BILIRUBIN,TOTAL 0.3 mg/dL (0.2-1); BLOOD UREA NITROGEN 6 mg/dL (7-18); CALCIUM 8.8 mg/dL (8.5-10.1); CHLORIDE 109 mmol/L (98-107); CO2 24 mmol/L (21-32); CREATININE 0.7 mg/dL (0.55-1.3); GLUCOSE,RANDOM 99 mg/dL (74-106); LIPASE 100 U/L (73-393); POTASSIUM 4.1 mmol/L (3.5-5.1); SGOT/AST 19 U/L (15-37); SGPT/ALT 35 U/L (13-61); SODIUM 139 mmol/L (136-145); TOT PROT 7.4 g/dl (6.4-8.2)
== END 2018-10-27 17:29 | disposition home or self-care (01) ==
LOC: JER 14:57
DX: R10.31 Right lower quadrant pain (principal); J45.909 Unspecified asthma, uncomplicated; E78.00 Pure hypercholesterolemia, unspecified; E11.9 Type 2 diabetes mellitus without complications; F31.9 Bipolar disorder, unspecified; F20.9 Schizophrenia, unspecified; Z87.19 Personal history of other diseases of the digestive system; Z87.442 Personal history of urinary calculi; Z87.448 Personal history of other diseases of urinary system; Z86.2 Personal history of diseases of the blood and blood-forming organs and certain disorders involving the immune mechanism
CPT/HCPCS: 36415; 80053; 81003; 83690; 84703; 85025; 87086; 87186; 87804; 99282-25

== ENCOUNTER 2019-01-07 13:51 | Emergency (ER) | payer MEDICARE, OTHER ==
--- NOTE | 2019-01-07 14:09 | PDOC ---
Rapid Medical Evaluation Chief Complaint: Pain Time Seen by Provider: 01/07/19 14:05 Medical Evaluation: Allergies Allergy/AdvReac Type Severity Reaction Status Date / Time metronidazole [From Flagyl] AdvReac Vomiting Verified 10/27/18 14:59 PAPER TAPE Allergy Rash Uncoded 10/27/18 14:59 raw onion Allergy Uncoded 10/27/18 14:59 01/07/19 14:05 I did a brief in person evaluation on this patient. CC: Abd pain HPI: Pt is a 39 YO female who complains of left sided Abd pain. Pt has a hx of diverticulitis, pancreatitis and kidney stones. PE: Skin: Clear Lungs: Clear Heart:RRR Abd: soft, tender in LUQ MS: Moves all extremities without difficulty Neuro: alert Psych: appropriate affect. I have ordered: abd protocol Pt will proceed to main ED for further evaluation. Discharge Disposition - Diagnosis Abdominal pain - Referrals - Patient Instructions - Post Discharge Activity
[2019-01-07 14:10] VITALS: BP 119/70; PULSE 94; TEMP 98.6; BMI 38.6
[2019-01-07 14:42] LABS: URINE APPEARANCE CLOUDY; URINE BILIRUBIN NEGATIVE (NEGATIVE); URINE COLOR YELLOW; URINE GLUCOSE (UA) NEGATIVE (NEGATIVE); URINE KETONE NEGATIVE (NEGATIVE); URINE LEUK ESTERASE NEGATIVE (NEGATIVE); URINE NITRITE NEGATIVE (NEGATIVE); URINE PROTEIN NEGATIVE (NEGATIVE); URINE UROBILINOGEN 0.2 mg/dL (0.2-1.0)
[2019-01-07 14:50] LABS: BASO % 0.5 % (0-2.0); EOS % 1.4 % (0-4.5); HEMATOCRIT 40.1 % (32.4-45.2); HEMOGLOBIN 13.5 GM/dL (10.7-15.3); LYMPH % 52.2 % (8-40); MCH 30.3 pg (25.7-33.7); MCHC 33.7 g/dl (32.0-36.0); MEAN CELL VOLUME 89.9 fl (80-96); MEAN PLT VOLUME 8.2 fl (7.5-11.1); MONO % 4.7 % (3.8-10.2); NEUT % 41.2 % (42.8-82.8); PLATELET COUNT 300 K/MM3 (134-434); RBC 4.46 M/mm3 (3.60-5.2); RDW 13.8 % (11.6-15.6); WHITE BLOOD COUNT 10.7 K/mm3 (4.0-10.0)
[2019-01-07 15:09] LABS: ALBUMIN 3.9 g/dl (3.4-5.0); ALK PHOS 84 U/L (45-117); ANION GAP 9 MMOL/L (8-16); BILIRUBIN,TOTAL 0.3 mg/dL (0.2-1); BLOOD UREA NITROGEN 9 mg/dL (7-18); CHLORIDE 108 mmol/L (98-107); CO2 20 mmol/L (21-32); CREATININE 0.7 mg/dL (0.55-1.3); GLUCOSE,RANDOM 92 mg/dL (74-106); LIPASE 143 U/L (73-393); POTASSIUM 4.5 mmol/L (3.5-5.1); SGOT/AST 26 U/L (15-37); SGPT/ALT 31 U/L (13-61); SODIUM 137 mmol/L (136-145); TOT PROT 7.8 g/dl (6.4-8.2)
--- NOTE | 2019-01-07 16:01 | PDOC ---
History of Present Illness - General Chief Complaint: Pain Stated Complaint: abd. pain Time Seen by Provider: 01/07/19 14:05 History Source: Patient Exam Limitations: No Limitations Past History - Travel Traveled outside of the country in the last 30 days: No Close contact w/someone who was outside of country & ill: No - Past Medical History Allergies/Adverse Reactions: Allergies Allergy/AdvReac Type Severity Reaction Status Date / Time metronidazole [From Flagyl] AdvReac Vomiting Verified 10/27/18 14:59 PAPER TAPE Allergy Rash Uncoded 10/27/18 14:59 raw onion Allergy Uncoded 10/27/18 14:59 Home Medications: Ambulatory Orders Calcium 600 mg PO DAILY 06/23/15 Fluticasone Prop 0.05% Nasal [Flonase -] 1 - 2 spray NS DAILY 06/23/15 Quetiapine Fumarate [Seroquel -] 200 mg PO AM 06/23/15 Quetiapine Fumarate [Seroquel -] 600 mg PO HS 06/23/15 Lamotrigine [LaMICtal -] 200 mg PO DAILY 05/02/16 Albuterol Sulfate Inhaler - [Ventolin Hfa Inhaler -] 1 puff IH PRN PRN 01/01/17 Benztropine Mesylate [Cogentin] 0.5 mg PO DAILY 04/09/17 Escitalopram Oxalate [Lexapro -] 15 mg PO DAILY 04/09/17 Levocetirizine Dihydrochloride [Xyzal] 10 mg PO BID 04/09/17 Multivitamins [Tab-A-Vit -] 1 tab PO DAILY 04/09/17 Nitrofurantoin Monohyd/M-Cryst [Macrobid -] 100 mg PO DAILY 04/09/17 Omeprazole/Sodium Bicarbonate [Zegerid 20mg Packet] 1 each PO BID 04/09/17 Oxybutynin Chloride [Ditropan -] 10 mg PO DAILY 04/09/17 Pentosan Polysulfate Sodium [Elmiron] 150 mg PO DAILY 04/09/17 Omalizumab [Xolair -] 150 mg SQ MONTHLY 06/03/18 Budesonide [Entocort EC] 3 mg PO TID 08/30/18 Certolizumab Pegol [Cimzia] 400 mg SQ WEEKLY 08/30/18 Hydroxychloroquine So4 [Plaquenil -] 200 mg PO BID 10/27/18 Acetaminophen [Non-Aspirin Extra Strength] 500 mg PO QID PRN #100 tablet Cyanocobalamin [Vitamin B12 -] 1,000 mcg PO DAILY #30 tablet 01/02/19 Cyclobenzaprine HCl [Flexeril -] 10 mg PO TID #90 tablet MDD 3 01/02/19 Diazepam [Valium] 5 mg PO BID PRN 01/02/19 Ergocalciferol (Vitamin D2) [Vitamin D2] 50,000 unit PO Q7D #4 capsule 01/02/19 Gabapentin [Neurontin] 600 mg PO TID #90 tablet 01/02/19 Zolpidem Tartrate [Ambien] 10 mg PO DAILY 01/02/19 Anemia: Yes (NOT PRESENTLY) Asthma: Yes Cancer: No Cardiac Disorders: No CVA: No COPD: No CHF: No Dementia: No Diabetes: Yes (NIDDM-diet controlled) GI Disorders: Yes (Crohn's disease, GASTROPARESIS, IBS, GERD,lupus) Disorders: Yes (kidney stones, INTERSTITIAL CYSTITIS) HTN: No Hypercholesterolemia: Yes Kidney Stones: Yes Liver Disease: No Psychiatric Problems: Yes (BIPOLAR, SCHIZOPHRENIA) Seizures: No Thyroid Disease: No - Surgical History Abdominal Surgery: Yes Appendectomy: No Cardiac Surgery: No Cholecystectomy: Yes Lung Surgery: No Neurologic Surgery: Yes (SPINAL FUSION-rods n screws) Orthopedic Surgery: Yes (spinal fusion 05/2011,L KNEE ARTHROSCOPY) - Immunization History Immunization Up to Date: Yes (FLU AND PNA 05/2012) - Suicide/Smoking/Psychosocial Hx Smoking Status: Yes Smoking History: Never smoked Have you smoked in the past 12 months: No Number of Cigarettes Smoked Daily: 2 If you are a former smoker, when did you quit?: 5 Cigars Per Day: 2 Information on smoking cessation initiated: No 'Breaking Loose' booklet given: 10/26/16 Hx Alcohol Use: No Drug/Substance Use Hx: No Substance Use Type: None Hx Substance Use Treatment: No Review of Systems - Review of Systems Able to Perform ROS?: Yes Comments:: 01/07/19 18:48 CONSTITUTIONAL: Absent: fever, chills, diaphoresis, generalized weakness, malaise, loss of appetite HEENT: Absent: rhinorrhea, nasal congestion, throat pain, throat swelling, difficulty swallowing, mouth swelling, ear pain, eye pain, visual Changes CARDIOVASCULAR: Absent: chest pain, loss of consciousness, palpitations, irregular heart rate, peripheral edema RESPIRATORY: Absent: cough, shortness of breath, dyspnea with exertion, orthopnea, wheezing, stridor, hemoptysis GASTROINTESTINAL: Present: abdominal pain Absent: abdominal distension, nausea, vomiting, diarrhea , constipation, melena, hematochezia GENITOURINARY: Absent: dysuria, frequency, urgency, hesitancy, hematuria, flank pain, genital pain MUSCULOSKELETAL: Absent: myalgia, arthralgia, joint swelling SKIN: Absent: rash, itching, pallor HEMATOLOGIC/IMMUNOLOGIC: Absent: easy bleeding, easy bruising, lymphadenopathy, frequent infections ENDOCRINE: Absent: unexplained weight gain, unexplained weight loss, heat intolerance, cold intolerance NEUROLOGIC: Absent: headache, focal weakness or paresthesias, dizziness, unsteady gait, seizure, mental status changes, bladder or bowel incontinence PSYCHIATRIC: Absent: anxiety, depression, suicidal or homicidal ideation, hallucinations. Is the patient limited Macedonian proficient: No *Physical Exam - Vital Signs Last Vital Signs Temp Pulse Resp BP Pulse Ox 98.6 F 94 H 18 119/70 97 01/07/19 14:06 01/07/19 14:06 01/07/19 14:06 01/07/19 14:06 01/07/19 14:06 - Physical Exam Comments: 01/07/19 18:49 GENERAL: Well developed, well nourished. Awake and alert. No acute distress. HEENT: Normocephalic, atraumatic. PERRLA, EOMI. No conjunctival pallor. Sclera are non- icteric. Moist mucous membranes. Oropharynx is clear. NECK: Supple. Full ROM. No JVD. Carotid pulses 2+ and symmetric, without bruits. No thyromegaly. No lymphadenopathy. CARDIOVASCULAR: Regular rate and rhythm. No murmurs, rubs, or gallops. Distal pulses are 2+ and symmetric. PULMONARY: No evidence of respiratory distress. Lungs clear to auscultation bilaterally. No wheezing, rales or rhonchi. ABDOMINAL: TTP of the LUQ. Soft. Non-tender. Non-distended. No rebound or guarding. No organomegaly. Normoactive bowel sounds. MUSCULOSKELETAL Normal range of motion at all joints. No bony deformities or tenderness. (+) CVA tenderness on the L. EXTREMITIES: No cyanosis. No clubbing. No edema. No calf tenderness. SKIN: Warm and dry. Normal capillary refill. No rashes. No jaundice. NEUROLOGICAL: Alert, awake, appropriate. Cranial nerves 2-12 intact. No deficits to light touch and temperature in face, upper extremities and lower extremities. No motor deficits in the in face, upper extremities and lower extremities. Normoreflexic in the upper and lower extremities. Normal speech. Toes are down- going bilaterally. Gait is normal without ataxia. PSYCHIATRIC: Cooperative. Good eye contact. Appropriate mood and affect. ED Treatment Course - LABORATORY CBC & Chemistry Diagram: 01/07/19 14:24 01/07/19 14:23 - ADDITIONAL ORDERS Additional order review: Laboratory Results 01/07/19 01/07/19 01/07/19 14:23 14:23 14:23 Sodium 137 Potassium 4.5 Chloride 108 H Carbon Dioxide 20 L Anion Gap 9 BUN 9 Creatinine 0.7 Creat Clearance w eGFR 93.16 Random Glucose 92 Calcium 9.0 Total Bilirubin 0.3 AST 26 ALT 31 Alkaline Phosphatase 84 Total Protein 7.8 Albumin 3.9 Lipase 143 Urine Color Yellow Urine Appearance Cloudy Urine pH 5.0 Ur Specific [place] 1.015 Urine Protein Negative Urine Glucose (UA) Negative Urine Ketones Negative Urine Blood Negative Urine Nitrite Negative Urine Bilirubin Negative Urine Urobilinogen 0.2 Ur Leukocyte Esterase Negative Urine HCG, Qual Negative 01/07/19 14:24 RBC 4.46 MCV 89.9 MCHC 33.7 RDW 13.8 MPV 8.2 Neutrophils % 41.2 L D Lymphocytes % 52.2 H D Monocytes % 4.7 Eosinophils % 1.4 D Basophils % 0.5 Medical Decision Making - Medical Decision Making 01/07/19 18:50 Patient is a 39-year-old female with past medical history of Crohn's, lupus, kidney stones who presents to the emergency department today for left-sided abdominal pain. Patient states that the pain starts on the upper abdomen and wraps around to the left upper back. She states that this pain feels unlike her Crohn's her lupus pain. She states she took tramadol and Dilaudid at home with little relief of her symptoms. She was seen by her primary care doctor today who told her to come to the ER for evaluation and scans. Denies fevers, chills, nausea, vomiting, chest pain, difficulty breathing, frequency, urgency and hematuria. A/P: Abdominal pain/flank pain On exam patient is tender to palpation of the left upper quadrant with associated left flank tenderness. CVA tenderness positive on the left side as well. Basic labs ordered, no leukocytosis or shift. Electrolyte are grossly normal. Urine is negative for blood, unlikely stone. Given history of lupus and Crohn's we'll obtain CT of the abdomen and pelvis with oral contrast Patient currently in CT Sign out given to JAMESON Green. Patient pending scan for dispo. *DC/Admit/Observation/Transfer Diagnosis at time of Disposition: Rib pain on left side Abdominal pain Qualifiers: Abdominal location: generalized Qualified Code(s): R10.84 - Generalized abdominal pain - Discharge Dispostion Disposition: HOME Condition at time of disposition: Stable - Referrals Referrals: Behzad Chadwick MD [Primary Care Provider] - Call tomorrow Ger Shanks MD [Staff Physician] - Call tomorrow - Patient Instructions Printed Discharge Instructions: Muscle Strain Additional Instructions: its unclear the cause of pain to the rib area. likely its muscular. your labs and cat scans were normal. please follow up with your primary care doctor and your urologist as soon as possible. return to the ER if symptoms worsen. - Post Discharge Activity Forms/Work/School Notes: Back to Work
[2019-01-07] MEDS ORDERED: traMADol HCL 50 MG TABLET PO ONE (17:05)
[2019-01-07] MEDS ORDERED: traMADol HCL 50 MG TABLET ONE (19:01)
[2019-01-07] MEDS ORDERED: SODIUM CHLORIDE 1,000 ML IV STA (19:09)
[2019-01-07] MEDS ORDERED: KETOROLAC TROMETHAMINE 30 MG/1 ML VIAL IVPUSH ONE (20:45)
--- NOTE | 2019-01-07 20:46 | PDOC ---
*Physical Exam - Vital Signs Last Vital Signs Temp Pulse Resp BP Pulse Ox 98.6 F 94 H 18 119/70 97 01/07/19 14:06 01/07/19 14:06 01/07/19 14:06 01/07/19 14:06 01/07/19 14:06 - Physical Exam General Appearance: Yes: Appropriately Dressed Respiratory/Chest: positive: Chest Tender (posterior left rib area) Cardiovascular: positive: Regular Rhythm, Regular Rate Integumentary: positive: Normal Color, Dry, Warm Neurologic: positive: Fully Oriented, Alert ED Treatment Course - LABORATORY CBC & Chemistry Diagram: 01/07/19 14:24 01/07/19 14:23 - ADDITIONAL ORDERS Additional order review: Laboratory Results 01/07/19 01/07/19 01/07/19 14:23 14:23 14:23 Sodium 137 Potassium 4.5 Chloride 108 H Carbon Dioxide 20 L Anion Gap 9 BUN 9 Creatinine 0.7 Creat Clearance w eGFR 93.16 Random Glucose 92 Calcium 9.0 Total Bilirubin 0.3 AST 26 ALT 31 Alkaline Phosphatase 84 Total Protein 7.8 Albumin 3.9 Lipase 143 Urine Color Yellow Urine Appearance Cloudy Urine pH 5.0 Ur Specific Prim 1.015 Urine Protein Negative Urine Glucose (UA) Negative Urine Ketones Negative Urine Blood Negative Urine Nitrite Negative Urine Bilirubin Negative Urine Urobilinogen 0.2 Ur Leukocyte Esterase Negative Urine HCG, Qual Negative 01/07/19 14:24 RBC 4.46 MCV 89.9 MCHC 33.7 RDW 13.8 MPV 8.2 Neutrophils % 41.2 L D Lymphocytes % 52.2 H D Monocytes % 4.7 Eosinophils % 1.4 D Basophils % 0.5 - Medications Given in the ED: ED Medications Discontinued Medications Generic Name Dose Route Start Last Admin Trade Name Freq PRN Reason Stop Dose Admin Tramadol HCl 50 mg 01/07/19 17:05 01/07/19 18:30 Ultram - PO 01/07/19 17:06 50 mg ONCE ONE Administration Medical Decision Making - Medical Decision Making 01/07/19 20:40 history of c-diff . c/l left flank pain upper chest pain. has posterior rib tenderness on palpation. denies trauma and injury. will give Toradol and evaluate. *DC/Admit/Observation/Transfer Diagnosis at time of Disposition: Rib pain on left side Abdominal pain Qualifiers: Abdominal location: generalized Qualified Code(s): R10.84 - Generalized abdominal pain - Discharge Dispostion Disposition: HOME Condition at time of disposition: Stable - Referrals Referrals: Behzad Chadwick MD [Primary Care Provider] - Call tomorrow Ger Shanks MD [Staff Physician] - Call tomorrow - Patient Instructions Printed Discharge Instructions: Muscle Strain Additional Instructions: its unclear the cause of pain to the rib area. likely its muscular. your labs and cat scans were normal. please follow up with your primary care doctor and your urologist as soon as possible. return to the ER if symptoms worsen. - Post Discharge Activity Forms/Work/School Notes: Back to Work
[2019-01-07] MEDS ORDERED: KETOROLAC TROMETHAMINE 30 MG/1 ML VIAL ONE (20:51)
== END 2019-01-07 21:25 | disposition home or self-care (01) ==
LOC: JER 13:51
DX: R10.84 Generalized abdominal pain (principal); R07.81 Pleurodynia; E11.9 Type 2 diabetes mellitus without complications; F31.9 Bipolar disorder, unspecified; F20.9 Schizophrenia, unspecified; E78.00 Pure hypercholesterolemia, unspecified; Z87.19 Personal history of other diseases of the digestive system; Z87.442 Personal history of urinary calculi; Z87.09 Personal history of other diseases of the respiratory system; Z98.1 Arthrodesis status
CPT/HCPCS: 36415; 74177-TC; 80053; 81003; 83690; 84703; 85025; 99283-25; Q9967

== ENCOUNTER 2020-07-04 16:49 | Emergency (ER) | payer MEDICARE, OTHER ==
--- NOTE | 2020-07-04 17:06 | PDOC ---
History of Present Illness - General Chief Complaint: Injury Stated Complaint: ANKLE INJURY Time Seen by Provider: 07/04/20 16:59 History Source: Patient Exam Limitations: No Limitations - History of Present Illness Initial Comments: 07/04/20 17:04 HISTORY OF PRESENT ILLNESS: 40-year-old woman past medical history of Crohn's and lupus presents emergency department for evaluation of left ankle pain status post inversion injury which occurred 1 week ago. Patient reports she has been ambulatory on her ankle since then and is just returned from a water park where she noted her pain has worsened. She reports has been taken Tylenol and Motrin [id number] as directed and her last dose was at 2:00 this afternoon. No recent travel or sick contacts. PAST MEDICAL HISTORY: See HPI SURGICAL HISTORY: Denies ALLERGIES: Metronidazole, onions, paper tape REVIEW OF SYSTEMS General/Constitutional: Denies fever or chills. Denies weakness, weight change. HEENT: Denies change in vision. Denies ear pain or discharge. Denies sore throat. Cardiovascular: Denies chest pain or shortness of breath. Respiratory: Denies cough, wheezing, or hemoptysis. Gastrointestinal: Denies nausea, vomiting, diarrhea or constipation. Denies rectal bleeding. Genitourinary: Denies dysuria, frequency, or change in urination. Musculoskeletal: Denies joint or muscle swelling or pain. Denies neck or back pain. Skin and breasts: Denies rash or easy bruising. Neurologic: Denies headache, vertigo, loss of consciousness, or loss of sensation. Psychiatric: Denies depression or anxiety. Endocrine: Denies increased thirst. Denies abnormal weight change. Hematologic/Lymphatic: Denies anemia, easy bleeding, or history of blood clots. Allergic/Immunologic: Denies hives or skin allergy. Denies latex allergy. PHYSICAL EXAM General Appearance: Well-appearing, appropriately dressed. No apparent distress, no intoxication. Vascular Pulses: Dorsalis-Pedis (R): 2+, Dorsalis-Pedis (L): 2+ Musculoskeletal/Extremities: FROM of all extremities, normal capillary refill. No tenderness to extremities, pedal edema, swelling, erythema or deformity. Resolving ecchymosis present to the lateral aspect of the ankle anterior to the Achilles tendon. Neurovascularly intact. Past History - Medical History Allergies/Adverse Reactions: Allergies Allergy/AdvReac Type Severity Reaction Status Date / Time metronidazole [From Flagyl] AdvReac Vomiting Verified 07/04/20 17:02 PAPER TAPE Allergy Rash Uncoded 07/04/20 17:02 raw onion Allergy Uncoded 07/04/20 17:02 Home Medications: Ambulatory Orders Back Brace [Ultra Support] 1 each MC DAILY #1 each 02/05/20 Certolizumab Pegol [Cimzia] 400 mg SQ Q14D 02/05/20 Erythromycin Base [Erythromycin] 250 mg PO ASDIR 02/05/20 Escitalopram Oxalate [Lexapro -] 20 mg PO DAILY 02/05/20 Montelukast Na [Singulair -] 10 mg PO HS 02/05/20 Tiotropium [place] [Spiriva Respimat] 4 gm IH DAILY 02/05/20 Oxycodone HCl/Acetaminophen [Endocet 5-325 Tablet] 1 each PO Q4H PRN #28 tablet MDD 4 02/10/20 Lamotrigine [Lamictal -] 200 mg PO DAILY 03/04/20 Quetiapine Fumarate [Seroquel -] 100 mg PO DAILY 03/04/20 Quetiapine Fumarate [Seroquel -] 500 mg PO HS 03/04/20 Cyanocobalamin [Vitamin B12 -] 1,000 mcg PO DAILY #30 tablet 04/02/20 Acetaminophen 500 mg PO TID PRN #90 tablet 06/24/20 Cyclobenzaprine HCl [Flexeril 10 mg] 10 mg PO TID PRN #90 tablet 06/24/20 Ergocalciferol [Vitamin D2] 50,000 unit PO Q7D #4 capsule 06/24/20 Gabapentin [Neurontin -] 600 mg PO Q8H #90 capsule 06/24/20 Anemia: Yes (NOT PRESENTLY) Asthma: Yes Cancer: No Cardiac Disorders: No CVA: No COPD: No CHF: No Dementia: No Diabetes: Yes (NIDDM-diet controlled) GI Disorders: Yes (Crohn's disease, GASTROPARESIS, IBS, GERD,lupus) Disorders: Yes (kidney stones, INTERSTITIAL CYSTITIS) HTN: No Hypercholesterolemia: Yes Kidney Stones: Yes Liver Disease: No Psychiatric Problems: Yes (BIPOLAR, SCHIZOPHRENIA) Seizures: No Thyroid Disease: No - Surgical History Abdominal Surgery: Yes Appendectomy: No Cardiac Surgery: No Cholecystectomy: Yes Lung Surgery: No Neurologic Surgery: Yes (SPINAL FUSION-rods n screws) Orthopedic Surgery: Yes (spinal fusion 05/2011,L KNEE ARTHROSCOPY) - Immunization History Immunization Up to Date: Yes (FLU AND PNA 05/2012) - Psycho-Social/Smoking History Smoking Status: Yes Smoking History: Former smoker Have you smoked in the past 12 months: No Number of Cigarettes Smoked Daily: 2 If you are a former smoker, when did you quit?: 5 Cigars Per Day: 2 'Breaking Loose' booklet given: 10/26/16 ED Treatment Course - RADIOLOGY Radiology Studies Ordered: Category Date Time Status ANKLE & FOOT-LEFT* [RAD] Stat Radiology 07/04/20 17:02 Ordered Medical Decision Making - Medical Decision Making 07/04/20 17:05 A/P: 40-year-old woman with left ankle pain for 1 week No bony deformity, crepitus, step-offs presents palpation of the bones of the left lower leg ankle and foot. X-rays Reassess-anticipate discharge with orthopedic follow-up 07/04/20 17:33 X-rays as read by me: No acute fractures or dislocations are present. Uriel wrap Discharge home with orthopedic follow-up I discussed the physical exam findings, ancillary test results and final diagnoses with the patient. I answered all of the patient's questions. The patient was satisfied with the care received and felt comfortable with the discharge plan and treatment plan. The patient will call their primary care physician within 24 hours to arrange follow-up and will return to the Emergency Department with any new, persistent or worsening symptoms. Portions of this note have been documented using voice recognition software. As a result, errors may occur in the certified midwife process. Effort has been made to correct all grammatical and certified midwife error, but some may have been missed which may produce sporadic inaccurate certified midwife or nonsensical phrases. 07/04/20 17:35 Discharge - Discharge Information Problems reviewed: Yes Clinical Impression/Diagnosis: Left ankle sprain Qualifiers: Encounter type: initial encounter Involved ligament of ankle: unspecified ligament Qualified Code(s): S93.402A - Sprain of unspecified ligament of left ankle, initial encounter Condition: Stable Disposition: HOME - Admission No - Follow up/Referral Referrals: Luiz Herrera MD [Staff Physician] - - Patient Discharge Instructions Additional Instructions: [email or web address] You be given a referral for an orthopedist. Call to schedule appointment for reevaluation of your pain. Your emergency department visit is incomplete until you follow-up with your regular doctor. Take Tylenol 2-500 mg tablets every 6 hours as needed for pain. Take Motrin 3-200 mg tablets every 6 hours as needed for pain. These medications do not require a prescription as they are [id number]. Apply ice to affected areas to help relieve pain. Do not leave ice on for more than 20 minutes at a time. Return to the emergency department for any new or worsening symptoms. Thank you very much for choosing us to provide your emergent health care needs. - Post Discharge Activity Work/Back to School Note: Back to Work
[2020-07-04 17:08] VITALS: BP 115/59; PULSE 60; TEMP 98.6; BMI 33.3
--- OUTSIDE RECORDS SUMMARY | 2020-07-04 17:28 | XMS ---
:1980 Author Organization [facility] Care Team Providers Name Role Phone CHANTELLE GALVIN Unavailable Unavailable [facility] Unavailable Unavailable Jesus Alberto Graham MD Unavailable Unavailable Halle Graham MD Unavailable Unavailable Halle Graham MD Unavailable Unavailable Halle Graham MD Unavailable Unavailable Halle Graham MD Unavailable Unavailable Halle Graham MD Unavailable Unavailable Halle Graham MD Unavailable Unavailable DAPHNIE WATTS Unavailable Unavailable JANETT GREY Unavailable Unavailable WILMER TARIQ Unavailable Unavailable LEFKOVITZ, SHARDA Unavailable Unavailable BRIAN HALE Unavailable Unavailable Chumaceiro Unavailable Unavailable Chumaceiro Unavailable Unavailable Chumaceiro Unavailable Unavailable Chumaceiro Unavailable Unavailable Chumaceiro Unavailable Unavailable Chumaceiro Unavailable Unavailable Chumaceiro Unavailable Unavailable Chumaceiro Unavailable Unavailable MAEVE LIMON Unavailable Unavailable JOHN CRESPO Unavailable Unavailable SONNY SERRANO Unavailable Unavailable SALOMÓN MURRAY Unavailable Unavailable EMERGENCY SERVICE, X Unavailable Unavailable NIKOLAI BECERRA Unavailable Unavailable NORA CEDILLO Unavailable Unavailable GISSEL WARREN Unavailable Unavailable JONNIE OVERTON Unavailable Unavailable Re-disclosure Warning The records that you are about to access may contain information from federally- assisted alcohol or drug abuse programs. If such information is present, then the following federally mandated warning applies: This information has been disclosed to you from records protected by federal confidentiality rules (42 CFR part 2). The federal rules prohibit you from making any further disclosure of this information unless further disclosure is expressly permitted by the written consent of the person to whom it pertains or as otherwise permitted by 42 CFR part 2. A general authorization for the release of medical or other information is NOT sufficient for this purpose. The Federal rules restrict any use of the information to criminally investigate or prosecute any alcohol or drug abuse patient.The records that you are about to access may contain highly sensitive health information, the redisclosure of which is protected by Article 27-F of the [facility] Public Health law. If you continue you may haveaccess to information: Regarding HIV / AIDS; Provided by facilities licensed or operated by the [facility] Office of Mental Health; or Provided by the [facility] Office for People With Developmental Disabilities. If such information is present, then the following [facility] mandated warning applies: This information has been disclosed to you from confidential records which are protected by state law. State law prohibits you from making any further disclosure of this information without the specific written consent of the person to whom it pertains, or as otherwise permitted by law. Any unauthorized further disclosure in violation of state law may result in a fine or alf sentence or both. A general authorization for the release of medical or other information is NOT sufficient authorization for further disclosure. Allergies and Adverse Reactions Type Description Substance Reaction Status Data Source(s ) Drug allergy metronidazole metronidazole Unknown [facility] Corporati on Encounters Encounter Providers Location Date Indications Data Source(s ) Outpatient Attender: MAGGIE 06/24/2020 R10.84 [facility] SONNY LeónAdmitter: 03:40:00 PM Health Care SONNY SERRANOReferrer: SONNY SERRANO R10.84 Outpatient Attender: MAGGIE 06/22/2020 11:21:00 R10.84 [facility] SONNY LeónAdmitter: EDT Health C are SONNY SERRANOReferrer: SONNY SERRANO R10.84 Outpatient Attender: SJMC9 HHHVCC 06/21/2020 03:44:04 PM [facility] Patient admitted. Attender: Behzad 06/18/2020 12:00:00 AM EDT [facility] ([facility], ) Office Attender: Behzad 06/18/2020 12:00:00 AM EDT [facility] ([facility], ) Office Emergency Attender: GEOFFREY 05/31/2020 05:41:00 [facility] MANIANAttender: EMERGENCY PM EDT [facility] SERVICE, XAdmitter: BRIAN Scott Attender: Behzad 04/19/2020 12:00:00 AM EDT [facility] ([facility], ) Office Attender: Behzad 04/19/2020 12:00:00 AM EDT [facility] ([facility], ) Office Attender: Behzad 04/19/2020 12:00:00 AM EDT [facility] ([facility], ) Office Attender: Behzad 04/19/2020 12:00:00 AM EDT [facility] ([facility], ) Office Outpatient Attender: SJ9 [facility]FORMERLY [facility] 04/17/2020 11:29:39 AM I [facility] Patient admitted. Emergency Attender: MARCIANO 04/07/2020 STOMACH PAIN We [facility] JAMESAttender: 12:34:00 PM EDT [facility] EMERGENCY SERVICE, Corpor ation XAdmitter: WILMER TARIQ STOMACH PAIN Attender: Behzad 03/18/2020 12:00:00 AM EDT [facility] ([facility], ) Office Attender: Behzad 03/18/2020 12:00:00 AM EDT [facility] ([facility], ) Office Outpatient Attender: HERNAN 03/09/2020 06:00:00 K50.90 [facility] CHENdmitter: AAYUSH CALDERA EDT Health Care ZVIReferrer: NIKOLAI BECERRA orporation K50.90 Outpatient Attender: HERNAN 02/26/2020 06:00:00 K50.90 [facility] UPMCdmitter: VERENICE, AM EDT Health Care ZVIReferrer: NIKOLAI BECERRA orporation K50.90 Outpatient Attender: HERNAN 02/18/2020 06:00:00 K50.90 [facility] UPMCdmitter: LEFKOVITZ, AM EDT Health Care ZVIReferrer: NIKOLAI BECERRA orporation K50.90 Outpatient Attender: GLENIS, 01/19/2020 [facility] DESMONDAdmitter: GLENIS, 12:14:00 PM EDT [facility] Care Corporati on Outpatient Attender: KELVIN, 12/08/2019 [facility] JULIETAdmitter: MUSHI, 12:46:00 PM EDT [facility] Care Corporati on Outpatient Attender: DEEDEEI, 12/01/2019 [facility] JULIETAdmitter: MUSHI, 12:47:00 PM EDT [facility] Corporati on Emergency Attender: STEFANIE, 11/30/2019 [facility] 11:[facility]00 PM EDT OPENED [facility] EMERGENCY SERVICE, Care C orporation XAdmitter: DAPHNIE WATTS C-SECT INCISION OPENED Inpatient Attender: MAMADOU 11/18/2019 08:10:00 REPEAT [facility] NORA Bettina.Admitter: AM EST - 11/21/2019 Health Care CEDILLO NORA SLynda 08:28:00 PM EST Co rporation REPEAT Outpatient Attender: MAMADOU, 11/18/2019 07:02:00 REPEAT [facility] NORA S.Admitter: AM EST Health Care CEDILLO NORA [employer] Corpor[employer] tion REPEAT Outpatient Attender: GLENIS, 11/18/2019 06:00:00 O34.21 [facility] FoundationONDAdmitter: GLENIS, AM EST H ealt Care DESMONDReferrer: Marlin GALVIN ormirtha CHANTELLE O34.21 Outpatient Attender: GLENIS 11/14/2019 06:00:00 [facility] DESMONDAdmitter: GLENIS AM EST H ealt Care CHANTELLE Corporation Outpatient Attender: Jesus Alberto Graham 11/08/2019 08:59:00 FLU ID [facility] MDAdmitter: Jesus Alberto Graham PM EST Health Care MDReferrer: Jesus Alberto Graham [facility] FLUID Outpatient Attender: GLENIS, 11/07/2019 12:32:00 FV [facility] DESMONDAdmitter: GLENIS, PM EST H ealt Care CHANTELLE Corporation FV Outpatient Attender: SJ9 [facility] 11/04/2019 11:55:37 AM GSI [facility] EST [facility] Patient admitted. Outpatient Attender: Jesus Alberto Graham 10/31/2019 03:06:00 HEA DACHE [facility] MDAttender: ASHLY, PM EST He alth Care MILJANAdmitter: Jesus Alberto Co rproberta Graham MD HEADACHE Outpatient Attender: GLENIS 10/31/2019 12:17:00 [facility] DESMONDAdmitter: GLENIS, PM EST H ealth Care CHANTELLE Corporation Outpatient Attender: GLENIS, 10/24/2019 06:00:00 [facility] DESMONDAdmitter: GLENIS, AM EST H ealth Care CHANTELLE PredicSis Outpatient Attender: JONNIE OVERTON 10/23/2019 06:00:00 O 09.93 [facility] A.Admitter: TIAN, AM EST Heal th Care JONNIE MelgarReferrer: Corpor ation JOHN CRESPO O09.93 Outpatient Attender: KELVIN, 10/21/2019 03:28:00 [facility] JULIETAdmitter: KELVIN, PM EST He alth Care JULIETReferrer: KELVIN Co rporation GISSEL Outpatient Attender: KELVIN, 10/21/2019 09:57:00 [facility] GLENIS[facility] AM EST [facility] Marlin GREY-DOANLDOAdmitter: GISSEL WARREN [place] Outpatient Attender: 10/14/2019 39 WEEKS [facility] EMERGENCY SERVICE, 07:24:00 AM EST CONSTIPATION Health Care XAttender: Corporation NORA CEDILLOAdmitter: NORA CEDILLO 39 WEEKS CONSTIPATION Outpatient Attender: 09/24/2019 [facility], 08:52:00 PM EST VOMITING Co [facility] Health JOSEAdmitter: Care Corpor ation SALOMÓN MURRAY ABDOMINAL PAIN VOMITING Emergency Attender: 09/24/2019 [facility]-MINDY, 04:57:00 PM EST VOMITING Co [facility] JOSEAttender: EMERGENCY C are Corporation SERVICE, XAdmitter: SALOMÓN MURRAY ABDOMINAL PAIN VOMITING Immunizations Vaccine Date Status Description Data Source(s) New in 2011. IIV4 06/18/2020 12:00:00 completed [place] PARVEEN ([facility], ) Medications Medication Brand Start Product Dose Route Administrative Pharmacy [facility] Indications Reaction Description Data Name Date Form Instructions Instructions Source(s) lamotrigine LaMICt .0 Oral active NE TSMART 200 MG Oral al 2020 Table (The Tablet 04:00: t Guidance [Lamictal] 00 AM [facility]) quetiapine SEROqu .0 Oral active NET SMART 400 MG Oral el 2020 Table (The Tablet 04:00: t Guidance [Seroquel] 00 AM [facility]) Escitalopra Lexapr .0 Oral active NE TSMART m 20 MG o 2020 Table (The Oral Tablet 04:00: t Guidan ce [Lexapro] 00 AM [facility]) Diazepam 5 Valium .0 Oral active NET SMART MG Oral 2020 Table (The Tablet 04:00: t Guidance [Valium] 00 AM [facility]) quetiapine SEROqu .0 Oral active NET SMART 100 MG Oral el 2020 Table (The Tablet 04:00: t Guidance [Seroquel] 00 AM [facility]) quetiapine SEROqu .0 Oral active NET SMART 100 MG Oral el 2020 Table (The Tablet 04:00: t Guidance [Seroquel] 00 AM [facility]) Escitalopra Lexapr .0 Oral active NE TSMART m 20 MG o 2020 Table (The Oral Tablet 04:00: t Guidan ce [Lexapro] 00 AM [facility]) lamotrigine LaMICt .0 Oral active NE TSMART 200 MG Oral al 2020 Table (The Tablet 04:00: t Guidance [Lamictal] 00 AM [facility]) quetiapine SEROqu .0 Oral active NET SMART 400 MG Oral el 2020 Table (The Tablet 04:00: t Guidance [Seroquel] 00 AM [facility] f EDT [facility]) Diazepam 5 Valium 1.0 Oral active NET SMART MG Oral 2020 Table (The Tablet 04:00: t Guidance [Valium] 00 AM Center of EDT [facility]) certolizuma CIMZIA CIMZIA MEDGEN ([facility] 200 :98748 2019 ed Ming's MG 5 12:00: Medical, Injection 00 AM PC) [Cimzia] EDT CIMZIA:7950 85 certolizuma CIMZIA CIMZIA MEDGEN ([facility] 200 :32006 2019 ed Ming's MG 5 12:00: Medical, Injection 00 AM PC) [Cimzia] EDT CIMZIA:7950 85 Dilaudid Dilaud 04/07/ 0.5 UNK active Dilaudid [facility] (Hy id (Hy 2020 mg (Hydromorpho r Cou nty 05:01: ne) [facility] 29 PM Injection Care EDT 0.5 mg IVPB Corporat io n Medication administered onsite Dilaudid Dilaudid 04/07/2020 0.5 UNK active Dil audid [place] (Hy (Hy 02:50:21 PM mg (Hydromorphon e) [facility] EDT Injection 0.5 mg [facility] Care IVPB Corporation Medication administered onsite Zofran Zofran 04/07/2020 4 UNK active Zofran [place] (Ondansetron) (Ondansetron) 02:33:22 PM mg (Ondansetron) [facility] EDT Oral 4 mg NGT Health Care Corporation Medication administered onsite MORphine MORphine 04/07/2020 6 mg UNK active MOR phine [place] Sulfate Inj Sulfate Inj 02:27:16 PM Sulfate [facility] EDT Injection 6 Care mg IM Corporation Medication administered onsite Zofran Zofran 04/07/2020 4 mg UNK active Zofran 4mg/2mL [place] 4mg/2mL 4mg/2mL 01:25:47 PM (Ondans etron) [facility] (Onda (Onda EDT Injection 4 mg Car e IVP Corporation Medication administered onsite 0.9% NaCl 0.9% NaCl 04/07/2020 1000 mL UNK active 0.9% [place] IV IV 01:25:37 PM NaCl IV Count y Health EDT 1000 mL; Care IV rate: Corporation 1000 mL/hr Medication administered onsite lamotrigine LaMICtal 03/29/2020 1.0 Oral active NETSMART (The 200 MG Oral 04:00:00 AM Tablet Guidance Tablet EDT Center of [Lamictal] [facility]) Diazepam 5 MG Valium 03/29/2020 1.0 Oral active NETSMART (The Oral Tablet 04:00:00 AM Tablet Guidance [Valium] EDT [facility]) quetiapine 100 SEROquel 03/29/2020 1.0 Oral active NETSMART (The MG Oral Tablet 04:00:00 AM Tablet Guidance [Seroquel] EDT [facility]) Escitalopram Lexapro 03/29/2020 1.0 Oral active NETSMART (The 20 MG Oral 04:00:00 AM Tablet Guidance Tablet EDT Center of [Lexapro] [facility]) quetiapine 400 SEROquel 03/29/2020 1.0 Oral active NETSMART (The MG Oral Tablet 04:00:00 AM Tablet Guidance [Seroquel] EDT [facility]) Diazepam 5 MG Valium 03/01/2020 1.0 Oral active NETSMART (The Oral Tablet 04:00:00 AM Tablet Guidance [Valium] EDT [facility]) Escitalopram Lexapro 03/01/2020 1.0 Oral active NETSMART (The 20 MG Oral 04:00:00 AM Tablet Guidance Tablet EDT Center of [Lexapro] [facility]) lamotrigine LaMICtal 03/01/2020 ORAL active NETSMART (The 200 MG Oral 200 MG 04:00:00 AM Guidance Tablet Oral EDT Center of [Lamictal] [facility]) Escitalopram Lexapro 20 03/01/2020 ORAL active NETSMART (The 20 MG Oral MG Oral 04:00:00 AM Guidance Tablet Tablet EDT Center of [Lexapro] [facility]) quetiapine 400 SEROquel 03/01/2020 ORAL active NETSMART (The MG Oral Tablet 400 MG 04:00:00 AM Guidance [Seroquel] Oral EDT Center of [facility]) Diazepam 5 MG Valium 5 03/01/2020 ORAL active NETSMART (The Oral Tablet MG Oral 04:00:00 AM Guidance [Valium] Tablet EDT [facility]) lamotrigine LaMICtal 03/01/2020 1.0 Oral active NETSMART (The 200 MG Oral 04:00:00 AM Tablet Guidance Tablet EDT Center of [Lamictal] [facility]) quetiapine 100 SEROquel 03/01/2020 ORAL active NETSMART (The MG Oral Tablet 100 MG 04:00:00 AM Guidance [Seroquel] Oral EDT Center of [facility]) quetiapine 400 SEROquel 03/01/2020 1.0 Oral active NETSMART (The MG Oral Tablet 04:00:00 AM Tablet Guidance [Seroquel] EDT [facility]) quetiapine 100 SEROquel 03/01/2020 1.0 Oral active NETSMART (The MG Oral Tablet 04:00:00 AM Tablet Guidance [Seroquel] EDT [facility]) Diazepam 5 MG Valium 5 02/02/2020 ORAL active NETSMART (The Oral Tablet MG Oral 04:00:00 AM Guidance [Valium] Tablet EDT [facility]) quetiapine 400 SEROquel 01/28/2020 ORAL active NETSMART (The MG Oral Tablet 400 MG 04:00:00 AM Guidance [Seroquel] Oral EDT Center of [facility]) lamotrigine LaMICtal 01/28/2020 ORAL active NETSMART (The 150 MG Oral 150 MG 04:00:00 AM Guidance Tablet Oral EDT Center of [Lamictal] [facility]) Escitalopram Lexapro 20 01/28/2020 ORAL active NETSMART (The 20 MG Oral MG Oral 04:00:00 AM Guidance Tablet Tablet EDT Center of [Lexapro] [facility] r) Hydroxyzine Vistaril 01/13/2020 ORAL active NETSMART (The Pamoate 25 MG 25 MG Oral 04:00:00 AM Guidance Oral Capsule Capsule EDT Cent er of [Vistaril] [facility]) Escitalopram Lexapro 20 01/05/2020 ORAL active NETSMART (The 20 MG Oral MG Oral 04:00:00 AM Guidance Tablet Tablet EDT Center of [Lexapro] [facility] r) quetiapine 300 SEROquel 01/05/2020 ORAL active NETSMART (The MG Oral Tablet 300 MG 04:00:00 AM Guidance [Seroquel] Oral EDT Center of Tablet [place]) lamotrigine LaMICtal 01/05/2020 ORAL active NETSMART (The 100 MG Oral 100 MG 04:00:00 AM Guidance Tablet Oral EDT Center of [Lamictal] Tablet [facility]) Escitalopram Lexapro 20 12/15/2019 ORAL active NETSMART (The 20 MG Oral MG Oral 04:00:00 AM Guidance Tablet Tablet EDT Center of [Lexapro] [facility] r) Bactrim DS 12/01/2019 999 MG UNK completed B actrim [place] 800-160 MG 02:18:15 AM DS Co [facility] Oral Tab EDT 800-160 Care MG Oral Corporation Tablet TAKE 1 TABLET BY MOUTH TWICE A DAY Dispense : 14 Bactrim DS 12/01/2019 999 MG UNK completed B actrim [place] 800-160 MG 02:18:15 AM DS Co [facility] Oral Tab EDT 800-160 Care MG Oral Corporation Tablet TAKE 1 TABLET BY MOUTH TWICE A DAY Dispense : 14 Bactrim Bactrim 12/01/2019 1 UNK active Bactri m [place] 800mg/160mg 800mg/160m 02:15:02 AM tablet 800mg/16 [facility] g EDT 0mg Care (Sulfame Corporation thoxazol e/Trimet hoprim) DS Oral 1 tablet PO Medication administered onsite Escitalopram 20 Lexapro 20 07/14/2019 ORAL active NETSMART (The MG Oral Tablet MG Oral 04:00:00 AM Guidance Center [Lexapro] Tablet EDT of [facility]) Escitalopram 20 Lexapro 20 06/09/2019 ORAL completed NETSMART (The MG Oral Tablet MG Oral 04:00:00 AM Guidance Center [Lexapro] Tablet EDT of [facility]) Insurance Providers Payer name Policy type Policy ID Covered Covered constitution party's Policy P nabil / Coverage constitution party ID relationship to [place] Inf ormation type holliday YADY [id number] SP [id number] MEDICARE ADV PLAN MEDICAID [id number] SP [id number] AL MEDICARE [id number] 1 [id number] [place] [id number] PART B [facility] MEDICAID OF [id number] [facility] [id number] [place] UN[place] UNK UNK UNK UNK UNK UNK UNK UNK YADY [id number] SP [id number] MEDICARE ADV PLAN UNK UNK UNK UNK UNK UNK UNK UNK UNK MEDICAID [id number] SP [id number] MEDICAID [id number] SP [id number] [facility]LY [facility], [facility] [id number] SP [id number] MEDICARE Problems, Conditions, and Diagnoses Code Display Name Description Problem Type Effective Data Sour ce(s) Dates Z00.00 Encounter for ENCOUNTER FOR Problem 04/19/2020 [facility] ( [facility] adult GENERAL ADULT 12:00:00 AM Ming's medical examination MEDICAL EXAMINATION EDT Medical, ) without abnormal WITHOUT ABNORMAL findings FINDINGS Z00.00 Encounter for ENCOUNTER FOR Problem 04/19/2020 [facility] ( [facility] adult GENERAL ADULT 12:00:00 AM Ming's medical examination MEDICAL EXAMINATION EDT Medical, ) without abnormal WITHOUT ABNORMAL findings FINDINGS J06.9 Acute upper ACUTE UPPER Problem 01/13/2020 [facility] (St respiratory RESPIRATORY 12:00:00 AM Ming's infection, INFECTION, EDT Medical, PC) unspecified UNSPECIFIED J06.9 Acute upper ACUTE UPPER Problem 01/13/2020 [facility] ([address] respiratory RESPIRATORY 12:00:00 AM Ming's infection, INFECTION, EDT Medical, PC) unspecified UNSPECIFIED J06.9 Acute upper ACUTE UPPER Problem 01/13/2020 MED[facility] (St respiratory RESPIRATORY 12:00:00 AM Ming's infection, INFECTION, EDT Medical, PC) unspecified UNSPECIFIED Z23 Encounter for ENCOUNTER FOR Problem 08/04/2019 MEDGEN ( St immunization IMMUNIZATION 12:00:00 AM Ming's EST Medical, ) Z23 Encounter for ENCOUNTER FOR Problem 08/04/2019 MEDGEN ( St immunization IMMUNIZATION 12:00:00 AM Ming's EST Medical, ) Z23 Encounter for ENCOUNTER FOR Problem 08/04/2019 MEDGEN ( St immunization IMMUNIZATION 12:00:00 AM Ming's EST Medical, ) R10.84 Generalized GENERALIZED Diagnosis 06/24/2020 [place] abdominal pain ABDOMINAL PAIN 03:40:00 PM Count [facility] EDT Care PredicSis Z53.21 Procedure and PROC/TRTMT NOT CRD Diagnosis 05/31/2020 [facility] treatment not OUT D/T PT LV BEF 05:41:00 PM Cou [facility] carried out due to SEEN BY [facility] EDT Care patient leaving [facility] Corporati on prior to being seen by health care provider R51 Headache HEADACHE Diagnosis 05/31/2020 [place] 05:41:00 PM [facility] [employer] Eletrog[employer]es R10.9 Unspecified UNSPECIFIED Diagnosis 05/31/2020 [place] abdominal pain ABDOMINAL PAIN 05:41:00 PM [facility] EDT Care PredicSis R19.7 Diarrhea, DIARRHEA, Diagnosis 05/31/2020 [place] unspecified UNSPECIFIED 05:41:00 PM [facility] [employer] [place] Z88.8 Allergy status to ALLERGY STATUS TO Diagnosis 04/07/2020 [place] other drugs, OTH DRUG/MEDS/BIOL 12:34:00 PM Cou nt Health medicaments and SUBST STATUS EDT [facility] [employer] substances status Z98.1 Arthrodesis status ARTHRODESIS STATUS Diagnosis 0 [place] 12:34:00 PM [facility] [employer] [place] F25.9 Schizoaffective SCHIZOAFFECTIVE Diagnosis 04/07/2020 [place] mike disorder, DISORDER, 12:34:00 [facility] unspecified UNSPECIFIED [employer] E[employer]es M32.9 Systemic lupus SYSTEMIC LUPUS Diagnosis 04/07/2020 [facility] erythematosus, ERYTHEMATOSUS, 12:34:00 PM [facility] unspecified UNSPECIFIED [employer] Care PredicSis K31.84 Gastroparesis GASTROPARESIS Diagnosis 04/07/2020 [facility] 12:34:00 PM [facility] [employer] Care PredicSis E11.9 Type 2 diabetes TYPE 2 DIABETES Diagnosis 04/07/2020 [place] mellitus without MELLITUS WITHOUT 12:34:00 PM [facility] complications COMPLICATIONS EDT Care PredicSis J45.909 Unspecified asthma, UNSPECIFIED ASTHMA, Diagnosis 020 [place] uncomplicated UNCOMPLICATED 12:34:00 PM [facility] [employer] [place] F31.9 Bipolar disorder, BIPOLAR DISORDER, Diagnosis 04/07/2020 [place] unspecified UNSPECIFIED 12:34:00 PM [facility] [employer]es K50.90 Crohn's disease, CROHN'S DISEASE, Diagnosis 04/07/2020 [facility] unspecified, UNSPECIFIED, 12:34:00 PM On License Of [facility] alth without WITHOUT EDT Care complications COMPLICATIONS Corporat ion R10.31 Right lower RIGHT LOWER Diagnosis 04/07/2020 [place] quadrant pain QUADRANT PAIN 12:34:00 PM [facility] EDT Care Corporation R10.13 Epigastric pain EPIGASTRIC PAIN Diagnosis 04/07/2020 [place] 12:34:00 PM [facility] EDT Care Corporation Z39.2 Encounter for ENCOUNTER FOR Diagnosis 01/19/2020 [facility] routine ROUTINE 12:14:00 PM [facility] follow-up FOLLOW-UP EDT Care Corporation 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 PSYCHOSIS Diagnosis [address] [place] [address] 11:41:00 PM [facility] EDT Care Corporation Z88.1 Allergy status to ALLERGY STATUS TO Diagnosis 11/30/2019 [place] other antibiotic OTHER ANTIBIOTIC 11:41:00 PM [facility] agents status AGENTS STATUS EDT Care Corporation O24.13 Pre-existing type 2 PRE-EXISTING TYPE [address] [place] [address] diabetes mellitus, DIABETES MELLITUS, 11:41:00 PM [facility] in the puerperium IN THE PUERPERIUM EDT Care Corporation E11.43 Type 2 diabetes TYPE 2 DIABETES W Diagnosis 11/30/2019 [facility] mellitus with DIABETIC AUTONOMIC 11:41:00 PM [facility] hospital diabetic autonomic (POLY)NEUROPATHY EDT Care (poly)neuropathy Corporat ion F25.0 Schizoaffective SCHIZOAFFECTIVE Diagnosis 11/30/2019 [place] disorder, bipolar DISORDER, BIPOLAR 11:41:00 [facility] type TYPE EDT Care Corporation O99.345 Other mental OTHER MENTAL Diagnosis 11/30/2019 [facility] r disorders DISORDERS 11:41:00 PM [facility] complicating the COMPLICATING THE EDT Ca re puerperium PUERPERIUM Corporation O99.63 Diseases of the DISEASES OF THE Diagnosis 11/30/2019 [place] digestive system DIGESTIVE SYSTEM 11:41:00 PM [facility] complicating the COMPLICATING THE EDT Ca re puerperium [employer] O99.53 Diseases of the DISEASES OF THE Diagnosis 11/30/2019 [place] respiratory system RESP SYS 11:41:00 PM Count y Health complicating the COMPLICATING THE EDT Ca re puerperium [employer]ERPER[employer] Corporation O90.0 Disruption of DISRUPTION OF Diagnosis 11/30/2019 [facility] delivery DELIVERY 11:41:00 PM [facility] wound WOUND EDT [facility] O34.13 Maternal care for MATERNAL CARE FOR Diagnosis 11/21/2019 [place] benign tumor of BENIGN TUMOR OF 08:28:00 PM [facility] nty Health corpus uteri, third CORPUS UTERI, THIRD EST Care trimester [employer] Z30.2 Encounter for ENCOUNTER FOR Diagnosis 11/21/2019 [facility] sterilization STERILIZATION 08:28:00 PM [facility] O99.62 Diseases of the DISEASES OF THE Diagnosis 11/21/2019 [place] digestive system DIGESTIVE SYSTEM 08:28:00 PM [facility] complicating COMPLICATING EST Care childbirth CHILDBIRTH [facility] Z3A.38 38 weeks gestation 38 WEEKS GESTATION Diagnosis 0 [place] of OF 08:28:00 PM [facility] EST [facility] O99.344 Other mental OTHER MENTAL Diagnosis 11/21/2019 [facility] r disorders DISORDERS 08:28:00 [facility] complicating COMPLICATING EST Care childbirth CHILDBIRTH Corporation Z37.0 Single live SINGLE LIVE Diagnosis 11/21/2019 [place] 08:28:00 PM [facility] O75.82 Onset (spontaneous) ONSET LABOR 37-39 Diagnosis 0 [place] of labor after 37 WEEKS, W [facility] of (PLANNED) EST Care gestation but SECTION Corporation before 39 completed weeks gestation, with delivery by (planned) section F31.89 Other bipolar OTHER BIPOLAR Diagnosis 11/21/2019 [facility] disorder DISORDER 08:28:00 PM [facility] O24.12 Pre-existing type 2 PRE-EXISTING TYPE 2 Diagnosis 020 [place] diabetes mellitus, DIABETES MELLITUS, 08:28:00 [facility] in childbirth IN CHILDBIRTH EST Care [facility] Z80.49 Family history of FAMILY HISTORY OF Diagnosis 11/08/2019 [place] malignant neoplasm MALIGNANT NEOPLASM 08:59:00 PM [facility] of other genital OF OTHER GENITAL EST Ca re organs ORGANS Corporation Z3A.37 37 weeks gestation 37 WEEKS GESTATION Diagnosis 0 [place] of OF 08:59:00 PM [facility] Care PredicSis O47.1 False labor at or FALSE LABOR AT OR Diagnosis 11/08/2019 [place] after 37 completed AFTER 37 COMPLETED 08:59:00 PM [facility] weeks of gestation WEEKS OF GESTATION EST Care PredicSis Z87.42 Personal history of PERSONAL HISTORY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 cholecystectom Physician: guanako. There is SAPPHIRE posterior ANAHY fusion of the L5-S1

level with Exam: vertical rods ABDOMEN WITH and pedicle UPRIGHT screws. There 11/21/2019 is dilatation 02:01 of small loops of bowel,

<br which can be /> seen in HISTORY: Rule setting of out SBO ileus versus versus ileus. developing small bowel

obstruction. PROCEDURE: No free air. Frontal The lung bases radiographs are clear. of the IMPRESSION: abdomen. Dilatation of small loops

of bowel which COMPARISON: can be seen in Radiograph of setting of the abdomen ileus versus dated developing 03/04/2018. small bowel obstruction

which, FINDINGS: recommend follow up with

cross-sectiona The patient l imaging.. is post cholecystecto Resident my. There is Radiologist: posterior Lilibeth Romano MD fusion Resident
Radiologist of the L5-S1 Attending level with Radiologist: vertical rods Pranav Brewer and pedicle MD screws. There Finalizing Radiologist:
is Pranav Brewer dilatation of MD small loops Transcribed of bowel, Date: which can be 11/21/2019 seen in 12:03 setting Finalized
Date: of ileus 11/21/2019 versus 12:28 developing small bowel obstruction. No free air.
The lung bases are clear.

IMPRESSION:

Dilatation of small loops of bowel which can be seen in setting
of ileus versus developing small bowel obstruction which, recommend
follow up with cross-section al imaging..

Resident Radiologist: Lilibeth Romano MD Resident Radiologist
Attending Radiologist: Pranav Brewer MD
Finalizing Radiologist: Pranav Brewer MD
Transcribed Date: 11/21/2019 12:03
Finalized Date: 11/21/2019 12:28

</t d> ID Date Data Source [id number] 11/19/2019 07:37:00 AM EST [facility] [id number] Corporation Name Value Range Interpretation Description Data Sup porting Code Source(s) Document(s ) Erythrocytes 3.06 m/mm3 3.80-5 <td> [place] [#/volume] in .10 11/19/2019 [facility] Blood m/mm3 07:37</td><td> Health Care RBC Corporation </td><td><para graph styleCode="Bill d"> 3.06 L </paragraph><b r/> (3.80-5.10) m/mm3 </td> Leukocytes 15.5 k/mm3 4.5-10 <td> [place] [#/volume] in .8 11/19/2019 [facility] Blood by k/mm3 07:37</td><td> Health Care Automated count WBC Corporation </td><td><para graph styleCode="Bill d"> 15.5 H </paragraph><b r/> (4.5-10.8) k/mm3 </td> Erythrocyte 29.4 pg 27.0-3 <td> [place] mean 1.5 pg 11/19/2019 [facility] corpuscular 07:37</td><td> Health Care hemoglobin MCH </td><td> Corporation [Entitic mass] by Automated 29.4 count
(27.0-31.5) pg </td> Hemoglobin 9.0 g/dL 11.6-1 <td> [place] [Mass/volume] 5.0 11/19/2019 [facility] in Blood g/dL 07:37</td><td> Health Care HGB Corporation </td><td><para graph styleCode="Bill d"> 9.0 L </paragraph><b r/> (11.6-15.0) g/dL </td> Erythrocyte 89.5 fL 80.0-9 <td> [place] mean 6.0 fL 11/19/2019 [facility] corpuscular 07:37</td><td> Health Care volume [Entitic MCV </td><td> Corporati on volume] by Automated count 89.5
(80.0-96.0) fL </td> Erythrocyte 32.8 % 32.0-3 <td> [place] mean 6.0 % 11/19/2019 [facility] corpuscular 07:37</td><td> Health Care hemoglobin MCHC Corporation concentration </td><td> [Mass/volume] in Blood from 32.8 Fetus by Automated count
(32.0-36.0) % </td> Hematocrit 27.4 % 36.0-4 <td> [place] [Volume 5.0 % 11/19/2019 [facility] Fraction] of 07:37</td><td> Health Care Blood by HCT Corporation Automated count </td><td><para graph styleCode="Bill d"> 27.4 L </paragraph><b r/> (36.0-45.0) % </td> Erythrocyte 14.1 % 11.5-1 <td> [place] distribution 4.5 % 11/19/2019 [place] width [Entitic 07:37</td><td> Health Car e volume] by RDW </td><td> Corporation Automated count 14.1
(11.5-14.5) % </td> Platelet mean 10.7 fL 9.8-12 <td> [place] volume [Entitic .8 fL 11/19/2019 [facility] volume] in 07:37</td><td> Health Care Blood by MPV </td><td> Corporation Automated count 10.7
(9.8-12.8) fL </td> Lymphocytes 16.8 % 18.0-5 <td> [place] [#/volume] in 3.0 % 11/19/2019 [facility] Blood by 07:37</td><td> Health Care Automated count Lymphocytes Corporation </td><td><para graph styleCode="Bill d"> 16.8 L </paragraph><b r/> (18.0-53.0) % </td> Monocytes/Leuko 7.1 % 0.0-11 <td> [place] cytes [Pure .0 % 11/19/2019 [facility] number 07:37</td><td> Health Care fraction] in Monocytes. Corporation Blood by </td><td> Automated count 7.1
(0.0-11.0) % </td> Platelets 205 k/mm3 160-41 <td> [place] [#/volume] in 0 11/19/2019 [facility] Blood by k/mm3 07:37</td><td> Health Care Automated count Platelet Count Corporati on </td><td> 205
(160-410) k/mm3 </td> Basophils 0.1 % 0.0-2. <td> [place] [#/volume] in 0 % 11/19/2019 [facility] Blood by 07:37</td><td> Health Care Automated count Basophils Corporation </td><td> 0.1
(0.0-2.0) % </td> Immature 0.8 % 0.0-0. <td> [place] granulocytes/10 5 % 11/19/2019 [facility] 0 leukocytes in 07:37</td><td> Health Ca re Blood by IG% Corporation Automated count </td><td><para graph styleCode="Bill d"> 0.8 H </paragraph><b r/> (0.0-0.5) %
The IG fraction represents metamyelocytes , myelocytes and/or
promyelocytes and is only reported as part of the automated
differential when found at a percentage of less than 6.
If higher than 6%, a manual differential will be performed.

(0.0-0.5) % </td> Neutrophils [#] 75.0 % 36.0-7 <td> [place] in Body fluid 3.0 % 11/19/2019 [facility] by Manual count 07:37</td><td> Health Ca re Neutrophils Corporation </td><td><para graph styleCode="Bill d"> 75.0 H </paragraph><b r/> (36.0-73.0) % </td> Basophils+Eosin 0.2 % 0.0-5. <td> [place] ophils+Monocyte 0 % 11/19/2019 [facility] s [#/volume] in 07:37</td><td> [facility] Ca re Blood by Eosinophils Corporation Automated count </td><td> 0.2
(0.0-5.0) % </td> Ovalocytes Few <td> [place] [Presence] in 11/18/2019 [facility] Blood by Light 16:38</td><td> Health Car e microscopy Ovalocytes Corporation </td><td> Few
</td> Carbon dioxide, 20 mEq/L 22-30 <td> [place] total mEq/L 11/20/2019 [facility] [Moles/volume] 20:18</td><td> Health Car e in Serum or CO2 PredicSis Plasma </td><td><para graph styleCode="Bill d"> 20 L </paragraph><b r/> (22-30) mEq/L </td> Potassium 3.7 mEq/L 3.5-5. <td> [place] [Moles/volume] 1 11/20/2019 [place] in Serum or mEq/L 20:18</td><td> Health Care Plasma Potassium-Seru PredicSis m </td><td> 3.7
(3.5-5.1) mEq/L </td> Schistocytes Occasional <td> [place] [Presence] in 11/18/2019 [facility] Blood by Light 16:38</td><td> Health Car e microscopy Schistocytes Corporation </td><td> Occasional
</td> Glucose 95 mg/dL 70-105 <td> [place] [Mass/volume] mg/dL 11/20/2019 [facility] in Blood 20:18</td><td> Health Care Glucose-Serum PredicSis </td><td> 95
(70-105) mg/dL </td> Sodium 140 mEq/L 135-14 <td> [place] [Moles/volume] 5 11/20/2019 [facility] in Serum or mEq/L 20:18</td><td> Health Care Plasma Sodium-Serum PredicSis </td><td> 140
(135-145) mEq/L </td> Chloride 109 mEq/L 98-107 <td> [place] [Moles/volume] mEq/L 11/20/2019 [facility] in Serum or 20:18</td><td> Health Care Plasma Chloride PredicSis </td><td><para graph styleCode="Bill d"> 109 H </paragraph><b r/> (98-107) mEq/L </td> Creatinine 0.56 mg/dL 0.57-1 <td> [place] [Moles/volume] .11 11/20/2019 [facility] in Serum or mg/dL 20:18</td><td> Health Care Plasma Creatinine. Corporation </td><td><para graph styleCode="Bill d"> 0.56 L </paragraph><b r/> (0.57-1.11) mg/dL </td> Anion gap in 11 mEq/L 7-13 <td> [place] Serum or Plasma mEq/L 11/20/2019 [facility] 20:18</td><td> Health Care Anion Gap Corporation </td><td> 11
(7-13) mEq/L </td> Hemolysis index No <td> [facility] Serum or Hemolysis 11/20/2019 [facility] Plasma 20:18</td><td> Health Care Hemolysis Corporation Index </td><td> No Hemolysis
</td> Urea nitrogen 8 mg/dL 6-22 <td> [place] [Mass/volume] mg/dL 11/20/2019 [facility] in Blood 20:18</td><td> Health Care BUN </td><td> Corporation 8
(6-22) mg/dL </td> Calcium 8.7 mg/dL 8.6-10 <td> [place] [Mass/volume] .2 11/20/2019 [facility] in Blood mg/dL 20:18</td><td> Health Care Calcium PredicSis </td><td> 8.7
(8.6-10.2) mg/dL </td> Lipemic index No Lipemia <td> [facility] or 11/20/2019 [facility] Plasma 20:18</td><td> Health Care Lipemia Index Corporation </td><td> No Lipemia
</td> Glucose 109 mg/dL 70-105 <td> [place] [Mass/volume] mg/dL 11/21/2019 [facility] in Capillary 16:56</td><td> Health Care blood by Glucose - Corporation Glucometer Finger Stick </td><td><para graph styleCode="Bill d"> 109 H </paragraph><b r/> (70-105) mg/dL </td> Icteric index Non Icteric <td> [facility] or 11/20/2019 [facility] Plasma 20:18</td><td> Health Care Icteric Index Corporation </td><td> Non Icteric
</td> ID Date Data Source [id number] 10/31/2019 04:47:00 PM EST [facility] [id number] Corporation Name Value Range Interpretation Description Data Sup porting Code Source(s) Document(s ) Erythrocytes 4.08 m/mm3 3.80-5 <td> [place] [#/volume] in .10 10/31/2019 [facility] Blood m/mm3 16:47</td><td> Health Care RBC </td><td> PredicSis 4.08
(3.80-5.10) m/mm3 </td> Leukocytes 13.5 k/mm3 4.5-10 <td> [place] [#/volume] in .8 10/31/2019 [facility] Blood by k/mm3 16:47</td><td> Health Care Automated count WBC Corporation </td><td><para graph styleCode="Bill d"> 13.5 H </paragraph><b r/> (4.5-10.8) k/mm3 </td> Erythrocyte mean 32.7 % 32.0-3 <td> [place] corpuscular 6.0 % 10/31/2019 [facility] hemoglobin 16:47</td><td> [facility] [Mass/volume] in </td><td> Blood from Fetus by Automated 32.7 count
(32.0-36.0) % </td> Hemoglobin 11.9 g/dL 11.6-1 <td> [place] [Mass/volume] in 5.0 10/31/2019 [facility] Blood g/dL 16:47</td><td> Health Care HGB </td><td> PredicSis 11.9
(11.6-15.0) g/dL </td> Hematocrit 36.4 % 36.0-4 <td> [place] [Volume 5.0 % 10/31/2019 [facility] Fraction] of 16:47</td><td> Health Care Blood by HCT </td><td> PredicSis Automated count 36.4
(36.0-45.0) % </td> Erythrocyte mean 89.2 fL 80.0-9 <td> [place] corpuscular 6.0 fL 10/31/2019 [facility] volume [Entitic 16:47</td><td> Health Ca re volume] by MCV </td><td> PredicSis Automated count 89.2
(80.0-96.0) fL </td> Erythrocyte 13.9 % 11.5-1 <td> [place] distribution 4.5 % 10/31/2019 [facility] width [Entitic 16:47</td><td> Health Car e volume] by RDW </td><td> PredicSis Automated count 13.9
(11.5-14.5) % </td> Erythrocyte mean 29.2 pg 27.0-3 <td> [place] corpuscular 1.5 pg 10/31/2019 [facility] hemoglobin 16:47</td><td> Health Care [Entitic mass] MCH </td><td> Corporatio n by Automated count 29.2
(27.0-31.5) pg </td> Lymphocytes 19.8 % 18.0-5 <td> [place] [#/volume] in 3.0 % 10/31/2019 [facility] Blood by 16:47</td><td> Health Care Automated count Lymphocytes Corporation </td><td> 19.8
(18.0-53.0) % </td> Platelets 242 k/mm3 160-41 <td> [place] [#/volume] in 0 10/31/2019 [facility] Blood by k/mm3 16:47</td><td> Health Care Automated count Platelet Count Corporati on </td><td> 242
(160-410) k/mm3 </td> Monocytes/Leukoc 5.1 % 0.0-11 <td> [place] ytes [Pure .0 % 10/31/2019 [facility] number fraction] 16:47</td><td> Health C are in Blood by Monocytes. Corporation Automated count </td><td> 5.1
(0.0-11.0) % </td> Platelet mean 10.3 fL 9.8-12 <td> [place] volume [Entitic .8 fL 10/31/2019 [facility] volume] in Blood 16:47</td><td> Health C are by Automated MPV </td><td> Corporation count 10.3
(9.8-12.8) fL </td> Basophils+[place]osino 0.3 % 0.0-5. <td> [place] phils+Monocytes 0 % 10/31/2019 [facility] [#/volume] in 16:47</td><td> Health Care Blood by Eosinophils Corporation Automated count </td><td> 0.3
(0.0-5.0) % </td> Basophils 0.2 % 0.0-2. <td> [place] [#/volume] in 0 % 10/31/2019 [facility] Blood by 16:47</td><td> Health Care Automated count Basophils Corporation </td><td> 0.2
(0.0-2.0) % </td> Immature 1.5 % 0.0-0. <td> [place] granulocytes/100 5 % 10/31/2019 [facility] leukocytes in 16:47</td><td> Health Care Blood by IG% Corporation Automated count </td><td><para graph styleCode="Bill d"> 1.5 H </paragraph><b r/> (0.0-0.5) %
The IG fraction represents metamyelocytes , myelocytes and/or
promyelocytes and is only reported as part of the automated
differential when found at a percentage of less than 6.
If higher than 6%, a manual differential will be performed.

(0.0-0.5) % </td> Neutrophils [#] 73.1 % 36.0-7 <td> [place] in Body fluid by 3.0 % 10/31/2019 [facility] Manual count 16:47</td><td> Health Care Neutrophils Corporation </td><td><para graph styleCode="Bill d"> 73.1 H </paragraph><b r/> (36.0-73.0) % </td> Potassium 3.6 mEq/L 3.5-5. <td> [place] [Moles/volume] 1 10/31/2019 [facility] in Serum or mEq/L 16:47</td><td> Health Care Plasma Potassium-Seru Corporation m </td><td> 3.6
(3.5-5.1) mEq/L </td> Sodium 137 mEq/L 135-14 <td> [place] [Moles/volume] 5 10/31/2019 [facility] in Serum or mEq/L 16:47</td><td> Health Care Plasma Sodium-Serum PredicSis </td><td> 137
(135-145) mEq/L </td> Glucose 107 mg/dL 70-105 <td> [place] [Mass/volume] in mg/dL 10/31/2019 [facility] Blood 16:47</td><td> Health Care Glucose-Serum Corporation </td><td><para graph styleCode="Bill d"> 107 H </paragraph><b r/> (70-105) mg/dL </td> Carbon dioxide, 20 mEq/L 22-30 <td> [place] total mEq/L 10/31/2019 [facility] [Moles/volume] 16:47</td><td> Health Car e in Serum or CO2 Corporation Plasma </td><td><para graph styleCode="Bill d"> 20 L </paragraph><b r/> (22-30) mEq/L </td> Creatinine 0.59 mg/dL 0.57-1 <td> [place] [Moles/volume] .11 10/31/2019 [facility] in Serum or mg/dL 16:47</td><td> Health Care Plasma Creatinine. Corporation </td><td> 0.59
(0.57-1.11) mg/dL </td> Chloride 108 mEq/L 98-107 <td> [place] [Moles/volume] mEq/L 10/31/2019 [facility] in Serum or 16:47</td><td> Health Care Plasma Chloride Corporation </td><td><para graph styleCode="Bill d"> 108 H </paragraph><b r/> (98-107) mEq/L </td> Aspartate 12 U/L 4-35 <td> [place] aminotransferase U/L 10/31/2019 [facility] [Enzymatic 16:47</td><td> Health Care activity/volume] AST (SGOT) PredicSis in Serum or </td><td> Plasma 12
(4-35) U/L </td> Urea nitrogen 4 mg/dL 6-22 <td> [place] [Mass/volume] in mg/dL 10/31/2019 [facility] Blood 16:47</td><td> Health Care BUN Corporation </td><td><para graph styleCode="Bill d"> 4 L </paragraph><b r/> (6-22) mg/dL </td> Albumin 3.5 g/dL 3.4-4. <td> [place] [Mass/volume] in 8 g/dL 10/31/2019 [facility] Serum or Plasma 16:47</td><td> Health Ca re Albumin Corporation </td><td> 3.5
(3.4-4.8) g/dL </td> Alanine 12 U/L 6-55 <td> [place] aminotransferase U/L 10/31/2019 [facility] [Enzymatic 16:47</td><td> Health Care activity/volume] ALT (SGPT) Corporation in Serum or </td><td> Plasma 12
(6-55) U/L </td> Calcium 9.1 mg/dL 8.6-10 <td> [place] [Mass/volume] in .2 10/31/2019 [facility] Blood mg/dL 16:47</td><td> Health Care Calcium Corporation </td><td> 9.1
(8.6-10.2) mg/dL </td> Bilirubin.total 0.3 mg/dL 0.2-1. <td> [place] [Mass/volume] in 3 10/31/2019 [facility] Blood mg/dL 16:47</td><td> Health Care Bilirubin - Corporation Total </td><td> 0.3
(0.2-1.3) mg/dL </td> Proteins - Total 6.7 g/dL 6.4-8. <td> [place] 3 g/dL 10/31/2019 [facility] 16:47</td><td> Health Care Proteins - Corporation Total </td><td> 6.7
(6.4-8.3) g/dL </td> Anion gap in 9 mEq/L 7-13 <td> [place] Serum or Plasma mEq/L 10/31/2019 [facility] 16:47</td><td> Health Care Anion Gap Corporation </td><td> 9
(7-13) mEq/L </td> Icteric index of Not <td> [place] Serum or Plasma Icteric 10/31/2019 [facility] 16:47</td><td> Health Care Icteric Index PredicSis </td><td> Not Icteric
</td> Globulin 3.2 gm/dL 2.9-4. <td> [place] [Mass/volume] in 0 10/31/2019 [facility] Serum gm/dL 16:47</td><td> Health Care Globulin PredicSis </td><td> 3.2
(2.9-4.0) gm/dL </td> Lipemic index of No Lipemia <td> [place] Serum or Plasma 10/31/2019 [facility] 16:47</td><td> Health Care Lipemia Index PredicSis </td><td> No Lipemia
</td> Hemolysis index No <td> [place] of Serum or Hemolysis 10/31/2019 [facility] Plasma 16:47</td><td> Health Care Hemolysis Corporation Index </td><td> No Hemolysis
</td> Glucose 81 mg/dL 70-105 <td> [place] [Mass/volume] in mg/dL 10/31/2019 [facility] Capillary blood 19:21</td><td> Health Ca re by Glucometer Glucose - PredicSis Finger Stick </td><td> 81
(70-105) mg/dL </td> ID Date Data Source [id number] 10/14/2019 09:55:00 AM EST [facility] [id number] Corporation Name Value Range Interpretation Description Data Source(s ) Supporting Code Document(s ) Specimen 10/17/19 <td> [place] expiration 20 23:59 10/14/2019 [facility] Health date of Blood 09:55</td><td> Care Specimen PredicSis Expiration Date </td><td> 10/17/2019 23:59
</td> ABO-Rh Type O POS <td> [place] 10/14/2019 [facility] 09:55</td><td> Care ABO-Rh Type Corporation </td><td> O POS
</td> Antibody NEG <td> [place] Screen 10/14/2019 [facility] 09:55</td><td> Care Antibody Corporation Screen </td><td> NEG
</td> ID Date Data Source [id number] 10/14/2019 09:55:00 AM EST [facility] [id number] Corporation Name Value Range Interpretation Description Data Sup porting Code Source(s) Document(s ) Hemoglobin 11.8 g/dL 11.6-1 <td> [place] [Mass/volume] in 5.0 10/14/2019 [facility] Blood g/dL 09:55</td><td> Health Care HGB </td><td> Corporation 11.8
(11.6-15.0) g/dL </td> Erythrocyte mean 89.7 fL 80.0-9 <td> [place] corpuscular 6.0 fL 10/14/2019 [facility] volume [Entitic 09:55</td><td> Health Ca re volume] by MCV </td><td> PredicSis Automated count 89.7
(80.0-96.0) fL </td> Leukocytes 12.0 k/mm3 4.5-10 <td> [place] [#/volume] in .8 10/14/2019 [facility] Blood by k/mm3 09:55</td><td> Health Care Automated count WBC Corporation </td><td><para graph styleCode="Bill d"> 12.0 H </paragraph><b r/> (4.5-10.8) k/mm3 </td> Hematocrit 36.4 % 36.0-4 <td> [place] [Volume 5.0 % 10/14/2019 [facility] Fraction] of 09:55</td><td> Health Care Blood by HCT </td><td> Corporation Automated count 36.4
(36.0-45.0) % </td> Erythrocyte mean 29.1 pg 27.0-3 <td> [place] corpuscular 1.5 pg 10/14/2019 [facility] hemoglobin 09:55</td><td> Health Care [Entitic mass] MCH </td><td> Corporatio n by Automated count 29.1
(27.0-31.5) pg </td> Erythrocytes 4.06 m/mm3 3.80-5 <td> [place] [#/volume] in .10 10/14/2019 [facility] Blood m/mm3 09:55</td><td> Health Care RBC </td><td> Corporation 4.06
(3.80-5.10) m/mm3 </td> Platelets 213 k/mm3 160-41 <td> [place] [#/volume] in 0 10/14/2019 [facility] Blood by k/mm3 09:55</td><td> Health Care Automated count Platelet Count Corporati on </td><td> 213
(160-410) k/mm3 </td> Erythrocyte mean 32.4 % 32.0-3 <td> [place] corpuscular 6.0 % 10/14/2019 [facility] hemoglobin 09:55</td><td> [facility] concentration [facility] [Mass/volume] in </td><td> Blood from Fetus by Automated 32.4 count
(32.0-36.0) % </td> Platelet mean 9.9 fL 9.8-12 <td> [place] volume [Entitic .8 fL 10/14/2019 [facility] volume] in Blood 09:55</td><td> Health C are by Automated MPV </td><td> Corporation count 9.9
(9.8-12.8) fL </td> Erythrocyte 14.0 % 11.5-1 <td> [place] distribution 4.5 % 10/14/2019 [facility] width [Entitic 09:55</td><td> Health Car e volume] by RDW </td><td> Corporation Automated count 14.0
(11.5-14.5) % </td> Lymphocytes 19.0 % 18.0-5 <td> [place] [#/volume] in 3.0 % 10/14/2019 [facility] Blood by 09:55</td><td> Health Care Automated count Lymphocytes Corporation </td><td> 19.0
(18.0-53.0) % </td> Monocytes/Leukoc 5.9 % 0.0-11 <td> [place] ytes [Pure .0 % 10/14/2019 [facility] number fraction] 09:55</td><td> Health C are in Blood by Monocytes. [facility] Automated count </td><td> 5.9
(0.0-11.0) % </td> Basophils+Eosino 0.4 % 0.0-5. <td> [place] phils+Monocytes 0 % 10/14/2019 [facility] [#/volume] in 09:55</td><td> Health Care Blood by Eosinophils [facility] Automated count </td><td> 0.4
(0.0-5.0) % </td> Immature 1.4 % 0.0-0. <td> [place] granulocytes/100 5 % 10/14/2019 [facility] leukocytes in 09:55</td><td> Health Care Blood by IG% [facility] Automated count </td><td><para graph styleCode="Bill d"> 1.4 H </paragraph><b r/> (0.0-0.5) %
The IG fraction represents metamyelocytes , myelocytes and/or
promyelocytes and is only reported as part of the automated
differential when found at a percentage of less than 6.
If higher than 6%, a manual differential will be performed.

(0.0-0.5) % </td> Glucose 78 mg/dL 70-105 <td> [place] [Mass/volume] in mg/dL 10/14/2019 [facility] Blood 09:55</td><td> Health Care Glucose-Serum Corporation </td><td> 78
(70-105) mg/dL </td> Neutrophils [#] 73.1 % 36.0-7 <td> [place] in Body fluid by 3.0 % 10/14/2019 [facility] Manual count 09:55</td><td> Health Care Neutrophils Corporation </td><td><para graph styleCode="Bill d"> 73.1 H </paragraph><b r/> (36.0-73.0) % </td> Basophils 0.2 % 0.0-2. <td> [place] [#/volume] in 0 % 10/14/2019 [facility] Blood by 09:55</td><td> Health Care Automated count Basophils Corporation </td><td> 0.2
(0.0-2.0) % </td> Potassium 3.8 mEq/L 3.5-5. <td> [place] [Moles/volume] 1 10/14/2019 [facility] in Serum or mEq/L 09:55</td><td> Health Care Plasma Potassium-Seru Corporation m </td><td> 3.8
(3.5-5.1) mEq/L </td> Sodium 135 mEq/L 135-14 <td> [place] [Moles/volume] 5 10/14/2019 [facility] in Serum or mEq/L 09:55</td><td> Health Care Plasma Sodium-Serum Corporation </td><td> 135
(135-145) mEq/L </td> Carbon dioxide, 21 mEq/L 22-30 <td> [place] total mEq/L 10/14/2019 [facility] [Moles/volume] 09:55</td><td> Health Car e in Serum or CO2 Corporation Plasma </td><td><para graph styleCode="Bill d"> 21 L </paragraph><b r/> (22-30) mEq/L </td> Urea nitrogen 4 mg/dL 6-22 <td> [place] [Mass/volume] in mg/dL 10/14/2019 [facility] Blood 09:55</td><td> Health Care BUN Corporation </td><td><para graph styleCode="Bill d"> 4 L </paragraph><b r/> (6-22) mg/dL </td> Chloride 109 mEq/L 98-107 <td> [place] [Moles/volume] mEq/L 10/14/2019 [facility] in Serum or 09:55</td><td> Health Care Plasma Chloride Corporation </td><td><para graph styleCode="Bill d"> 109 H </paragraph><b r/> (98-107) mEq/L </td> Alanine 14 U/L 6-55 <td> [place] aminotransferase U/L 10/14/2019 [facility] [Enzymatic 09:55</td><td> Health Care activity/volume] ALT (SGPT) Corporation in Serum or </td><td> Plasma 14
(6-55) U/L </td> Creatinine 0.58 mg/dL 0.57-1 <td> [place] [Moles/volume] .11 10/14/2019 [facility] in Serum or mg/dL 09:55</td><td> Health Care Plasma Creatinine. Corporation </td><td> 0.58
(0.57-1.11) mg/dL </td> Aspartate 10 U/L 4-35 <td> [place] aminotransferase U/L 10/14/2019 [facility] [Enzymatic 09:55</td><td> Health Care activity/volume] AST (SGOT) Corporation in Serum or </td><td> Plasma 10
(4-35) U/L </td> Bilirubin.total 0.3 mg/dL 0.2-1. <td> [place] [Mass/volume] in 3 10/14/2019 [facility] Blood mg/dL 09:55</td><td> Health Care Bilirubin - Corporation Total </td><td> 0.3
(0.2-1.3) mg/dL </td> Anion gap in 5 mEq/L 7-13 <td> [place] Serum or Plasma mEq/L 10/14/2019 [facility] 09:55</td><td> Health Care Anion Gap Corporation </td><td><para graph styleCode="Bill d"> 5 L </paragraph><b r/> (7-13) mEq/L </td> Proteins - Total 6.7 g/dL 6.4-8. <td> [place] 3 g/dL 10/14/2019 [facility] 09:55</td><td> Health Care Proteins - Corporation Total </td><td> 6.7
(6.4-8.3) g/dL </td> Calcium 9.0 mg/dL 8.6-10 <td> [place] [Mass/volume] in .2 10/14/2019 [facility] Blood mg/dL 09:55</td><td> Health Care Calcium Corporation </td><td> 9.0
(8.6-10.2) mg/dL </td> Globulin 3.2 gm/dL 2.9-4. <td> [place] [Mass/volume] in 0 10/14/2019 [facility] Serum gm/dL 09:55</td><td> Health Care Globulin Corporation </td><td> 3.2
(2.9-4.0) gm/dL </td> Hemolysis index No <td> [place] of Serum or Hemolysis 10/14/2019 [facility] Plasma 09:55</td><td> Health Care Hemolysis Corporation Index </td><td> No Hemolysis
</td> Albumin 3.5 g/dL 3.4-4. <td> [place] [Mass/volume] in 8 g/dL 10/14/2019 [facility] Serum or Plasma 09:55</td><td> Health Ca re Albumin Corporation </td><td> 3.5
(3.4-4.8) g/dL </td> Glucose 112 mg/dL 70-105 <td> [place] [Mass/volume] in mg/dL 10/14/2019 [facility] Capillary blood 14:40</td><td> Health Ca re by Glucometer Glucose - [employer] Finger Stick </td><td><para graph styleCode="Bill d"> 112 H </paragraph><b r/> (70-105) mg/dL </td> Magnesium 1.8 mg/dL 1.6-2. <td> [place] [Mass/volume] in 6 10/14/2019 [facility] Serum or Plasma mg/dL 09:55</td><td> [employer] Magnesium [employer] Level </td><td> 1.8
(1.6-2.6) mg/dL </td> Phosphate 3.8 mg/dL 2.3-4. <td> [place] [Mass/volume] in 7 10/14/2019 [facility] Serum or Plasma mg/dL 09:55</td><td> [employer] Inorganic [employer] Phosphorus </td><td> 3.8
(2.3-4.7) mg/dL </td> Icteric index of Not <td> [place] Serum or Plasma Icteric 10/14/2019 [facility] 09:55</td><td> Health Care Icteric Index Corporation </td><td> Not Icteric
</td> Lipemic index of No Lipemia <td> [place] Serum or Plasma 10/14/2019 [facility] 09:55</td><td> Health Care Lipemia Index Corporation </td><td> No Lipemia
</td> ID Date Data Source [id number] 09/25/2019 11:08:00 AM EST [facility] [id number] Corporation Name Value Range Interpretation Description Data Sup porting Code Source(s) Document(s ) Hemoglobin 10.7 g/dL 11.6-1 <td> 09/25/2019 [place] [Mass/volume 5.0 11:08</td><td> [facility] ] in Blood g/dL [facility] </td><td><Artify It raph styleCode="Bold "> 10.7 L </paragraph>
(11.6-15.0) g/dL </td> Erythrocytes 3.65 m/mm3 3.80-5 <td> 09/25/2019 [facility] [#/volume] .10 11:08</td><td> [facility] in Blood m/mm3 RBC Health Care </td><td><Artify It raph styleCode="Bold "> 3.65 L </paragraph>
(3.80-5.10) m/mm3 </td> Leukocytes 15.0 k/mm3 4.5-10 <td> 09/25/2019 [place] [#/volume] .8 11:08</td><td> [place] in Blood by k/mm3 WBC Health Care Automated </td><td><Artify It count raph styleCode="Bold "> 15.0 H </paragraph>
(4.5-10.8) k/mm3 </td> Erythrocyte 29.3 pg 27.0-3 <td> 09/25/2019 [place] mean 1.5 pg 11:08</td><td> [place] corpuscular MCH </td><td> Health Care hemoglobin [employer] [Entitic 29.3 mass] by Automated
count (27.0-31.5) pg </td> Erythrocyte 89.9 fL 80.0-9 <td> 09/25/2019 [place] mean 6.0 fL 11:08</td><td> [place] corpuscular MCV </td><td> Health Care volume [facility] [Entitic 89.9 volume] by Automated
count (80.0-96.0) fL </td> Hematocrit 32.8 % 36.0-4 <td> 09/25/2019 [place] [Volume 5.0 % 11:08</td><td> County Fraction] of HCT [facility] Blood by </td><td><Artify It Automated raph count styleCode="Bold "> 32.8 L </paragraph>
(36.0-45.0) % </td> Erythrocyte 32.6 % 32.0-3 <td> 09/25/2019 [place] mean 6.0 % 11:08</td><td> [place] corpuscular MCHC </td><td> Health Care hemoglobin [facility] concentratio 32.6 n [Mass/volume
] in Blood (32.0-36.0) % from Fetus </td> by Automated count Platelets 223 k/mm3 160-41 <td> 09/25/2019 [place] [#/volume] 0 11:08</td><td> [place] in Blood by k/mm3 Platelet Count Health Care Automated </td><td> Corporation count 223
(160-410) k/mm3 </td> Platelet 10.4 fL 9.8-12 <td> 09/25/2019 [place] mean volume .8 fL 11:08</td><td> County [Entitic MPV </td><td> Health Care volume] in Corporation Blood by 10.4 Automated count
(9.8-12.8) fL </td> Erythrocyte 13.9 % 11.5-1 <td> 09/25/2019 [place] distribution 4.5 % 11:08</td><td> [place] width RDW </td><td> Health Care [Entitic Corporation volume] by 13.9 Automated count
(11.5-14.5) % </td> Monocytes/Le 2.7 % 0.0-11 <td> 09/25/2019 [place] ukocytes .0 % 11:08</td><td> County [Pure number Monocytes. Health Care fraction] in </td><td> [facility] Blood by Automated 2.7 count
(0.0-11.0) % </td> Lymphocytes 10.6 % 18.0-5 <td> 09/25/2019 [place] [#/volume] 3.0 % 11:08</td><td> [place] in Blood by Lymphocytes Health Care Automated </td><td><ben Corporation count raph styleCode="Bold "> 10.6 L </paragraph>
(18.0-53.0) % </td> Basophils+Eo 0.0 % 0.0-5. <td> 09/25/2019 [place] sinophils+Mo 0 % 11:08</td><td> County nocytes Eosinophils Health Care [#/volume] </td><td> Corporation in Blood by Automated 0.0 count
(0.0-5.0) % </td> Immature 1.8 % 0.0-0. <td> 09/25/2019 [place] granulocytes 5 % 11:08</td><td> County /100 IG% Health Care leukocytes </td><td><ben Corporation in Blood by raph Automated styleCode="Bold count "> 1.8 H </paragraph>
(0.0-0.5) %
The IG fraction represents metamyelocytes, myelocytes and/or
promyelocytes and is only reported as part of the automated
differential when found at a percentage of less than 6.
If higher than 6%, a manual differential will be performed.

(0.0-0.5) % </td> Basophils 0.1 % 0.0-2. <td> 09/25/2019 [place] [#/volume] 0 % 11:08</td><td> [place] in Blood by [facility] Automated </td><td> Corporation count 0.1
(0.0-2.0) % </td> Sodium 135 mEq/L 135-14 <td> 09/25/2019 [place] [Moles/volum 5 11:08</td><td> County e] in Serum mEq/L Sodium-Serum Health Care or Plasma </td><td> Corporation 135
(135-145) mEq/L </td> Neutrophils 84.8 % 36.0-7 <td> 09/25/2019 [place] [#] in Body 3.0 % 11:08</td><td> [facility] fluid by [facility] Care Manual count </td><td><Artify It raph styleCode="Bold "> 84.8 H </paragraph>
(36.0-73.0) % </td> Glucose 146 mg/dL 70-105 <td> 09/25/2019 [place] [Mass/volume mg/dL 11:08</td><td> County ] in Blood Glucose-Serum Health Care </td><td><Artify It raph styleCode="Bold "> 146 H </paragraph>
(70-105) mg/dL </td> Potassium 4.0 mEq/L 3.5-5. <td> 09/25/2019 [place] [Moles/volum 1 11:08</td><td> County e] in Serum mEq/L Potassium-Serum Health Care or Plasma </td><td> [facility] 4.0
(3.5-5.1) mEq/L </td> Chloride 111 mEq/L 98-107 <td> 09/25/2019 [place] [Moles/volum mEq/L 11:08</td><td> [facility] e] in Serum Chloride Health Care or Plasma </td><td><Artify It raph styleCode="Bold "> 111 H </paragraph>
(98-107) mEq/L </td> Carbon 18 mEq/L 22-30 <td> 09/25/2019 [place] dioxide, mEq/L 11:08</td><td> [facility] total CO2 Health Care [Moles/volum </td><td><Artify It e] in Serum raph or Plasma styleCode="Bold "> 18 L </paragraph>
(22-30) mEq/L </td> Urea 4 mg/dL 6-22 <td> 09/25/2019 [place] nitrogen mg/dL 11:08</td><td> [facility] [Mass/volume BUN Health Care ] in Blood </td><td><Artify It raph styleCode="Bold "> 4 L </paragraph>
(6-22) mg/dL </td> Creatinine 0.54 mg/dL 0.57-1 <td> 09/25/2019 [place] [Moles/volum .11 11:08</td><td> [facility]] in Serum mg/dL Creatinine. Health Care or Plasma </td><td><Artify It raph styleCode="Bold "> 0.54 L </paragraph>
(0.57-1.11) mg/dL </td> Alanine 16 U/L 6-55 <td> 09/25/2019 [place] aminotransfe U/L 11:08</td><td> [facility] rase ALT (SGPT) Health Care [Enzymatic </td><td> Corporation activity/vol ume] in 16 Serum or
Plasma (6-55) U/L </td> Aspartate 13 U/L 4-35 <td> 09/25/2019 [place] aminotransfe U/L 11:08</td><td> [facility] rase AST (SGOT) Health Care [Enzymatic </td><td> Corporation activity/vol ume] in 13 Serum or
Plasma (4-35) U/L </td> Albumin 3.3 g/dL 3.4-4. <td> 09/25/2019 [place] [Mass/volume 8 g/dL 11:08</td><td> [facility] ] in Serum Albumin Health Care or Plasma </td><td><Artify It raph styleCode="Bold "> 3.3 L </paragraph>
(3.4-4.8) g/dL </td> Proteins - 6.1 g/dL 6.4-8. <td> 09/25/2019 [place] Total 3 g/dL 11:08</td><td> [facility] Proteins - Health Care Total [facility] </td><td><[employer]in raph styleCode="Bold "> 6.1 L </paragraph>
(6.4-8.3) g/dL </td> Bilirubin.to 0.2 mg/dL 0.2-1. <td> 09/25/2019 [place] max 3 11:08</td><td> [facility] [Mass/volume mg/dL Bilirubin - Health Care ] in Blood Total [facility] </td><td> 0.2
(0.2-1.3) mg/dL </td> Globulin 2.8 gm/dL 2.9-4. <td> 09/25/2019 [place] [Mass/volume 0 11:08</td><td> [facility] ] in Serum gm/dL Globulin Health Care </td><td><Artify It raph styleCode="Bold "> 2.8 L </paragraph>
(2.9-4.0) gm/dL </td> Calcium 8.7 mg/dL 8.6-10 <td> 09/25/2019 [place] [Mass/volume .2 11:08</td><td> County ] in Blood mg/dL Calcium Health Care </td><td> [facility] 8.7
(8.6-10.2) mg/dL </td> Anion gap in 6 mEq/L 7-13 <td> 09/25/2019 [place] Serum or mEq/L 11:08</td><td> County Plasma Anion Gap Health Care </td><td><Artify It raph styleCode="Bold "> 6 L </paragraph>
(7-13) mEq/L </td> Appearance Slightly-Clou <td> 09/24/2019 [facility] er of Urine dy 17:48</td><td> [facility] Appearance Health Care </td><td><Artify It raph styleCode="Bold "> Slightly-Cloudy * AB </paragraph>
(CLEAR) </td> Hemolysis No Hemolysis <td> 09/25/2019 [place] index of 11:08</td><td> [facility] Serum or Hemolysis Index Health Care Plasma </td><td> [facility] No Hemolysis
</td> Icteric Not Icteric <td> 09/25/2019 [place] index of 11:08</td><td> [facility] Serum or Icteric Index Health Care Plasma </td><td> [facility] Not Icteric
</td> Lipemic No Lipemia <td> 09/25/2019 [place] index of 11:08</td><td> [facility] Serum or Lipemia Index Health Care Plasma </td><td> PredicSis No Lipemia
</td> Specific 1.003 {} 1.000- <td> 09/24/2019 [place] gravity of 1.035 17:48</td><td> [facility] Urine by Specific Health Care Test strip [place] [facility] </td><td> 1.003
(1.000-1.035) </td> Glucose Negative <td> 09/24/2019 [place] [Presence] 17:48</td><td> [facility] in Urine by Glucose_ Health Care Test strip </td><td> Pred[facility]is Negative
(NEGATIVE) </td> Nitrite Negative <td> 09/24/2019 [place] [Presence] 17:48</td><td> County in Urine by Nitrites Health Care Test strip </td><td> Corporation Negative
(NEGATIVE) </td> Protein Negative <td> 09/24/2019 [place] [Presence] 17:48</td><td> County in Urine by Protein Health Care Automated Qualitative Corporation test strip </td><td> Negative
(NEGATIVE) </td> Urobilinogen 0.2 mg/dL 0.0-2. <td> 09/24/2019 [place] [Presence] 0 17:48</td><td> [place] in Urine by mg/dL Urobilinogen Health Care Automated </td><td> Corporation test strip 0.2
(0.0-2.0) mg/dL </td> Leukocyte Not Indicated <td> 09/24/2019 [facility] r esterase 17:48</td><td> County [Presence] Physiochemica Urine Health Care in Urine by l tests: Microscopic. Predic[facility]is Test strip Protein, </td><td> Leukocyte, Not Indicated Blood and
Nitrates are negative. Physiochemical Microscopic tests: Protein, exam not Leukocyte, performed. Blood and Nitrates are
negative. Microscopic exam not performed.

</td> Complement 149.00 mg/dL 83.00- <td> 09/25/2019 [facility] r C3 180.00 17:52</td><td> County [Mass/volume mg/dL Complement C3 Health Care ] in Serum </td><td> Corporation or Plasma 149.00
(83.00-180.00) mg/dL </td> Complement 41.80 mg/dL 18.00- <td> 09/25/2019 [place] C4 45.00 17:52</td><td> County [Units/volum mg/dL Complement C4 Health Care e] in Serum </td><td> Corporation or Plasma 41.80
(18.00-45.00) mg/dL </td> Leukocyte Negative <td> 09/24/2019 [place] esterase 17:48</td><td> County [Presence] Leukocytes Health Care in Urine by dianboom Test strip </td><td> Negative
(NEGATIVE) </td> Hemoglobin 5.1 % 4.0-5. <td> 09/24/2019 [place] A1C 6 % 23:41</td><td> [facility] Hemoglobin A1C Health Care </td><td> Predic[facility]is 5.1
(4.0-5.6) %
Increased risk for diabetes mellitus is seen in patients with HgA1C values
between 5.7-6.4%. Values > or = 6.5% are considered diagnostic of diabetes
mellitus.
Hemolytic anemias, hemoglobinopath ies, or recent transfusion may impact
HbA1c results. Clinical correlation is recommended.
===
ESTIMATED AVERAGE GLUCOSE (eAG)
---
RELATIONSHIP BETWEEN A1C AND eAG
===
A1C(%) eAG(mg/dL)
6 1 26
7 1 54
8 1 83
9 2 12
10 240
11 269
12 298
Source: Adapted from [place] [employer]. Standards of medical
care in diabetes-2014. Diabetes Care.2014;37([place]s pp 1):S14-S80, table 8.

(4.0-5.6) % </td> Glucose 92 mg/dL 70-105 <td> 09/25/2019 [place] [Mass/volume mg/dL 22:01</td><td> [facility] ] in [facility] Capillary [employer] blood by </td><td> Glucometer 92
(70-105) mg/dL </td> ID Date Data Source [id number] 09/24/2019 10:45:00 PM [facility] [id number] Corporation Name Value Range Interpretation Description Data Source(s ) Supporting Code Document(s ) Antibody NEG <td> [place] Screen 09/24/2019 [facility] 22:45</td><td> Care Antibody Corporation Screen </td><td> NEG
</td> ABO-Rh Type O POS <td> [place] 09/24/2019 [facility] 22:45</td><td> Care ABO-Rh Type Corporation </td><td> O POS
</td> Specimen 09/27/19 <td> [place] expiration 20 23:59 09/24/2019 [facility] date of Blood 22:45</td><td> Care Specimen Corporation Expiration Date </td><td> 09/27/2019 23:59
</td> Procedure Social History Code Duration Value Status Description Data Source(s ) Smoking 06/18/2020 social smoking completed social smoking MED[facility] (St 12:00:00 AM EDT social drinking social drinking [facility] ) Smoking 06/18/2020 Unknown if ever completed Unknown if ever MEDG EN (St 12:00:00 AM EDT smoked smoked [facility]) Smoking 04/19/2020 social smoking completed social smoking MEDGEN (St 12:00:00 AM EDT social drinking social drinking [facility]) Smoking 04/19/2020 Unknown if ever completed Unknown if ever MEDG EN (St 12:00:00 AM EDT smoked smoked Alicia Glynn [facility], ) Smoking 03/18/2020 social smoking completed social smoking MEDGEN (St 12:00:00 AM EDT social drinking social drinking [facility]) Smoking 03/18/2020 Unknown if ever completed Unknown if ever MEDG EN (St 12:00:00 AM EDT smoked [facility], ) Vital Signs ID Date Data Source UNK Name Value Range Interpretation Code Description Data Source(s) Body mass index 38.2 kg/m2 38.2 kg/m2 MEDGEN (S t Ming's (BMI) [Ratio] [facility], ) Diastolic blood 70 mm[Hg] 70 mm[Hg] MEDGEN (S t Ming's pressure [facility], ) Systolic blood 122 mm[Hg] 122 mm[Hg] MEDGEN (Giovanna's pressure [facility], ) Body weight 237 lb 237 lb [facility] ([facility], ) Body height 66 in 66 in [facility] ([facility], ) Body mass index 38.2 kg/m2 38.2 kg/m2 MEDGEN (S t Ming's (BMI) [Ratio] [facility], ) Diastolic blood 74 mm[Hg] 74 mm[Hg] MEDGEN (S t Ming's pressure [facility], ) Systolic blood 130 mm[Hg] 130 mm[Hg] MEDGEN (Giovanna's pressure [facility], ) Body weight 237 lb 237 lb MEDGEN ([facility], ) Body height 66 in 66 in [facility] ([facility], ) Body mass index 38.2 kg/m2 38.2 kg/m2 MEDGEN (S t Ming's (BMI) [Ratio] Medical, ) Diastolic blood 74 mm[Hg] 74 mm[Hg] MEDGEN (S t Ming's pressure [facility], ) Systolic blood 130 mm[Hg] 130 mm[Hg] MEDGEN (Giovanna's pressure [facility], ) Body weight 237 lb 237 lb MEDGEN ([facility], ) Body height 66 in [facility], ) Body mass index 36.6 kg/m2 36.6 kg/m2 MEDGEN (S t Ming's (BMI) [Ratio] Medical, ) Diastolic blood 72 mm[Hg] 72 mm[Hg] MEDGEN (S t Ming's pressure Medical, ) Systolic blood 130 mm[Hg] 130 mm[Hg] MEDGEN (Giovanna's pressure Medical, ) Body weight 227 lb 227 lb [facility] ([facility], ) Body height 66 in 66 in [facility]GEN ([facility], ) Body mass index 36.6 kg/m2 36.6 kg/m2 MEDGEN (S t Ming's (BMI) [Ratio] Medical, ) Diastolic blood 72 mm[Hg] 72 mm[Hg] MEDGEN (S t Ming's pressure Medical, ) Systolic blood 130 mm[Hg] 130 mm[Hg] MEDGEN (Giovanna's pressure Medical, ) Body weight 227 lb 227 lb [facility] ([facility], ) Body height 66 in 66 in [facility] ([facility], ) Body mass index 36.6 kg/m2 36.6 kg/m2 MEDGEN (S t Ming's (BMI) [Ratio] Medical, ) Diastolic blood 72 mm[Hg] 72 mm[Hg] MEDGEN (S t Ming's pressure Medical, ) Systolic blood 130 mm[Hg] 130 mm[Hg] MEDGEN (Giovanna's pressure Medical, ) Body weight 227 lb 227 lb [facility] ([facility], ) Body height 66 in 66 in [facility]GEN ([facility], ) Diastolic blood 60 {} Normal (applies to 60 {} [place] pressure non-numeric results) Coun ty [facility] Corporati on Systolic blood 105 {} Normal (applies to 105 {} [place] pressure non-numeric results) Coun ty [facility] Care Corporati on First Respiration 18.0000 {} Normal (applies to 18.0000 {} [place] rate Set non-numeric results) Coun ty [facility] Care Corporati on Heart rate 79.0000 {} Normal (applies to 79.0000 {} [place] keshav non-numeric results) Coun ty [facility] Care Corporati on Body temperature 98.3000 {} Normal (applies to 98.3000 {} [place] non-numeric results) Coun ty [facility] Care Corporati on wt - obtain Normal (applies to {} [place] valdovinos non-numeric results) Coun ty [facility] Care Corporati on weight - kg 102.2720 {} Normal (applies to 102.2720 {} [place] non-numeric results) Coun ty [facility] Care Corporati on Diastolic blood 67 {} Normal (applies to 67 {} [place] pressure non-numeric results) Coun ty [facility] Care Corporati on Systolic blood 127 {} Normal (applies to 127 {} [place] pressure non-numeric results) Coun ty Health Care Corporati on First Respiration 19.0000 {} Normal (applies to 19.0000 {} [place] rate Set non-numeric results) Coun ty [facility] Care Corporati on Heart rate 72.0000 {} Normal (applies to 72.0000 {} [place] keshav non-numeric results) Coun ty Health Care Corporati on Body temperature 98.2000 {} Normal (applies to 98.2000 {} [place] non-numeric results) Coun ty Health Care Corporati on No Vital Sign Normal (applies to [facility] information exists non-numeric results) [facility] for this episode. Care Co rporation wt - obtain Normal (applies to {} [facility] non-numeric results) [facility] on Heart rate 80 /min 80 /min [facility] ([facility], ) Respiratory rate 14 /min 14 /min [facility] ( [facility], ) Body temperature 98.6 F 98.6 F [facility] ( [facility], ) Inhaled oxygen 98 % 98 % [facility] ([facility], ) Body mass index 36 kg/m2 36 kg/m2 [facility] ([facility] (BMI) [Ratio] [facility], ) Diastolic blood 76 mm[Hg] 76 mm[Hg] [facility] ([facility], ) Systolic blood 126 mm[Hg] 126 mm[Hg] [facility] ([facility], ) Body weight 223 lb 223 lb [facility] ([facility], ) Body height 66 in 66 in MEDGEN ([facility], ) Heart rate 80 /min 80 /min MED[facility] ([facility], ) Respiratory rate 14 /min 14 /min [facility] ( [facility], ) Body temperature 98.6 F 98.6 F [facility] ( [facility], ) Inhaled oxygen 98 % 98 % [facility] ([facility], ) Body mass index 36 kg/m2 36 kg/m2 [facility] ([facility] (BMI) [Ratio] [facility], ) Diastolic blood 76 mm[Hg] 76 mm[Hg] [facility] ([facility], ) Systolic blood 126 mm[Hg] 126 mm[Hg] [facility] ([facility], ) Body weight 223 lb 223 lb [facility] ([facility], ) Body height 66 in 66 in MEDGEN ([facility], ) Heart rate 80 /min 80 /min [facility] ([facility], ) Respiratory rate 14 /min 14 /min MED[facility] ( [facility], ) Body temperature 98.6 F 98.6 F MED[facility] ( [facility], ) Inhaled oxygen 98 % 98 % [facility] ([facility], ) Body mass index 36 kg/m2 36 kg/m2 [facility] ([facility] (BMI) [Ratio] [facility], ) Diastolic blood 76 mm[Hg] 76 mm[Hg] [facility] ([facility], ) Systolic blood 126 mm[Hg] 126 mm[Hg] [facility] ([facility], ) Body weight 223 lb 223 lb [facility] ([facility], ) Body height 66 in 66 in MEDGEN ([facility], ) Patient Treatment Plan of Care Planned Activity Planned Date Details Description Data Source (s) Dilaudid (Hy 04/07/2020 05:01:29 [facility] Dilaudid (Hy 04/07/2020 02:50:21 [facility] Zofran (Ondansetron) 04/07/2020 02:33:22 [facility] MORphine Sulfate Inj 04/07/2020 02:27:16 [facility] Zofran 4mg/2mL (Onda 04/07/2020 01:25:47 [facility] 0.9% NaCl IV 04/07/2020 01:25:37 [facility] Bactrim 800mg/160mg 12/01/2019 02:15:02 [facility] Cor poration
== END 2020-07-04 17:43 | disposition home or self-care (01) ==
LOC: JERFT 16:49
DX: S93.402A Sprain of unspecified ligament of left ankle, initial encounter (principal)
CPT/HCPCS: 73610-TC-LT-FY; 73630-TC-LT; 99283-25

== ENCOUNTER 2021-09-11 15:13 | Emergency (ER) | payer MEDICARE, OTHER ==
[2021-09-11 16:03] VITALS: BP 115/82; PULSE 93; BMI 32.5
[2021-09-11 16:11] VITALS: TEMP 99.2
[2021-09-13 10:07] LABS: SARS-CoV-2 NAA Detected (Not Detected)
== END 2021-09-11 17:20 | disposition home or self-care (01) ==
LOC: JER 15:13
DX: B34.9 Viral infection, unspecified (principal)
CPT/HCPCS: 87804; 99283-25; C9803; U0003; U0005

== ENCOUNTER 2021-12-04 15:54 | Emergency (ER) | payer MEDICARE, OTHER ==
[2021-12-04 16:07] VITALS: BP 111/74; PULSE 104; BMI 35.2
== END 2021-12-04 17:03 | disposition left against medical advice (07) ==
LOC: JER 15:54
DX: T78.2XXA Anaphylactic shock, unspecified, initial encounter (principal)
CPT/HCPCS: 99281-25

== ENCOUNTER 2021-12-04 19:51 | Emergency (ER) | payer MEDICARE, OTHER ==
[2021-12-04 19:59] VITALS: BP 114/75; PULSE 110; TEMP 97.8; BMI 34.5
[2021-12-04] MEDS ORDERED: FAMOTIDINE 20 MG/50 ML IVPB 20 MG/50 ML MG IVPB ONE (20:33)
[2021-12-04] MEDS ORDERED: SODIUM CHLORIDE 0.9% 500 ML INFUS.BAG IV ONE (20:35)
[2021-12-04] MEDS ORDERED: diphenhydrAMINE HCL 25 MG CAPSULE (FP) PO ONE ×2 (20:52→20:57)
[2021-12-04] MEDS ORDERED: FAMOTIDINE 10 MG TABLET PO ONE (20:52)
[2021-12-04] MEDS ORDERED: FAMOTIDINE 10 MG TABLET ONE (20:57)
[2021-12-04 21:22] LABS: BASO % 0.4 % (0-2.0); EOS % 0.1 % (0-4.5); HEMATOCRIT 42.4 % (32.4-45.2); HEMOGLOBIN 14.1 GM/dL (10.7-15.3); LYMPH % 16.6 % (8-40); MCH 30.3 pg (25.7-33.7); MCHC 33.2 g/dl (32.0-36.0); MEAN CELL VOLUME 91.1 fl (80-96); MEAN PLT VOLUME 8.1 fl (7.5-11.1); MONO % 3.2 % (3.8-10.2); NEUT % 79.7 % (42.8-82.8); PLATELET COUNT 278 10^3/uL (134-434); RBC 4.66 M/mm3 (3.60-5.2); RDW 13.6 % (11.6-15.6)
[2021-12-04 21:41] LABS: CALCIUM 9.3 mg/dL (8.5-10.1)
[2021-12-04 21:44] LABS: CREATININE 0.8 mg/dL (0.55-1.3)
[2021-12-04 21:46] LABS: BILIRUBIN,TOTAL 0.2 mg/dL (0.2-1)
== END 2021-12-04 23:57 | disposition left against medical advice (07) ==
LOC: JER 19:51
DX: R07.9 Chest pain, unspecified (principal)
CPT/HCPCS: 36415; 71045-TC-FY; 80053; 84484; 85025; 93005; 93010; 99285-25

== ENCOUNTER 2022-10-18 12:55 | Emergency (ER) | payer OTHER ==
[2022-10-18 13:10] VITALS: BP 113/61; PULSE 80; RESP 18; TEMP 99; BMI 82.5
== END 2022-10-18 18:04 | disposition home or self-care (01) ==
LOC: JER 12:55
DX: R20.2 Paresthesia of skin (principal)
CPT/HCPCS: 99281-25

== ENCOUNTER 2023-03-09 10:41 | Emergency (ER) | payer OTHER ==
[2023-03-09 10:52] VITALS: RESP 20; BMI 37.4
[2023-03-09] MEDS ORDERED: SODIUM CHLORIDE 0.9% 500 ML INFUS.BAG IV ONE (11:21)
[2023-03-09] MEDS ORDERED: ONDANSETRON 4 MG/2 ML VIAL IVPUSH ONE (11:21)
[2023-03-09] MEDS ORDERED: morphine CARPU-JECT 4 MG/1 ML DISP.SYRIN IVPUSH ONE ×2 (11:21→13:40)
[2023-03-09] MEDS ORDERED: ACETAMINOPHEN 1000 MG/100 ML BAG IVPB ONE (11:21)
[2023-03-09] MEDS ORDERED: morphine SULFATE 4 MG/ML VIAL ONE ×2 (11:29→13:51)
[2023-03-09] MEDS ORDERED: ACETAMINOPHEN INJECTION 100 ML IVPB ONE (11:29)
[2023-03-09] MEDS ORDERED: ONDANSETRON 4 MG/2 ML VIAL ONE (11:29)
[2023-03-09 12:21] LABS: BASO % 0.4 % (0-2.0); EOS % 0.7 % (0-4.5); HEMATOCRIT 39.5 % (32.4-45.2); HEMOGLOBIN 12.9 GM/dL (10.7-15.3); LYMPH % 35.7 % (8-40); MCH 28.9 pg (25.7-33.7); MCHC 32.7 g/dl (32.0-36.0); MEAN CELL VOLUME 88.4 fl (80-96); MEAN PLT VOLUME 8.1 fl (7.5-11.1); MONO % 5.8 % (3.8-10.2); NEUT % 57.4 % (42.8-82.8); PLATELET COUNT 309 10^3/uL (134-434); RBC 4.47 M/mm3 (3.60-5.2); RDW 14.3 % (11.6-15.6); WHITE BLOOD COUNT 9.6 K/mm3 (4.0-10.0)
[2023-03-09 12:24] LABS: PH,URINE 6.5 (5.0-8.0); URINE APPEARANCE CLEAR; URINE BILIRUBIN NEGATIVE (NEGATIVE); URINE COLOR YELLOW; URINE GLUCOSE (UA) NEGATIVE (NEGATIVE); URINE KETONE NEGATIVE (NEGATIVE); URINE LEUK ESTERASE NEGATIVE (NEGATIVE); URINE NITRITE NEGATIVE (NEGATIVE); URINE PROTEIN NEGATIVE (NEGATIVE); URINE UROBILINOGEN 0.2 mg/dL (0.2-1.0)
[2023-03-09 12:24] LABS: INR 1.02 (0.83-1.09); PROTHROMBIN TIME (PATIENT) 11.8 SEC (9.7-13.0)
[2023-03-09 12:27] LABS: ACTIVATED PTT 30.6 SECONDS (25.2-36.5)
[2023-03-09 12:45] LABS: POTASSIUM 4.6 mmol/L (3.5-5.1)
[2023-03-09 12:46] LABS: CALCIUM 9.7 mg/dL (8.5-10.1)
[2023-03-09 12:47] LABS: ALBUMIN 3.7 g/dl (3.4-5.0); BLOOD UREA NITROGEN 5.3 mg/dL (7-18)
[2023-03-09 12:50] LABS: CREATININE 0.7 mg/dL (0.55-1.3)
[2023-03-09 12:52] LABS: BILIRUBIN,TOTAL 0.3 mg/dL (0.2-1); TOT PROT 7.3 g/dl (6.4-8.2)
[2023-03-09 15:21] VITALS: BP 105/70; PULSE 56; TEMP 98
== END 2023-03-09 16:52 | disposition home or self-care (01) ==
LOC: JER 10:41
PROC: 3E033NZ Introduction of Analgesics, Hypnotics, Sedatives into Peripheral Vein, Percutaneous Approach (ICD-10-PCS; principal; 2023-03-09)
PROC: 3E033GC Introduction of Other Therapeutic Substance into Peripheral Vein, Percutaneous Approach (ICD-10-PCS; 2023-03-09)
PROC: 3E033GC Introduction of Other Therapeutic Substance into Peripheral Vein, Percutaneous Approach (ICD-10-PCS; 2023-03-09)
PROC: 3E033NZ Introduction of Analgesics, Hypnotics, Sedatives into Peripheral Vein, Percutaneous Approach (ICD-10-PCS; 2023-03-09)
DX: R10.31 Right lower quadrant pain (principal); R11.2 Nausea with vomiting, unspecified
CPT/HCPCS: 36415; 74177-TC; 76830-TC; 80053; 81003; 83690; 85025; 85610; 85730; 86850; 86900; 86901; 87086; 93005; 93010; 96374; 96375; 96376; 99285-25